=== PATIENT | female | born 1975 | race Caucasian/White ===

== ENCOUNTER 2020-11-27 08:41 | Outpatient (REF) | payer BC, SELFPAY ==
[2020-11-27 11:16] LABS: MANUAL DIFF FLAG NO
[2020-11-27 11:35] LABS: Basophils Percent Auto 0.3 % (0-2); Eosinophils Absolute Auto 0.2 X10*3/uL (0.0-0.4); Eosinophils Percent Auto 2.7 % (0-4); Hematocrit 44.6 % (37-47); Hemoglobin 14.7 g/dl (12.0-16.0); Imm Gran Abs Auto 0.02 X10*3/uL (0.00-0.03); Imm Gran Pct Auto 0.3 % (0.0-0.4); Lymphocytes Absolute Auto 1.8 X10*3/uL (1.2-4.9); Lymphocytes Percent Auto 29.1 % (20-40); Mean Corpuscular Hemoglobin 30.2 pg (27.0-33.0); Mean Corpuscular Volume 91.8 fL (80-98); Mean Platelet Volume 10.7 fL (9.4-12.3); Monocytes Absolute Auto 0.7 X10*3/uL (0.1-1.2); Monocytes Percent Auto 10.6 % (2-11); Neutrophils Absolute Auto 3.6 X10*3/uL (2.0-8.3); Platelet Count 227 X10*3/uL (160-400); Red Blood Count 4.86 X10*6/uL (4.20-5.50); Red Cell Distribution Width 13.2 % (11.0-16.0); White Blood Count 6.2 X10*3/uL (4.8-10.8)
[2020-11-27 12:12] LABS: Alanine Aminotransferase 22 U/L (0-31); Anion Gap 12 (12-20); Aspartate Amino Transferase 24 U/L (5-31); Blood Urea Nitrogen 9 mg/dL (9-16); Carbon Dioxide 26 mmol/L (22-29); Chloride 105 mmol/L (96-108); Cholesterol 228 mg/dL; Estimated Glomerular Filt Rate > 60; Glucose Fasting 84 mg/dL (60-99); HDL Cholesterol 52 mg/dL; LDL Cholesterol Calculated 152 mg/dl; Potassium 4.3 mmol/L (3.3-5.1); Sodium 139 mmol/L (135-145); TSH reflex Free T4 2.06 uIU/mL (0.32-4.0); Triglycerides 123 mg/dL; Vitamin D 25-OH Total 19.9 ng/mL (>30)
== END 2020-11-27 08:42 | disposition home or self-care (01) ==
LOC: HO.HMGCLDS 08:41
PROVIDERS: PCP Internal Medicine; Visit Provider Internal Medicine
DX: Z00.01 Encounter for general adult medical examination with abnormal findings (principal); E66.9 Obesity, unspecified; I10 Essential (primary) hypertension; Z83.49 Family history of other endocrine, nutritional and metabolic diseases
CPT/HCPCS: 36415; 80048; 80061; 82306; 84443; 84450; 84460; 85025

== ENCOUNTER → 2021-01-21 10:51 | Outpatient (BNVA) | payer BC, SELFPAY | PROVIDERS: PCP Internal Medicine; Referring Provider Internal Medicine; Visit Provider Physician Assistant ==

== ENCOUNTER 2021-03-09 09:56 | Day surgery (SDC) | payer BC, SELFPAY ==
[2021-03-03 14:45] VITALS: BMI 33.1
[2021-03-09 10:10] VITALS: BP 170/86; PULSE 73; RESP 16; TEMP 36.3; O2SAT 99
--- NOTE | 2021-03-09 10:23 | P.CONAN_ITS ---
HPI - Anesthesia Eval Consult details Narrative: 46 yo female patient for colonoscopy PMF Active Problems Active Problems: All Active Problems (Updated 02/09/21 @ 12:35 by Deidre Foster MD) Cystitis (Acute) Pedal edema (Acute) Hemorrhoids (Acute) PCOS (polycystic ovarian syndrome) (Acute) Family history of colon cancer in father (Acute) Obesity (Acute) Family history of thyroid disease in mother (Acute) History of tension headache (Acute) Past Medical History Medical History Cystitis Family history of colon cancer in father Family history of thyroid disease in mother Hemorrhoids History of cholecystitis History of tension headache Obesity PCOS (polycystic ovarian syndrome) Family History Family History Father Colon cancer, Onset Age: 44 Substance abuse Mother Oral cancer Thyroid disease Substance abuse Brother Substance abuse Family history of problems with anesthesia: No Surgical History Surgical History H/O colonoscopy History of cholecystectomy Hx of section Hx of tubal ligation History of Problems with Anesthesia: No Social History Social History Household Members Other:: , kids Alcohol intake: never Patient Tobacco Use Status: Never used Tobacco e-Cigarette/Vaping Use: Never Used Are you DNR?: No Advance Directives: No Advance Directives Information Provided: No Advance Directives on File: No Current occupational status: employed Current occupation: [employer] Allergies Allergy/AdvReac Type Severity Reaction Status Date / Time clarithromycin [From Biaxin] Allergy Mild HIVES Verified 03/09/21 10:10 Exam Exam Date and Time: March 09, 2021 1023 Height,Weight and Vital Signs: Height 5 ft 4 in Weight 87.543 kg Last Vital Signs Temp 97.3 F 03/09/21 10:10 Pulse 73 03/09/21 10:10 Resp 16 03/09/21 10:10 BP 170/86 H 03/09/21 10:10 Pulse Ox 99 03/09/21 10:10 Airway Mallampati Class: II TM Dist: >3cm Neck ROM: Full Loose/Missing/Broken Teeth: No Heart: RRR Lungs: CTAB Assessment and Plan Assessment Anesthesia Assessment: Anesthesia Plan Discussed and Chart Reviewed Final Anesthetic Review Family History of Problems with Anesthesia: No History of Problems with Anesthesia: No NPO: Yes ASA Class: II Final Preanesthetic Review: No Changes in Pt Med Stat, Meds/Allgs Chart Reviewed, Consent Obtained/Reviewed and Anes Risks/Benef Reviewed Patient Risk: Low Procedure Risk: Low Assessment/Block/Sedation in SS: Assess/Block/Sedation-SS Anesthetic Plan Anesthetic Plan: MAC: Disposition: Standard PACU
--- NOTE | 2021-03-09 10:24 | P.HPSUR_ITS ---
Pre-Procedural Eval Section A Date of Service: 03/09/21 The patient is an INPATIENT: No The History & Physical has been completed within 30 days and I have reviewed it.: No Section B Chief Complaint: hx malignant neoplasm Details of Present Illness: Colon cancer screening, family history of colon cancer and polyps Relevant Family History (Specify if Yes): Yes Relevant Social History: None Present Medications: see Short Stay Collaborative assessment Medical History: Significant History (Family history of colon cancer in father F amily history of thyroid disease in mother Hemorrhoids History of cholecystitis History of tension headache Obesity PCOS (polycystic ovarian syndrome)) History of Previous Operations: Relevant previous surgery/procedure and date(s) (H/O colonoscopy History of cholecystectomy Hx of section Hx of tubal ligation) Allergies: Allergies Allergy/AdvReac Type Severity Reaction Status Date / Time clarithromycin [From Biaxin] Allergy Mild HIVES Verified 03/09/21 10:10 Review of Systems Sugical H&P ROS: Negative: Constitution, Cardiovascular, Respiratory and Gastrointestinal Exam Surgical H&P Exam: Normal: Heart, Normal: Extremities and Normal: Abdomen Plan Diagnosis/Plan: Unchanged I have reviewed the history and physical and performed a pertinent physical examination on my patient. No changes have occurred unless specified.
[2021-03-09] MEDS: Lactated Ringers 1,000 ML 100 ML IVCONT (10:35)
--- NOTE | 2021-03-09 10:39 | P.BOP_ITS ---
Brief Operative Note Date of Service: 03/09/21 Pre-op diagnosis: Colon cancer screening, family history of colon cancer and polyps Post-op diagnosis: other (Diverticulosis, hemorrhoids) Procedure: COLONOSCOPY TILL CECUM Consent: Indications for the procedure and potential complications of bleeding, perforation, reaction to medications and missed diagnosis were discussed with the patient and informed consent was obtained. Instrument: Olympus PCF H 190 L variable stiffness pediatric colonoscope Monitoring: Vital signs and clinical assessment, intermittent blood pressure monitoring, continuous EKG monitoring, Pulse oximetry and Carbon Dioxide monitoring were done throughout the procedure. Colon withdrawl time was 22 minutes. Procedure: The patient was placed in the left lateral decubitis position and pre-procedure medications were administered. After a digital rectal examination of the ano-rectum, the video colonoscope was inserted into the rectum and advanced through the colon to the cecum. The colonoscope was slowly withdrawn in a retrograde panoramic fashion and the colon mucosa was carefully examined including a retroflexed view of the rectum. Findings and interventions are described below. Procedure Difficulty: Colon was long and tortuous and there was some loop formation. No manuvers were required Findings: Terminal Ileum: Not evaluated Cecum: Normal Ascending Colon: Normal Transverse Colon: Normal Descending Colon: Moderate diverticulosis Sigmoid Colon: Moderate diverticulosis Rectum: Normal Ano-rectum: Moderate internal hemorrhoids, hypertrophied anal papillae and perianal skin tags Colon preparation: Excellent Impression and Post Procedure Diagnosis: Colonoscopy Findings: No polyps were detected Moderate diverticulosis seen in the left colon Moderate hemorrhoids on retroflexed exam and sukhjinder-anal skin tags. Plan: Patient has an appointment on 04/01/21 in the GI [facility] with ANTONI Yoon. Repeat Colonoscopy in 5 years due to positive family hx. Above findings were reviewed with the patient and a handout on diverticulosis was given in the discharge area Surgeon: Dennis Abel MD Anesthesia: MAC (Maureen Gonzalez CRNA) Was an Field Identification Specialist used for this Procedure?: Yes Field Identification Specialist: Luisa Rosado Estimated blood loss (mL): 0 Pathology: none sent Condition: stable Disposition: PACU
[2021-03-09 11:27] VITALS: BP 100/49; PULSE 66; RESP 16; TEMP 36.1; O2SAT 96
[2021-03-09 11:42] VITALS: BP 118/74; PULSE 68; RESP 16; TEMP 35.9; O2SAT 98
--- NOTE | 2021-03-09 15:52 | W.PM.OPN ---
Operative Note Operative Note Date of Service: 03/09/21 Narrative: Pre-op diagnosis:?Colon cancer screening, family history of colon cancer and polyps Post-op diagnosis:?other (Diverticulosis, hemorrhoids) Procedure:? COLONOSCOPY TILL CECUM Consent: Indications for the procedure and potential complications of bleeding, perforation, reaction to medications and missed diagnosis were discussed with the patient and informed consent was obtained. Instrument: Olympus PCF H 190 L variable stiffness pediatric colonoscope Monitoring: Vital signs and clinical assessment, intermittent blood pressure monitoring, continuous EKG monitoring, Pulse oximetry and Carbon Dioxide monitoring were done throughout the procedure. Colon withdrawl time was 22 minutes. Procedure: The patient was placed in the left lateral decubitis position and pre-procedure medications were administered. After a digital rectal examination of the ano-rectum, the video colonoscope was inserted into the rectum and advanced through the colon to the cecum. The colonoscope was slowly withdrawn in a retrograde panoramic fashion and the colon mucosa was carefully examined including a retroflexed view of the rectum. Findings and interventions are described below. Procedure Difficulty: Colon was long and tortuous and there was some loop formation.? No manuvers were required? Findings: Terminal Ileum: Not evaluated Cecum:? Normal Ascending Colon:? Normal Transverse Colon:? Normal Descending Colon:? Moderate diverticulosis Sigmoid Colon:? Moderate diverticulosis Rectum:? Normal Ano-rectum:? Moderate internal hemorrhoids, hypertrophied anal papillae and perianal skin tags Colon preparation: Excellent ? Impression and Post Procedure Diagnosis: Colonoscopy Findings: No polyps were detected Moderate diverticulosis seen in the left colon Moderate hemorrhoids on retroflexed exam and sukhjinder-anal skin tags. Plan: Patient has an appointment on 04/01/21 in the GI Clinic with ANTONI Yoon. Repeat Colonoscopy in 5 years due to positive family hx. Above findings were reviewed with the patient and? a handout on diverticulosis was given in the discharge area Surgeon:?Dennis Abel MD Anesthesia:?MAC (Maureen Gonzalez CRNA) Was an Apartment Groundskeeper used for this Procedure?:?Yes Apartment Groundskeeper:?Luisa Rosado Estimated blood loss (mL):?0 Pathology:?none sent Condition:?stable Disposition:?PACU
== END 2021-03-09 12:14 | disposition home or self-care (01) ==
PROVIDERS: PCP Internal Medicine; Visit Provider Internal Medicine Gastroenterology
PROC: 0DJD8ZZ Inspection of Lower Intestinal Tract, Via Natural or Artificial Opening Endoscopic (ICD-10-PCS; CPT 45378; principal; 2021-03-09 11:40)
DX: Z12.11 Encounter for screening for malignant neoplasm of colon (principal); Z80.0 Family history of malignant neoplasm of digestive organs; Z83.71 Family history of colonic polyps; K57.30 Diverticulosis of large intestine without perforation or abscess without bleeding; K62.89 Other specified diseases of anus and rectum; K64.8 Other hemorrhoids; K64.4 Residual hemorrhoidal skin tags; Z88.1 Allergy status to other antibiotic agents; Z79.899 Other long term (current) drug therapy; Z90.49 Acquired absence of other specified parts of digestive tract
CPT/HCPCS: 45378

== ENCOUNTER → 2021-04-01 08:24 | Outpatient (BNVA) | payer BC, SELFPAY | PROVIDERS: Visit Provider Physician Assistant ==

== ENCOUNTER → 2021-04-14 09:01 | Outpatient (BNVA) | payer BC, SELFPAY | PROVIDERS: PCP Internal Medicine; Visit Provider Surgery | DX: K64.4 Residual hemorrhoidal skin tags (principal); K64.8 Other hemorrhoids | CPT/HCPCS: 46600 ==

== ENCOUNTER 2021-07-13 06:42 | Day surgery (SDC) | payer BC, SELFPAY ==
[2021-07-06 19:18] VITALS: BMI 33.5
--- NOTE | 2021-07-12 11:42 | P.CONAN_ITS ---
Documented by User: Ruma Ascencio NP 07/12/21 11:42 HPI - Anesthesia Eval Consult details Narrative: 46yo F for EUA, Hemorrhoidectomy colonoscopy 03/2021 with MAC [facility] Active Problems Active Problems: All Active Problems (Updated 04/14/21 @ 09:28 by Anshu Hernandez MD) Pedal edema (Acute) Bleeding hemorrhoids (Acute) Cystitis (Acute) Hemorrhoids (Acute) PCOS (polycystic ovarian syndrome) (Acute) Family history of colon cancer in father (Acute) Obesity (Acute) Family history of thyroid disease in mother (Acute) History of tension headache (Acute) Past Medical History Medical History Bleeding hemorrhoids Cystitis Family history of colon cancer in father Family history of thyroid disease in mother Hemorrhoids History of cholecystitis History of tension headache Obesity PCOS (polycystic ovarian syndrome) Family History Family History Father Colon cancer, Onset Age: 44 Substance abuse Mother Oral cancer Thyroid disease Substance abuse Brother Substance abuse Family history of problems with anesthesia: No Surgical History Surgical History (Updated 07/07/21 @ 08:44 by Valentina Matute RN) H/O colonoscopy History of cholecystectomy Hx of section Hx of tubal ligation History of Problems with Anesthesia: No Social History Social History Household Members Other:: , kids Alcohol intake: never Patient Tobacco Use Status: Never used Tobacco e-Cigarette/Vaping Use: Never Used Use of substances other than those prescribed or required for medical reasons: No Are you DNR?: No Advance Directives: No Advance Directives Information Provided: No Advance Directives on File: No Recently lost weight without trying: No Nutrition Risks: No Nutritional Risk Patient : No Current occupational status: employed 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 Allergies Allergy/AdvReac Type Severity Reaction Status Date / Time clarithromycin [From Biaxin] Allergy Mild HIVES Verified 04/14/21 09:12 Home Medications Medication Instructions Recorded Confirmed Last Taken Type Excedrin Migraine 1 tab PO NEEDED 07/06/21 07/06/21 Unknown History Exam Exam Date and Time: July 12, 2021 1142 Height,Weight and Vital Signs: Height 5 ft 4 in Weight 88.451 kg Assessment and Plan Assessment Anesthesia Assessment: Chart Reviewed Final Anesthetic Review Family History of Problems with Anesthesia: No History of Problems with Anesthesia: No Documented by User: Messi Varela 07/13/21 08:33 [facility] Past Medical History Medical History Bleeding hemorrhoids Cystitis Family history of colon cancer in father Family history of thyroid disease in mother Hemorrhoids History of cholecystitis History of tension headache Obesity PCOS (polycystic ovarian syndrome) Functional capacity: independent ambulation Family History Family History Father Colon cancer, Onset Age: 44 Substance abuse Mother Oral cancer Thyroid disease Substance abuse Brother Substance abuse Surgical History Surgical History (Updated 07/07/21 @ 08:44 by Valentina Matute, LEAH) H/O colonoscopy History of cholecystectomy Hx of section Hx of tubal ligation Social History Social History Household Members Other:: , kids Alcohol intake: never Patient Tobacco Use Status: Never used Tobacco e-Cigarette/Vaping Use: Never Used Use of substances other than those prescribed or required for medical reasons: No Are you DNR?: No Advance Directives: No Advance Directives Information Provided: No Advance Directives on File: No Recently lost weight without trying: No Nutrition Risks: No Nutritional Risk Patient : No Current occupational status: employed 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 Allergies Allergy/AdvReac Type Severity Reaction Status Date / Time clarithromycin [From Biaxin] Allergy Mild HIVES Verified 04/14/21 09:12 Home Medications Medication Instructions Recorded Confirmed Last Taken Type Excedrin Migraine 1 tab PO NEEDED 07/06/21 07/06/21 Unknown History Exam Airway Mallampati Class: II Neck ROM: Full Loose/Missing/Broken Teeth: Yes Heart: rrr Lungs: bl breath sounds Assessment and Plan Final Anesthetic Review NPO: Yes ASA Class: II Final Preanesthetic Review: Meds/Allgs Chart Reviewed and Anes Risks/Benef Reviewed Patient Risk: Intermediate Procedure Risk: Intermediate Anesthetic Plan Anesthetic Plan: GA Disposition: Standard PACU
[2021-07-13] VITALS (14 sets, daily range): BP systolic 123–168; BP diastolic 72–102; PULSE 69–97; RESP 13–16; TEMP 36.1–36.3; O2SAT 98–100
[2021-07-13] MEDS: Lactated Ringers 1,000 ML 100 ML IVCONT (07:11)
--- NOTE | 2021-07-13 07:26 | MHC.SHP ---
Pre-Procedural Eval Section A Date of Service: 07/13/21 Section B Chief Complaint: Bleeding hemorrhoids Details of Present Illness: has bulky prolapsing hemorrhoids Relevant Family History (Specify if Yes): Yes Relevant Social History: Other (specify) Present Medications: see Short Stay Collaborative assessment Medical History: Significant History (obesity, PCOS, ) History of Previous Operations: No relevant previous surgery Allergies: Allergies Allergy/AdvReac Type Severity Reaction Status Date / Time clarithromycin [From Biaxin] Allergy Mild HIVES Verified 04/14/21 09:12 Review of Systems Sugical H&P ROS: Negative: Constitution, Cardiovascular, Respiratory, Neurological, Psychiatric, Hem-Onc, Allergic/Immunologic, Gastrointestinal, Genitourinary, Musculoskeletal, Integumentary, Endocrine and Eyes/Ears/Nose/Throat Exam Surgical H&P Exam: Normal: HEENT, Normal: Heart, Normal: Lungs, Normal: Extremities, Normal: Abdomen, Normal: Skin and Normal: Neurological Exam Comment: bulky hemorrhoids Plan Diagnosis/Plan: Unchanged I have reviewed the history and physical and performed a pertinent physical examination on my patient. No changes have occurred unless specified.
--- NOTE | 2021-07-13 09:31 | P.OP_ITS ---
Operative Note Operative Note Date of Service: 07/13/21 Narrative: Ppreop diagnosis: Internal and external hemorrhoids with bleeding Postop diagnosis: The same Procedure: Exam under anesthesia, Hemorrhoidectomy x2 columns Surgeon: Anshu Hernandez MD The patient is a 46-year-old female chronic complaints of large hemorrhoids with frequent bleeding. She understood the technique of hemorrhoidectomy. She was aware of the risks, benefits, and alternatives . She was brought to the operating room prone giovani-knife position under general anesthesia via endotracheal tube. The buttocks were retracted with wide tape laterally. The perianal area was prepped and draped in the usual sterile fashion. A surgical time-out was done. The patient received Cefotan 2 g IV preoperatively The perianal area was then infiltrated with lidocaine 1%. Examination of the anal orifice revealed bulky external hemorrhoids on the left and on the right side. I inserted abuse Staton retractor and examined the anal canal circumferentially. These hemorrhoidal columns were noted to mix of internal external. There were no other lesions seen. I proceeded to apply Gamboa grasper at the hemorrhoidal column on the left. This was used to retract the hemorrhoidal column. I applied a fqauae-cm-dhtfw chromic 3-0 stitch at this pedicle past the dentate line. I made an incision around this hemorrhoidal column he all the way to the perianal skin using blade 15. I excised this hemorrhoidal column above the plane of sphincters along this incision using Metzenbaum scissors. I closed the incision with arunning chromic 3-0 stitch with additional hemostatic jwyyzg-hu-ncpnx sutures being placed . The same procedure was duplicated on the hemorrhoidal column on the right. Again I applied a Gamboa grasper at this hemorrhoidal column. I made a zrfixe-fm-jhvff stitch at the pedicle using chromic 3-0. I may incision are this hemorrhoid column to the perianal skin using a blade 15. I excised this hemorrhoidal column along this incision above the plane of sphincters using scissors. I closed this incision with a running chromic 3-0 stitch. Additional hemostatic jzlkeh-ao-qjkai sutures were placed Once hemostasis was ensured, infiltrated the perianal area with Marcaine 0.5% fo r postop analgesia. The procedure was then completed The patient tolerated procedure well. There were no complication noted. Initial and final counts of sponges and instruments were correct. Estimated blood loss was about 25 cc The patient was extubated without difficulty and transferred to the recovery room with stable vital signs.
[2021-07-13] MEDS: oxyCODONE HCl Immed Release 5 MG TABLET 10 MG PO (10:19)
[2021-07-13] MEDS: fentaNYL citrate/PF 100 MCG/2 ML VIAL 25 MCG IVPUSH ×3 (10:21→10:43)
== END 2021-07-13 11:45 | disposition home or self-care (01) ==
PROVIDERS: PCP Internal Medicine; Visit Provider Surgery
PROC: (CPT 46260; principal; 2021-07-13 08:20)
DX: K64.8 Other hemorrhoids (principal); K64.4 Residual hemorrhoidal skin tags; Z88.1 Allergy status to other antibiotic agents; Z80.0 Family history of malignant neoplasm of digestive organs; Z79.899 Other long term (current) drug therapy; Z90.49 Acquired absence of other specified parts of digestive tract
CPT/HCPCS: 46260; 88304; J1100; J2250; J2405; J3010

== ENCOUNTER → 2021-07-26 08:51 | Outpatient (BNVA) | payer BC, SELFPAY | PROVIDERS: PCP Internal Medicine; Referring Provider Internal Medicine; Visit Provider Surgery ==

== ENCOUNTER → 2021-08-16 09:45 | Outpatient (BNVA) | payer BC, SELFPAY | PROVIDERS: PCP Internal Medicine; Referring Provider Internal Medicine; Visit Provider Surgery ==

== ENCOUNTER 2021-11-26 10:54 | Outpatient (REF) | payer BC, SELFPAY ==
[2021-11-26 14:01] LABS: Alanine Aminotransferase 11 U/L (0-31); Anion Gap 10 (12-20); Aspartate Amino Transferase 17 U/L (5-31); Blood Urea Nitrogen 9 mg/dL (9-16); Carbon Dioxide 26 mmol/L (22-29); Chloride 106 mmol/L (96-108); Cholesterol 232 mg/dL; Estimated Glomerular Filt Rate > 60; Glucose Fasting 80 mg/dL (60-99); HDL Cholesterol 50 mg/dL; LDL Cholesterol Calculated 161 mg/dl; Potassium 4.1 mmol/L (3.3-5.1); Sodium 138 mmol/L (135-145); Triglycerides 107 mg/dL
[2021-11-26 14:25] LABS: Vitamin D 25-OH Total 31.8 ng/mL (>30)
== END 2021-11-26 10:55 | disposition home or self-care (01) ==
LOC: HO.HMGCLDS 10:54
PROVIDERS: PCP Internal Medicine; Visit Provider Internal Medicine
DX: Z00.01 Encounter for general adult medical examination with abnormal findings (principal); E55.9 Vitamin D deficiency, unspecified; E66.9 Obesity, unspecified
CPT/HCPCS: 36415; 80048; 80061; 82306; 84450; 84460

== ENCOUNTER 2021-12-14 07:27 | Outpatient (REF) | payer BC, SELFPAY ==
--- NOTE | ~2021-12-14 | MM_ITS ---
EXAMINATION: MM SCREENING DIGITAL BREAST TOMOSYNTHESIS, BILATERAL CLINICAL INFORMATION: Screening. Asymptomatic. The lifetime risk of breast cancer based on the Tyrer-Cuzick Model is 12%. COMPARISON: Outside mammography: 07/05/2019, 01/11/2018, 12/28/2017, 02/01/2016 ([facility]). TECHNIQUE: Digital breast tomosynthesis is performed in both the craniocaudal and mediolateral oblique views along with computer-aided detection (CAD). Synthesized 2D images are generated from the tomosynthesis. FINDINGS: There are scattered areas of fibroglandular density (ACR BI-RADS breast composition Category b). Parenchymal pattern is similar to prior outside studies. There is no developing density or interval mass or architectural abnormality. Minor asymmetries central left breast on CC view is chronic. There are no abnormal calcifications. The axilla and skin contours are unremarkable. No significant changes. MM/MM tomosynthesis screening BI IMPRESSION: No mammographic evidence of malignancy. ASSESSMENT: BI-RADS 2: Benign RECOMMENDATION: Routine annual mammography screening. This patient's information was entered into a reminder system with a target due date for their next mammogram.
== END 2021-12-14 07:28 | disposition home or self-care (01) ==
LOC: HO.MAMMO 07:27
PROVIDERS: PCP Internal Medicine; Visit Provider Internal Medicine
DX: Z12.31 Encounter for screening mammogram for malignant neoplasm of breast (principal)
CPT/HCPCS: 77063; 77067

== ENCOUNTER 2022-06-10 15:21 | Outpatient (REF) | payer BC, SELFPAY ==
[2022-06-16 07:31] LABS: HPV mRNA E6/E7 rflx Not Detected (Not Detected)
== END 2022-06-10 15:22 | disposition home or self-care (01) ==
LOC: HO.LNP 15:21
PROVIDERS: Visit Provider Advanced Practice Midwife
DX: Z01.419 Encounter for gynecological examination (general) (routine) without abnormal findings (principal); Z11.51 Encounter for screening for human papillomavirus (HPV); N92.0 Excessive and frequent menstruation with regular cycle
CPT/HCPCS: 87624; 88142

== ENCOUNTER 2022-06-10 15:30 | Outpatient (REF) | payer BC, SELFPAY ==
[2022-06-10 16:03] LABS: Hemoglobin 13.7 g/dl (12.0-16.0); Mean Corpuscular HGB Conc 33.4 g/dl (31.0-35.0); Mean Corpuscular Hemoglobin 29.9 pg (27.0-33.0); Mean Corpuscular Volume 89.5 fL (80.0-98.0); Mean Platelet Volume 10.4 fL (9.4-12.3); Platelet Count 240 X10*3/uL (160-400); Red Blood Count 4.58 X10*6/uL (4.20-5.50); Red Cell Distribution Width 13.6 % (11.0-16.0); White Blood Count 9.1 X10*3/uL (4.8-10.8)
[2022-06-10 16:34] LABS: Thyroid Stimulating Hormone 2.23 uIU/mL (0.32-4.0)
[2022-06-10 18:12] LABS: CT PCR NOT DETECTED (Not Detect.); NG PCR NOT DETECTED (Not Detect.)
[2022-06-11 15:00] LABS: BV Int Neg Control Negative (Negative); BV Int Pos Control Positive (Positive)
== END 2022-06-10 15:31 | disposition home or self-care (01) ==
LOC: HO.LAB 15:30
PROVIDERS: PCP Internal Medicine; Visit Provider Advanced Practice Midwife
DX: Z11.3 Encounter for screening for infections with a predominantly sexual mode of transmission (principal); N92.1 Excessive and frequent menstruation with irregular cycle
CPT/HCPCS: 84443; 85027; 87480; 87491; 87510; 87591; 87660

== ENCOUNTER 2022-07-06 13:40 | Outpatient (REF) | payer BC, SELFPAY ==
--- NOTE | ~2022-07-06 | US_ITS ---
EXAMINATION: US PELVIS CLINICAL INFORMATION: Excessive and frequent menstruation with irregular cycle. COMPARISON: None TECHNIQUE: Ultrasound of the pelvis was performed using both transabdominal and transvaginal transducers along with Doppler. Transvaginal imaging was performed due to inadequate visualization transabdominally. FINDINGS: UTERUS: The uterus is anteverted and measures 8.9 x 5.4 x 5.6 cm. The double wall endometrial thickness is 1.3 cm. The uterus is smooth in contour and has normal myometrial echogenicity. There is a solitary isoechoic lesion in the anterior upper body of uterus measuring 1.1 x 0.93 x 1.5 cm suggestive of a fibroid. No additional lesions are seen. There are anechoic cysts seen in the cervix. ADNEXA: Both ovaries are visualized. There is normal color flow to the adnexa. There is no ovarian torsion. There is no pelvic ascites or fluid collection. Right ovary measures 2.95 x 1.41 x 2.73 cm and volume 5.95 mL. No focal lesion seen. Left ovary measures 4.21 x 1.63 x 2.80 cm and volume 10.6 mL. There is an anechoic cyst measuring 1.3 x 1.1 x 1.4 cm. There is no free fluid in the cul-de-sac. US/US pelvic and transvaginal IMPRESSION: 1. Small uterine fibroid. 2. Small nabothian cysts in the cervix. 3. Simple cyst left ovary. 4. The right ovary is unremarkable.
== END 2022-07-06 13:41 | disposition home or self-care (01) ==
LOC: HO.HMGCX 13:40
PROVIDERS: Visit Provider Advanced Practice Midwife
DX: N92.0 Excessive and frequent menstruation with regular cycle (principal)
CPT/HCPCS: 76830; 76856

== ENCOUNTER 2022-07-21 08:05 | Outpatient (REF) | payer BC, SELFPAY | END 2022-07-21 08:06 | disposition home or self-care (01) | LOC: HO.LNP 08:05 | PROVIDERS: PCP Internal Medicine; Visit Provider Advanced Practice Midwife | DX: Z71.2 Person consulting for explanation of examination or test findings (principal); N94.6 Dysmenorrhea, unspecified; N92.0 Excessive and frequent menstruation with regular cycle | CPT/HCPCS: 58100; 81025; 88305 ==

== ENCOUNTER → 2022-08-03 07:57 | Outpatient (BNVA) | payer BC, SELFPAY | PROVIDERS: PCP Internal Medicine; Visit Provider Advanced Practice Midwife | DX: N92.0 Excessive and frequent menstruation with regular cycle (principal) ==

== ENCOUNTER → 2022-08-11 14:33 | Outpatient (BNVA) | payer BC, SELFPAY | PROVIDERS: PCP Internal Medicine; Visit Provider Advanced Practice Midwife | DX: Z30.430 Encounter for insertion of intrauterine contraceptive device (principal) | CPT/HCPCS: 58300; 81025; J7298 ==

== ENCOUNTER 2022-08-26 07:45 | Outpatient (REF) | payer BC, SELFPAY ==
[2022-08-26 11:21] LABS: MANUAL DIFF FLAG NO
[2022-08-26 11:34] LABS: Basophils Percent Auto 0.5 % (0-2); Eosinophils Absolute Auto 0.2 X10*3/uL (0.0-0.4); Eosinophils Percent Auto 3.4 % (0-4); Hematocrit 39.9 % (37.0-47.0); Hemoglobin 13.3 g/dl (12.0-16.0); Imm Gran Abs Auto 0.02 X10*3/uL (0.00-0.03); Imm Gran Pct Auto 0.3 % (0.0-0.4); Lymphocytes Percent Auto 32.5 % (20-40); Mean Corpuscular HGB Conc 33.3 g/dl (31.0-35.0); Mean Corpuscular Hemoglobin 29.7 pg (27.0-33.0); Mean Corpuscular Volume 89.1 fL (80.0-98.0); Mean Platelet Volume 10.7 fL (9.4-12.3); Monocytes Absolute Auto 0.5 X10*3/uL (0.1-1.2); Monocytes Percent Auto 8.6 % (2-11); Neutrophils Absolute Auto 3.4 x10*3/uL (2.0-8.3); Neutrophils Percent Auto 54.7 % (45-73); Platelet Count 230 X10*3/uL (160-400); Red Blood Count 4.48 X10*6/uL (4.20-5.50); Red Cell Distribution Width 13.8 % (11.0-16.0); White Blood Count 6.1 X10*3/uL (4.8-10.8)
[2022-08-26 12:58] LABS: Alanine Aminotransferase 13 U/L (0-31); Anion Gap 12 (12-20); Aspartate Amino Transferase 17 U/L (5-31); Blood Urea Nitrogen 12 mg/dL (9-16); Calcium 8.7 mg/dL (8.4-10.2); Carbon Dioxide 23 mmol/L (22-29); Chloride 107 mmol/L (96-108); Cholesterol 216 mg/dL; Estimated Glomerular Filt Rate > 60; Glucose Fasting 99 mg/dL (60-99); HDL Cholesterol 50 mg/dL; LDL Cholesterol Calculated 142 mg/dl; Potassium 4.1 mmol/L (3.3-5.1); Sodium 138 mmol/L (135-145); Triglycerides 121 mg/dL
== END 2022-08-26 07:46 | disposition home or self-care (01) ==
LOC: HO.HMGCLDS 07:45
PROVIDERS: PCP Internal Medicine; Visit Provider Internal Medicine
DX: I10 Essential (primary) hypertension (principal); N92.0 Excessive and frequent menstruation with regular cycle
CPT/HCPCS: 36415; 80048; 80061; 84450; 84460; 85025

== ENCOUNTER → 2022-09-22 08:21 | Outpatient (BNVA) | payer BC, SELFPAY | PROVIDERS: PCP Internal Medicine; Visit Provider Advanced Practice Midwife | DX: Z13.89 Encounter for screening for other disorder (principal) ==

== ENCOUNTER 2022-11-15 07:11 | Outpatient (REF) | payer BC, SELFPAY ==
[2022-11-15 12:11] LABS: Alanine Aminotransferase 22 U/L (0-31); Anion Gap 9 (12-20); Aspartate Amino Transferase 20 U/L (5-31); Blood Urea Nitrogen 14 mg/dL (9-16); Carbon Dioxide 26 mmol/L (22-29); Chloride 110 mmol/L (96-108); Cholesterol 198 mg/dL; Estimated Glomerular Filt Rate > 60; Glucose Fasting 93 mg/dL (60-99); HDL Cholesterol 42 mg/dL; LDL Cholesterol Calculated 140 mg/dl; Potassium 4.2 mmol/L (3.3-5.1); Sodium 141 mmol/L (135-145); Triglycerides 83 mg/dL
== END 2022-11-15 07:12 | disposition home or self-care (01) ==
LOC: HO.HMGCLDS 07:11
PROVIDERS: PCP Internal Medicine; Visit Provider Internal Medicine
DX: E78.5 Hyperlipidemia, unspecified (principal); I10 Essential (primary) hypertension; E66.9 Obesity, unspecified
CPT/HCPCS: 36415; 80048; 80061; 84450; 84460

== ENCOUNTER 2022-11-16 11:07 | Outpatient (REF) | payer BC, SELFPAY ==
[2022-11-17 09:18] LABS: BV Int Neg Control Negative (Negative); BV Int Pos Control Positive (Positive)
== END 2022-11-16 11:08 | disposition home or self-care (01) ==
LOC: HO.LAB 11:07
PROVIDERS: PCP Internal Medicine; Visit Provider Advanced Practice Midwife
DX: N92.1 Excessive and frequent menstruation with irregular cycle (principal); R10.2 Pelvic and perineal pain; Z97.5 Presence of (intrauterine) contraceptive device
CPT/HCPCS: 81025; 87480; 87510; 87660

== ENCOUNTER 2022-11-30 12:16 | Outpatient (AMB) | payer BC, SELFPAY ==
--- NOTE | 2022-11-30 13:10 | A.OFFPC_ITS ---
Vital Signs 11/30/22 13:12 Height 5 ft 4 in Weight 191 lb BMI 32.8 BP 124/86 Blood Pressure Location Rt brachial Position Sitting Pulse 70 Pulse Source Pulse Oximeter Pulse Oximetry (%) 97 Oxygen Delivery Method Room Air Intake Visit Reasons: PE Intake Note: Pt is here today for her PE Allergies clarithromycin [From Biaxin] Allergy (Mild, Verified 07/04/23 00:30) HIVES Medication List - Last Reconciled 11/30/22 by Deidre Foster MD cetirizine (Zyrtec) 10 mg PO DAILY PRN ibuprofen 200 mg PO Q6H PRN levonorgestrel (Mirena) intrauterine losartan 50 mg PO DAILY multivitamin 1 tab PO DAILY Tobacco use date assessed: 11/30/22 HPI PE HPI Details 48-year-old lady with hypertension, dysl ipidemia, here today for physical exam. She had recent fasting labs done which showed normal electrolytes, fasting glucose and lipids except for elevated LDL cholesterol at 140 mg/dL. Complains of persistent pain in her left side of her neck which has been present now for the last week. Denies any history of trauma or any heavy lifting. This was accompanied occasionally by intermittent episodes of lightheadedness especially sudden changes in position. [facility]LY [facility] Medical History Fibroids Neck pain on left side Dyslipidemia Essential hypertension Obesity (BMI 30.0-34.9) Seasonal allergic rhinitis Hemorrhoids PCOS (polycystic ovarian syndrome) Family history of colon cancer in father Family history of thyroid disease in mother History of cholecystitis History of tension headache Surgical History History of hemorrhoidectomy (~07/2021) H/O colonoscopy History of cholecystectomy Hx of section Hx of tubal ligation Family History Father Colon cancer, Onset Age: 44 Substance abuse Mother Oral cancer Thyroid disease Substance abuse Brother Substance abuse Household Members Other:: , kids Housing Other:: mobile home Alcohol intake: never Patient Tobacco Use Status: Never used Tobacco e-Cigarette/Vaping Use: Never Used Current occupational status: employed 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 1. Little interest or pleasure in doing things: not at all 2. Feeling down, depressed, or hopeless: not at all 3. Trouble falling or staying asleep, or sleeping too much: not at all 4. Feeling tired or having little energy: several days 5. Poor appetite or overeating: not at all 6. Feeling bad about yourself - or that you are a failure or have let yourself or your family down: not at all 7. Trouble concentrating on things, such as reading the newspaper or watching television: not at all 8. Moving or speaking so slowly that other people could have noticed. Or the opposite - being so fidgety or restless that you have been moving around a lot more than usual: not at all 9. Thoughts that you would be better off or of hurting yourself in some way: not at all Total score: 1 Source: Developed by Drs. Leonel Ely, Lesia Saenz, Luis F Pulido and colleagues, with an educational rebecca from [employer]. Thrive Questionnaire Declines Thrive assessment: No Date Thrive assessed: 11/30/22 I am a: Patient What is your living situation today?: I have a steady place to live Within the past 12 months, did the food you bought not last and you didn't have the money to get more?: Never true Within the past 12 months, did you worry whether your food would run out before you got money to buy more?: Never true Do you have trouble paying for medicines?: No Do you have trouble getting transportation to medical appointments?: No Do you have trouble paying your heating and electricity bill?: No Do you have trouble taking care of your child, family member or friend?: No Do you have trouble with day-to-day activities such as bathing, preparing meals, shopping, managing finances, etc.?: No Are you currently unemployed and looking for a job?: No Are you interested in more education?: No KEN-7 AMB Questionnaire KEN-7 Date KEN - 7 assessed: 11/30/22 Feeling nervous, anxious, or on edge: 0 = Not at all Not being able to stop or control worryin = Not at all Worrying too much about different things: 0 = Not at all Trouble relaxin = Not at all Being so restless that it is hard to sit still: 0 = Not at all Becoming easily annoyed or irritable: 0 = Not at all Feeling afraid as if something awful might happen: 0 = Not at all Total KEN-7 score (0-4 normal; 5-9 mild; 10-14 moderate; 15-21 severe): 0 Source: Developed by Drs. Leonel Ely, Lesia Saenz, Luis F Pulido and colleagues, with an educational rebecca from [employer]. Review of Systems Const Denies body aches and Denies weakness Eyes Denies change in vision ENT Denies dizziness, Denies nasal congestion and Denies nasal discharge Card Denies chest pain, Denies lightheadedness and Denies dyspnea Resp Denies cough and Denies dyspnea GI Denies abdominal pain, Denies change in bowel habits and Denies heartburn Denies urinary frequency, Denies dysuria and Denies urinary urgency Musc Reports no additional complaints Skin/Breast Denies breast pain, Denies breast mass and Denies rash Neuro Denies dizziness and Denies weakness Psych Reports no additional complaints Endo Reports no additional complaints Alex/Lymph Reports no additional complaints Aller/Immun Reports seasonal rhinorrhea Physical exam (Primary Care) Vital Signs: Last Vital Signs Pulse 70 11/30/22 13:12 BP 124/86 11/30/22 13:12 Pulse Ox 97 11/30/22 13:12 Oxygen Delivery Method Room Air 11/30/22 13:12 BMI result Body Mass Index 32.8 Tobacco/Smoking Status: Tobacco use Status Tobacco use date assessed 11/30/22 11/30/22 13:20 Patient Tobacco Use Status Never used Tobacco 11/30/22 13:20 e-Cigarette/Vaping Use Never Used 11/30/22 13:20 PHQ-9: PHQ-9 Score PHQ-9: Total score 1 07/04/23 00:29 Thrive Assessment: Date of Thrive Assessment Date Thrive assessed 11/30/22 11/30/22 13:20 Const Other: Alert oriented x3, no acute distress noted ambulatory normal gait Nutritional Appearance: obese Orientation/consciousness: patient oriented x3 [facility] Ears: hearing grossly normal bilaterally General nose exam: Normal external nose present Face and sinus: Yes sinuses nontender and Yes face symmetric Mouth: Normal oral and palatal mucosa present, oropharynx normal and moist mucous membranes Eyes General: appearance normal, both eyes and all related structures Neck Neck: Yes full ROM, Yes no lymphadenopathy and Yes supple Chest Breast/axilla palpation: normal palpation of the breasts Resp Effort & Inspection: normal respiratory effort and able to speak in complete sentences Auscultation: clear to auscultation bilaterally Cardio Other: S1-S2 present regular rate rhythm no murmurs GI Inspection: Yes normal to inspection Palpation (GI): Soft to palpation, nontender, no guarding and no masses Auscultation: normal bowel sounds General: Yes other (Sees OB for routine Pap and pelvic exam) Back/Spine/Pelvis Cervical Spine: cervical muscular tenderness (On the left) Skin Lesions: no lesions Rashes: no rashes Trauma: no lacerations or abrasions Neuro General: patient oriented x3, gait normal, tone normal, moves all extremities, no focal motor deficits and CN's II-XI intact bilaterally Extrem General: Yes full ROM, Yes no joint enlargement, Yes no pedal edema and Yes normal gait Results Reviewed Results Reviewed: RUN: 11/30/22 2621 PAGE 1 [facility] [address] [place] [id number] Beef Trimmer: Clifford Blair M.D. Specimen Inquiry Name: Chary Restrepo Age/Sex: 47/F : 1975 Unit#: [id number] Attend Dr: Deidre Foster MD Re11/15/22 Status: DEP REF Location: [facility] Disch: SPEC : [id number] ERASMO: 11/15/22 STATUS: COMP REQ : [id number] RECD: 11/15/22-11[address] [facility] [address]: Deidre Foster MD COMP: 11/15/22-1210 ENTERED: 11/15/[address] [facility] [address]: ORDERED: Met Prof Fast, AST, ALT, Lipid Panel Test Result Flag Reference Site Sodium 141 135-145 mmol/L Potassium 4.2 3.3-5.1 mmol/L CL 110 H 96-108 mmol/L CO2 26 22-29 mmol/L Gap 9 L 12-20 BUN 14 9-16 mg/dL Creat 0.75 0.5-1.4 mg/dL EGFR > 60 NOTE: For -Gambian individuals, multiply the result by 1.210. Chronic Kidney Disease: Estimated GFR < 60 mL/min/1.7 3m2 Severe Kidney Disease: Estimated GFR < 15 mL/min/1.73m2 FBS 93 60-99 mg/dL CA 9.0 8.4-10.2 mg/dL AST (GOT) 20 5-31 U/L ALT (GPT) 22 0-31 U/L Triglyceride 83 mg/dL Desirable Triglyceride: less than 150 mg/dL Borderline High Triglyceride 150-199 mg/dL High Triglyceride: 200-499 mg/dL Very High Triglyceride: greater than or equal to 5OO mg/dL Chol 198 mg/dL Desirable Cholesterol: less than 200 mg/dL Borderline High Cholesterol: 200-239 mg/dL High Cholesterol: greater than 239 mg/dL LDL Calculated 140 mg/dl Desirable LDL: less than 100 mg/dL Near Optimal/Above Optimal LDL: 110-129 mg/dL Borderline High LDL: 130-159 mg/dL High LDL: 160-189 mg/dL Very High LDL: greater than or equal to 190 mg/dL HDL 42 mg/dL Desirable HDL: greater than 40 mg/dL Assessment and Plan Assessment & Plan (1) Annual visit for general adult medical examination with abnormal findings: Code(s): Z00.01 - Encounter for general adult medical examination with abnormal findings Plan: Will check appropriate labs. Recommended dental visit every 6 months and regular eye exams, at least every 2 years. Take adequate calcium in diet and vitamin-D 3 at 2000 IU per cap once a day, in addition to weight-bearing exercises to help maintain good muscle tone and weight control. Instructed to do self-breast exam, and continue to get yearly mammogram, has an appointment for her mammogram next month . She is also up-to-date with her screening colonoscopy done by Dr. Abel in 2020 with no polyps seen only hemorrhoids and moderate diverticulosis . She also is up-to-date with her cervical cancer screening, sees [facility] for her routine Pap and pelvic exam (2) Positional lightheadedness: Code(s): R42 - Dizziness and giddiness (3) Neck pain on left side: Code(s): M54.2 - Cervicalgia Plan: Advised to take ibuprofen 200 mg every 6 hours as needed for pain control, referred for physical therapy (4) Dyslipidemia: Code(s): E78.5 - Hyperlipidemia, unspecified Plan: Reviewed recent fasting lipid profile with patient with elevated LDL cholesterol at 140 mg/dL. . Continue with , in addition to adherence to low- cholesterol diet and regular exercise, at least 30 minutes 3 to 4 times a week. Advised patient to make healthy food choices, eat more fruits, vegetables, whole grains, wild caught fish and low-fat dairy. Limit amount of meat and fried or fatty food products, as well as processed foods and fast foods. Follow-up scheduled with repeat fasting lipid panel in months. (5) Essential hypertension: Code(s): I10 - Essential (primary) hypertension Plan: Blood pressure at goal of less than 130/80. Continue with current medication. Reinforced importance of following a low sodium diet, getting regular exercise, and lowering stress levels. (6) Obesity (BMI 30.0-34.9): Code(s): E66.9 - Obesity, unspecified Plan: Discussed need to increase activity and wt reduction. Recommended focusing on improving your health instead of dieting. : Eat Mediterranean diet, limit foods high in fat, sugar, and calories, eat slowly, pay attention to portion sizes, plan your meals ahead of time, start regular physical activity 150 minutes of moderate intensity exercise or 90 minutes/week of vigorous exercise and increase water intake. (7) Seasonal allergic rhinitis: Code(s): J30.2 - Other seasonal allergic rhinitis Qualifiers: Allergic rhinitis trigger: unspecified Qualified Code(s): J30.2 - Other seasonal allergic rhinitis Plan: Continue with cetirizine 10 mg at bedtime. (8) Family history of colon cancer in father: Comment: repeat symptomatic colonoscopy- 5 years- 2025 Code(s): Z80.0 - Family history of malignant neoplasm of digestive organs Plan: Patient already been seen by Dr. Abel who did a colonoscopy in 2020 with no polyps seen, showed presence of a moderate diverticulosis and presence of hemorrhoids external Orders: Orders PT Evaluation and Treatment 11/30/22 R42 - Dizziness and giddiness PT Evaluation and Treatment 11/30/22 M54.2 - Cervicalgia Coding Level of Care Code Est Pt Prev Care 40-64y(62325) Diagnoses Annual visit for general adult medical examination with abnormal findings Z00.01 Positional lightheadedness R42 Neck pain on left side M54.2 Dyslipidemia E78.5 Essential hypertension I10 Obesity (BMI 30.0-34.9) E66.9 Seasonal allergic rhinitis, unspecified trigger J30.2 Allergic rhinitis trigger: unspecified Family history of colon cancer in father Z80.0
[2022-11-30 13:12] VITALS: BP 124/86; PULSE 70; O2SAT 97; BMI 32.8
== END 2022-11-30 13:51 | disposition home or self-care (01) ==
LOC: HO.HMGC 12:16
PROVIDERS: PCP Internal Medicine; Visit Provider Internal Medicine
DX: Z00.00 Encounter for general adult medical examination without abnormal findings (principal); R42 Dizziness and giddiness; M54.2 Cervicalgia; E78.5 Hyperlipidemia, unspecified; I10 Essential (primary) hypertension; E66.9 Obesity, unspecified; J30.2 Other seasonal allergic rhinitis; Z80.0 Family history of malignant neoplasm of digestive organs
CPT/HCPCS: 99396

== ENCOUNTER 2022-12-20 07:22 | Outpatient (REF) | payer BC, SELFPAY ==
--- NOTE | ~2022-12-20 | MM_ITS ---
EXAMINATION: MM SCREENING DIGITAL BREAST TOMOSYNTHESIS, BILATERAL CLINICAL INFORMATION: Screening. Asymptomatic. The lifetime risk of breast cancer based on the Tyrer-Cuzick Model is 12%. COMPARISON: Mammography: 12/14/2021; outside mammography 07/05/2019, 01/11/2018, 12/28/2017 ([facility]). TECHNIQUE: Digital breast tomosynthesis is performed in both the craniocaudal and mediolateral oblique views along with computer-aided detection (CAD). Synthesized 2D images are generated from the tomosynthesis. FINDINGS: There are scattered areas of fibroglandular density (ACR BI-RADS breast composition Category b). There are no significant masses, abnormal calcifications, or other abnormalities. Parenchymal pattern is similar to prior studies. There is no developing density or architectural abnormality. The axilla and skin contours are unremarkable. No significant changes. MM/MM tomosynthesis screening BI IMPRESSION: No mammographic evidence of malignancy. ASSESSMENT: BI-RADS 1: Negative RECOMMENDATION: Routine annual mammography screening. This patient's information was entered into a reminder system with a target due date for their next mammogram.
== END 2022-12-20 07:23 | disposition home or self-care (01) ==
LOC: HO.MAMMO 07:22
PROVIDERS: PCP Internal Medicine; Visit Provider Internal Medicine
DX: Z12.31 Encounter for screening mammogram for malignant neoplasm of breast (principal)
CPT/HCPCS: 77063; 77067

== ENCOUNTER 2023-01-31 15:00 | Outpatient (RCR) | payer BC, SELFPAY ==
--- NOTE | 2022-12-23 08:56 | MHC.PT.EP ---
[facility] [place] Office [place] Office [place] Office [address] [phone] F: [phone] F: [phone] F: [phone] F: [phone] Physical Therapy Plan of Care Date of Evaluation: Date of Surgery: Diagnosis: cervicalgia Assessment: 47 y/o RHD female referred to PT with cervicalgia. S/s consistent with L shoulder tendinopathy and cervical dysfunction resulting in pain with reaching, lifting, dressing, sitting unsupported, pushing, walking with arm swing secondary to decreased shoulder AROM, TTP medial L scapular border/ UT/ infraspinatus, impaired postural awareness, decreased scapular and RTC strength and slightly limited cervical AROM. Recommend PT 2x/week for 6 weeks to address impairments, implement HEP, and optimize functional mobility. Frequency and Duration: The patient will be seen 2x/week for 6 weeks Short Term Goals: 3 weeks Compliant with HEP Improve L shoulder AROM flexion to 150 with pain < 3/10 Jail Goals: 6 weeks I with HEP and self management of sx Pt will improved L shoulder strength by one MMT to facilitate lifting Pt will reports > 50% decrease in pain levels (IR ranges 3-7) Treatment Plan: Modalities to reduce pain, spasms and effusion. Manual therapy to restore motion and function. Therapeutic exercise to improve strength and flexibility. Neuromuscular re-education for posture and balance. Therapeutic activities to return to functional activities of daily living. Electronically signed by: Viktoriya Sevilla PT Please sign and return to therapist. Thank you for your referral.
--- NOTE | 2023-02-03 08:41 | MHC.PT.DC ---
[facility] [place] Office [place] Office [place] Office [address] [phone] F: [phone] F: [phone] F: [phone] F: [phone] Physical Therapy Discharge Report Diagnosis: cervicalgia Date of Surgery: Date of Evaluation: 12/23/22 Date of Discharge: 02/03/23 Treatments to Date: 10 Cancellations to Date: 2 No Shows to Date: 0 Discharge Status: Achieved Goals Improved Function Independent with HEP Discharge Summary: Pt appropriate for d/c secondary to improved function, decreased pain, and I with HEP. Electronically signed by: Viktoriya Sevilla PT Please sign and return to therapist. Thank you for your referral.
== END 2023-02-03 08:41 | disposition home or self-care (01) ==
LOC: HO.PTCHIC 15:00
PROVIDERS: PCP Internal Medicine; Visit Provider Internal Medicine
DX: M54.2 Cervicalgia (principal)
CPT/HCPCS: 97110; 97140; 97161

== ENCOUNTER 2023-04-21 12:53 | Outpatient (REF) | payer BC, SELFPAY ==
--- NOTE | ~2023-04-21 | US_ITS ---
EXAMINATION: US PELVIS COMPLETE CLINICAL INFORMATION: Bleeding with intrauterine device placement COMPARISON: Pelvic ultrasound 07/06/2022 TECHNIQUE: Transabdominal and transvaginal imaging was performed. FINDINGS: The uterus is of normal size though slightly heterogeneous in echotexture measuring 9.9 x 5.3 x 5.1 cm. A regular homogeneous endometrium is identified measuring 0.5 cm. Nabothian cysts in the cervix. Intrauterine device in place. A 2.1 cm posterior body subserosal myoma new from prior and a 2.3 cm anterior body subserosal myoma increased from prior previously 1.5 cm. Both ovaries are of normal size and echogenicity. The right measures 2.9 x 1.7 x 1.7 cm for a volume of 4.3 mL. The left measures 2.5 x 1.9 x 2.4 cm for a volume of 5.8 mL. There is no pelvic free fluid. US/US pelvic and transvaginal IMPRESSION: 1. Intrauterine device in place. 2. There are 2 subserosal myomas one new from prior and one increased from prior measuring up to 2.3 cm. Uterus is slightly heterogeneous echotexture, nonspecific however if any clinical concern for adenomyosis and MR pelvis could be obtained. 3. Unremarkable sonographic appearance of the ovaries.
== END 2023-04-21 12:54 | disposition home or self-care (01) ==
LOC: HO.HMGCX 12:53
PROVIDERS: PCP Internal Medicine; Visit Provider Advanced Practice Midwife
DX: Z30.431 Encounter for routine checking of intrauterine contraceptive device (principal); N92.6 Irregular menstruation, unspecified
CPT/HCPCS: 76830; 76856

== ENCOUNTER 2023-05-03 14:52 | Outpatient (AMB) | payer BC, SELFPAY ==
[2023-05-03 14:55] VITALS: BP 134/80; BMI 34.3
--- NOTE | 2023-05-03 14:55 | A.OFFVIS_ITS ---
Intake Vital Signs 05/03/23 14:55 Height 5 ft 4 in Weight 200 lb BMI 34.3 BP 134/80 Intake Visit Reasons: Ultra sound follow up Intake Note: The patient agreed to use of a medical scientific liaison during this encounter. Scribed for MAIA Lund by Sonali Tian medical scientific liaison, on 05/03/2023 Allergies clarithromycin [From Biaxin] Allergy (Mild, Verified 05/03/23 14:55) HIVES HPI HPI Comments History of Present Illness Details She is here to discuss US results due to bleeding with IUD. She is interested in removing IUD today due to brown discharge and spotting for 8 months since insertion. 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 See procedure note. [facility] Medical History Fibroids Neck pain on left side Dyslipidemia Essential hypertension Obesity (BMI 30.0-34.9) Seasonal allergic rhinitis Hemorrhoids PCOS (polycystic ovarian syndrome) Family history of colon cancer in father Family history of thyroid disease in mother History of cholecystitis History of tension headache Surgical History History of hemorrhoidectomy (~07/2021) H/O colonoscopy History of cholecystectomy Hx of section Hx of tubal ligation Family History Father Colon cancer, Onset Age: 44 Substance abuse Mother Oral cancer Thyroid disease Substance abuse Brother Substance abuse Social History Household Members Other:: , kids Housing Other:: mobile home Alcohol intake: never Patient Tobacco Use Status: Never used Tobacco e-Cigarette/Vaping Use: Never Used Current occupational status: employed 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 Cognitive needs: No Hearing needs: No Vision needs: Yes Female Reproductive History Menstrual Age of Menarche: 12 Physical Exam Vital Signs: Last Vital Signs BP 134/80 05/03/23 14:55 BMI result Body Mass Index 34.3 Const General: cooperative, healthy appearing, comfortable, no acute distress, well developed, alert and awake Other: General: Yes bladder normal to palpation External Female Exam: normal external appearance and normal appearance of the urethra Speculum Exam - Vagina: normal appearance of the vagina, normal palpation and normal vaginal discharge Speculum Exam - Cervix: normal appearance of the cervix, normal palpation and Other cervical findings present (IUD strings visible) Bimanual exam- vagina & uterus: normal bimanual exam, normal palpation, bladder normal to palpation and normal palpation Bimanual Exam- Adnexa, other: normal adnexae and no masses Office Procedures IUD Insert/Removal Details Details: HPI She presents for IUD removal. She is counseled and consented for procedure. She is aware of risks for bleeding, pain, infection, and injury to bowel or bladder. Procedure The patient was placed in the dorsal lithotomy position. A speculum was inserted vaginally, and the cervix and strings were visualized at the os. A ring forcep was utilized, and the patient was asked to give a deep cough while the strings were grasped and gently tugged at the same time, removing the IUD device intact. Minimal bleeding was observed. All of the equipment was removed. The patient tolerated the procedure well and left the office in good condition. IUD successfully removed today. Plan Monitor periods. Warnings reviewed with patient. Instructions given to call if temp >100.4, flu like sx, SOB, fatigue, lightheadedness/dizziness, abd pain, bloating or abd distention, bowel changes including rectal bleeding, bladder changes, foul odor or heavy vaginal bleeding. Call office with any questions or concerns. [id number] Removal Procedure code (CPT) selection complete Results Reviewed Results Reviewed: EXAMINATION: US PELVIS COMPLETE CLINICAL INFORMATION: Bleeding with intrauterine device placement COMPARISON: Pelvic ultrasound 07/06/2022 TECHNIQUE: Transabdominal and transvaginal imaging was performed. FINDINGS: The uterus is of normal size though slightly heterogeneous in echotexture measuring 9.9 x 5.3 x 5.1 cm. A regular homogeneous endometrium is identified measuring 0.5 cm. Nabothian cysts in the cervix. Intrauterine device in place. A 2.1 cm posterior body subserosal myoma new from prior and a 2.3 cm anterior body subserosal myoma increased from prior previously 1.5 cm. Both ovaries are of normal size and echogenicity. The right measures 2.9 x 1.7 x 1.7 cm for a volume of 4.3 mL. The left measures 2.5 x 1.9 x 2.4 cm for a volume of 5.8 mL. There is no pelvic free fluid. US/US pelvic and transvaginal IMPRESSION: 1. Intrauterine device in place. 2. There are 2 subserosal myomas one new from prior and one increased from prior measuring up to 2.3 cm. Uterus is slightly heterogeneous echotexture, nonspecific however if any clinical concern for adenomyosis and MR pelvis could be obtained. 3. Unremarkable sonographic appearance of the ovaries. Assessment & Plan Assessment & Plan (1) Encounter to discuss test results: Code(s): Z71.2 - Person consulting for explanation of examination or test findings Plan: Discussed: US findings of: 1. Intrauterine device in place. 2. There are 2 subserosal myomas one new from prior and one increased from prior measuring up to 2.3 cm. Uterus is slightly heterogeneous echotexture, nonspecific however if any clinical concern for adenomyosis and MR pelvis could be obtained. 3. Unremarkable sonographic appearance of the ovaries. Follow up with MD for ablation consult. All of her questions and concerns were addressed to the best of my ability and shared decision making. She is agreeable to plan of care. (2) Fibroids: Code(s): D21.9 - Benign neoplasm of connective and other soft tissue, unspecified (3) Encounter for IUD removal: Code(s): Z30.432 - Encounter for removal of intrauterine contraceptive device Plan: See procedure note. Coding Level of Care Code Procedure Only Diagnoses Encounter to discuss test results Z71.2 Fibroids D21.9 Encounter for IUD removal Z30.432 CPT Codes Details - CPT: 26824-DAU Removal ([id number])
== END 2023-05-03 16:02 | disposition home or self-care (01) ==
PROVIDERS: PCP Internal Medicine; Visit Provider Advanced Practice Midwife
DX: Z30.432 Encounter for removal of intrauterine contraceptive device (principal); Z71.2 Person consulting for explanation of examination or test findings; D21.9 Benign neoplasm of connective and other soft tissue, unspecified
CPT/HCPCS: 58301

== ENCOUNTER → 2023-05-03 14:52 | Outpatient (BNVA) | payer BC, SELFPAY | PROVIDERS: PCP Internal Medicine; Visit Provider Advanced Practice Midwife | DX: Z30.432 Encounter for removal of intrauterine contraceptive device (principal) | CPT/HCPCS: 58301 ==

== ENCOUNTER 2023-06-19 07:51 | Outpatient (AMB) | payer BC, SELFPAY ==
--- NOTE | 2023-06-19 08:01 | A.OFFVIS_ITS ---
Intake Vital Signs 06/19/23 08:02 Height 5 ft 4 in Weight 198 lb 6.656 oz BMI 34.1 BP 120/72 Intake Visit Reasons: Ablation Consult/Per Haley Finishing Trimmer Required: No Information Interpreted: non-clinical & clinical Accompanied by: Spouse Allergies clarithromycin [From Biaxin] Allergy (Mild, Verified 06/19/23 08:03) HIVES HPI HPI Comments History of Present Illness Details Presenting referred from Haley Ying CNM regarding abnormal uterine bleeding in myoma for discussion of options of treatment. The following workup was done so far: 08/29 H&H 13.3/39.9 06/28 TSH and GC and chlamydia negative 07/28 endometrial biopsy showed prolifer ative endometrium with no evidence of endometrial hyperplasia and/or malignancy 12/27 mammogram BI-RADS 1 06/28 co testing negative 04/29 pelvic ultrasound showed the follow ing: The uterus is of normal size though slightly heterogeneous in echotexture measuring 9.9 x 5.3 x 5.1 cm. A regular homogeneous endometrium is identified measuring 0.5 cm. Nabothian cysts in the cervix. Intrauterine device in place. A 2.1 cm posterior body subserosal myoma new from prior and a 2.3 cm anterior body subserosal myoma increased from prior previously 1.5 cm. Both ovaries are of normal size and echogenicity. The right measures 2.9 x 1.7 x 1.7 cm for a volume of 4.3 m L. The left measures 2.5 x 1.9 x 2.4 cm for a volume of 5.8 mL. There is no pelvic free fluid. The patient had Mirena IUD inserted for around 9 months and continuously had pelvic cramping and bleeding so IUD was removed in 04/29 [facility] Medical History Fibroids Neck pain on left side Dyslipidemia Essential hypertension Obesity (BMI 30.0-34.9) Seasonal allergic rhinitis Hemorrhoids PCOS (polycystic ovarian syndrome) Family history of colon cancer in father Family history of thyroid disease in mother History of cholecystitis History of tension headache Surgical History History of hemorrhoidectomy (~07/2021) H/O colonoscopy History of cholecystectomy Hx of section Hx of tubal ligation Family History Father Colon cancer, Onset Age: 44 Substance abuse Mother Oral cancer Thyroid disease Substance abuse Brother Substance abuse Social History Household Members Other:: , kids Housing Other:: mobile home Alcohol intake: never Patient Tobacco Use Status: Never used Tobacco e-Cigarette/Vaping Use: Never Used Current occupational status: employed 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 Cognitive needs: No Hearing needs: No Vision needs: Yes Female Reproductive History Menstrual Age of Menarche: 12 Review of Systems Const All systems reviewed & are unremarkable except as noted in HPI and below Reports as per HPI and Reports no additional complaints GI Reports no additional complaints Reports no additional complaints Physical Exam Vital Signs: Last Vital Signs BP 120/72 06/19/23 08:02 BMI result Body Mass Index 34.1 Assessment & Plan Assessment & Plan (1) Fibroids: Code(s): D21.9 - Benign neoplasm of connective and other soft tissue, unspecified Plan: Discussed with the patient the findings on pelvic ultrasound & the risk of myosarcoma; discussed with the patient the options of treatment including expectant management versus hysterectomy; the pros and cons, risks benefits of each approach were discussed with the patient including the fact that in cases of myosarcoma, surgical treatment can lead to early diagnosis and positively affects the prognosis; after further discussion, the patient decided to proceed with expectant management. Will repeat pelvic ultrasound periodically. Instructions given to patient to call in case any of the following occurs: pressure symptoms, abnormal uterine bleeding, pelvic pain; and to schedule a future office follow-up appointment for reassessment and to order a repeat ultrasound . All questions answered, the patient verbalized understanding and agreed with the plan . (2) Abnormal uterine bleeding (AUB): Code(s): N93.9 - Abnormal uterine and vaginal bleeding, unspecified Plan: Co testing up-to-date, GC and chlamydia taken CBC, TSH, HCG, and pelvic ultrasound done over the last few months. Discussed with the patient the different causes of abnormal bleeding including thyroid disorders, uterine and ovarian pathology, endometrial hyperplasia, carcinoma and other potential causes. Discussed with the patient the results of the work up done, repeat CBC order FSH/LH and schedule endometrial biopsy to r/o endometrial pathology. All questions answered and the patient verbalized understanding. Instructed the patient to schedule an appointment for an endometrial biopsy in 2 weeks. Orders: Orders Lutenizing Hormone Today N93.9 - Abnormal uterine and vaginal bleeding, unspecified Follicle Stimulating Hormone Today N93.9 - Abnormal uterine and vaginal bleeding, unspecified Complete Blood Count no Diff Today N93.9 - Abnormal uterine and vaginal bleeding, unspecified Coding Level of Care Code Est Pt Level 3 (11106) Diagnoses Fibroids D21.9 Abnormal uterine bleeding (AUB) N93.9
[2023-06-19 08:02] VITALS: BP 120/72; BMI 34.1
== END 2023-06-19 08:30 | disposition home or self-care (01) ==
PROVIDERS: PCP Internal Medicine; Visit Provider Obstetrics & Gynecology
DX: D21.9 Benign neoplasm of connective and other soft tissue, unspecified (principal); N93.9 Abnormal uterine and vaginal bleeding, unspecified
CPT/HCPCS: 99213

== ENCOUNTER → 2023-06-19 07:51 | Outpatient (BNVA) | payer BC, SELFPAY | PROVIDERS: PCP Internal Medicine; Visit Provider Obstetrics & Gynecology ==

== ENCOUNTER 2023-06-26 08:03 | Outpatient (REF) | payer BC, SELFPAY ==
[2023-06-26 11:41] LABS: Hemoglobin 13.7 g/dl (12.0-16.0); Mean Corpuscular HGB Conc 32.6 g/dl (31.0-35.0); Mean Corpuscular Hemoglobin 30.6 pg (27.0-33.0); Mean Platelet Volume 10.7 fL (9.4-12.3); Platelet Count 218 X10*3/uL (160-400); Red Blood Count 4.47 X10*6/uL (4.20-5.50); Red Cell Distribution Width 13.5 % (11.0-16.0); White Blood Count 6.7 X10*3/uL (4.8-10.8)
[2023-06-27 07:29] LABS: Follicle Stimulating Hormone 7.8 mIU/mL; Lutenizing Hormone 24.3 mIU/mL
== END 2023-06-26 08:04 | disposition home or self-care (01) ==
LOC: HO.HMGCLDS 08:03
PROVIDERS: PCP Internal Medicine; Visit Provider Obstetrics & Gynecology
DX: N93.9 Abnormal uterine and vaginal bleeding, unspecified (principal)
CPT/HCPCS: 36415; 83001; 83002; 85027

== ENCOUNTER 2023-07-05 07:46 | Outpatient (AMB) | payer BC, SELFPAY ==
--- NOTE | 2023-07-05 07:51 | MHC.OFFVIS ---
Intake Vital Signs 07/05/23 07:54 Height 5 ft 4 in Weight 198 lb 6.656 oz BMI 34.1 BP 110/72 Intake Visit Reasons: EMB Allergies clarithromycin [From Biaxin] Allergy (Mild, Verified 07/04/23 00:30) HIVES [facility] Medical History Fibroids Neck pain on left side Dyslipidemia Essential hypertension Obesity (BMI 30.0-34.9) Seasonal allergic rhinitis Hemorrhoids PCOS (polycystic ovarian syndrome) Family history of colon cancer in father Family history of thyroid disease in mother History of cholecystitis History of tension headache Surgical History History of hemorrhoidectomy (~07/2021) H/O colonoscopy History of cholecystectomy Hx of section Hx of tubal ligation Family History Father Colon cancer, Onset Age: 44 Substance abuse Mother Oral cancer Thyroid disease Substance abuse Brother Substance abuse Social History Household Members Other:: , kids Housing Other:: mobile home Alcohol intake: never Patient Tobacco Use Status: Never used Tobacco e-Cigarette/Vaping Use: Never Used Current occupational status: employed 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 hysteroscopy D&C) & the risks were discussed with the patient including but not limited: pain, uterine perforation, bleeding, infection, possible injury to bladder, bowel, ureter, possible need for blood transfusion with all its possible risks. The patient verbalized understanding all questions answered and signed consent. UPT done in the office was negative The patient was placed into the dorsal lithotomy position; a speculum was inserted in the vagina. Using aseptic technique for the procedure, the cervix was cleansed with Betadine. The anterior lip of the cervix was grasped with a single tooth tenaculum. The uterus was sounded to 7 cm with a 4 mm Pipelle was used. Tissues samples were obtained and placed in formalin, in a patient labeled container and sent to the pathology department. At the end of the procedure, there was minimal bleeding noted The patient tolerated the procedure well and was discharged in good condition with the following instructions: Nothing in the vagina until the bleeding stops. No sex until the bleeding stops, to call if any of the following occurs: fever (>100.4), flu-like symptoms, abdominal pain, heavy bleeding, four smelling vaginal discharge. The patient was instructed to schedule a Follow up appointment in 2 weeks to discuss pathology results of the biopsy and treatment options. This note was generated with a voice recognition program. Some errors may have been overlooked during the review of this note. Sometimes these errors may affect the content or meaning of a given sentence. [id number] Biopsy Results AMB Test Urine AMB Test Urine Negative Last Edit by Natasha Ayala CMA on 07/05/23 08:00 Assessment & Plan Assessment & Plan Orders: Orders AMB HCG Urine Test Today Z32.02 - Encounter for test, result negative AMB Endometrial Biopsy Today N93.9 - Abnormal uterine and vaginal bleeding, unspecified Coding Level of Care Code Procedure Only CPT Codes Endometrial Biopsy - CPT: 66161-Pkaotytlngz Biopsy ([id number])
[2023-07-05 07:54] VITALS: BP 110/72; BMI 34.1
== END 2023-07-05 08:11 | disposition home or self-care (01) ==
PROVIDERS: PCP Internal Medicine; Visit Provider Obstetrics & Gynecology
DX: N93.9 Abnormal uterine and vaginal bleeding, unspecified (principal); Z32.02 Encounter for pregnancy test, result negative
CPT/HCPCS: 58100

== ENCOUNTER 2023-07-05 07:46 | Outpatient (REF) | payer BC, SELFPAY | END 2023-07-05 07:47 | disposition home or self-care (01) | LOC: HO.LNP 07:46 | PROVIDERS: PCP Internal Medicine; Visit Provider Obstetrics & Gynecology | DX: Z32.02 Encounter for pregnancy test, result negative (principal); N93.9 Abnormal uterine and vaginal bleeding, unspecified | CPT/HCPCS: 58100; 81025; 88305 ==

== ENCOUNTER 2023-08-10 11:58 | Outpatient (AMB) | payer BC, SELFPAY ==
[2023-08-10 12:02] VITALS: BP 120/84
--- NOTE | 2023-08-10 12:02 | MHC.OFFVIS ---
Intake Vital Signs 08/10/23 12:02 Height 5 ft 4 in BP 120/84 Intake Visit Reasons: EMB Results Allergies clarithromycin [From Biaxin] Allergy (Mild, Verified 08/10/23 12:05) HIVES Is last menstrual period known: Yes Last menstrual period: 07/13/23 HPI HPI Comments History of Present Illness Details The patient is presenting for follow-up to discuss the results of her abnormal uterine bleeding workup and options of treatment. The following workup was done.: H&H= 13.7/42 GC and chlamydia were negative. FSH in the premenopausal range, LH 24.3 in the menopausal range Endometrial biopsy pathology showed inactive endometrium with no evidence of hyperplasia and/or malignancy. Co testing was done in 06/28 was negative. Mammogram was done in 12/27 was BI-RADS 1. Pelvic ultrasound showed the following: The uterus is of normal size though slightly heterogeneous in echotexture measuring 9.9 x 5.3 x 5.1 cm. A regular homogeneous endometrium is identified measuring 0.5 cm. Nabothian cysts in the cervix. Intrauterine device in place. A 2.1 cm posterior body subserosal myoma new from prior and a 2.3 cm anterior body subserosal myoma increased from prior previously 1.5 cm. Both ovaries are of normal size and echogenicity. The right measures 2.9 x 1.7 x 1.7 cm for a volume of 4.3 mL. The left measures 2.5 x 1.9 x 2.4 cm for a volume of 5.8 mL. There is no pelvic free fluid. The patient had IUD removed after the pelvic ultrasound done in 04/29 [facility] Medical History Fibroids Neck pain on left side Dyslipidemia Essential hypertension Obesity (BMI 30.0-34.9) Seasonal allergic rhinitis Hemorrhoids PCOS (polycystic ovarian syndrome) Family history of colon cancer in father Family history of thyroid disease in mother History of cholecystitis History of tension headache Surgical History History of hemorrhoidectomy (~07/2021) H/O colonoscopy History of cholecystectomy Hx of section Hx of tubal ligation Family History Father Colon cancer, Onset Age: 44 Substance abuse Mother Oral cancer Thyroid disease Substance abuse Brother Substance abuse Social History Household Members Other:: , kids Housing Other:: mobile home Alcohol intake: never Patient Tobacco Use Status: Never used Tobacco e-Cigarette/Vaping Use: Never Used Current occupational status: employed Current occupation: [employer] Cognitive needs: No Hearing needs: No Vision needs: Yes Female Reproductive History Menstrual Age of Menarche: 12 Date of last menstrual period: 07/13/23 Review of Systems Const All systems reviewed & are unremarkable except as noted in HPI and below Reports as per HPI and Reports no additional complaints GI Reports no additional complaints Reports no additional complaints Physical Exam Vital Signs: Last Vital Signs BP 120/84 08/10/23 12:02 Assessment & Plan Assessment & Plan (1) Abnormal uterine bleeding (AUB): Comment: Arlen menopausal Code(s): N93.9 - Abnormal uterine and vaginal bleeding, unspecified Plan: Discussed with the patient the results of the work up done and options of treatment including but not limited to BCP's, cyclic Progesterone, Mirena IUD, endometrial ablation and hysterectomy. All pros, cons, risks and benefits of each option were discussed with the patient and the patient decided to go ahead with cyclic Provera, so a more detailed discussion re: Progesterone treatment including mechanism of action, benefits (regular menses, endometrial protection form unopposed estrogen and reduction in the risk of endometrial hyperplasia and/or cancer ...), risks (Thrombosis, mood changes, weight gain, breast soreness, ? increased breast ca, others). Instructions were given to take the medication 1 tablet daily starting day 15-24 and to schedule a 3 months follow-up appointment; patient verbalized understanding and agreed with the plan. (2) Fibroids: Code(s): D21.9 - Benign neoplasm of connective and other soft tissue, unspecified Plan: Discussed with the patient the findings on pelvic ultrasound & the risk of myosarcoma; Will repeat pelvic ultrasound periodically. All questions answered, the patient verbalized understanding and agreed with the plan . Medications: New medroxyprogesterone (Provera) start Provera 1 tablet daily from day 15-24 cyclically every months, day 1 being 1st day of menses 10 mg PO DAILY 30 tabs 3RF 10 days Coding Level of Care Code Est Pt Level 3 (51078) Diagnoses Abnormal uterine bleeding (AUB) N93.9 Fibroids D21.9
== END 2023-08-10 12:21 | disposition home or self-care (01) ==
LOC: HO.HWS 11:58
PROVIDERS: PCP Internal Medicine; Visit Provider Obstetrics & Gynecology
DX: N93.9 Abnormal uterine and vaginal bleeding, unspecified (principal); D21.9 Benign neoplasm of connective and other soft tissue, unspecified
CPT/HCPCS: 99213

== ENCOUNTER → 2023-08-10 11:58 | Outpatient (BNVA) | payer BC, SELFPAY | PROVIDERS: PCP Internal Medicine; Visit Provider Obstetrics & Gynecology ==

== ENCOUNTER 2023-10-10 14:03 | Outpatient (AMB) | payer BC, SELFPAY ==
--- NOTE | 2023-10-10 14:05 | MHC.OFFVIS ---
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 She is doing well with no concerns. Reports feeling much better after removing her Mirena IUD . And is taking Provera for the heavy menses. Last dose taken 09/20, and did not have a bleed yet. Not eating healthy a diet, no regular exercise. Currently sexually active. Denies any vaginal dryness or irritation. Last pap smear; 06/2022. Last mammogram; 12/2022. Colonoscopy is UTD. Denies any family history of breast or ovarian cancer, FH colon cancer, father. Pt. is BRCA neg. [facility] Medical History Fibroids Neck pain on left side Dyslipidemia Essential hypertension Obesity (BMI 30.0-34.9) Seasonal allergic rhinitis Hemorrhoids PCOS (polycystic ovarian syndrome) Family history of colon cancer in father Family history of thyroid disease in mother History of cholecystitis History of tension headache Surgical History History of hemorrhoidectomy (~07/2021) H/O colonoscopy History of cholecystectomy Hx of section Hx of tubal ligation Family History Father Colon cancer, Onset Age: 44 Substance abuse Mother Oral cancer Thyroid disease Substance abuse Brother Substance abuse Social History Household Members Other:: , kids Housing Other:: mobile home Alcohol intake: never Patient Tobacco Use Status: Never used Tobacco e-Cigarette/Vaping Use: Never Used Current occupational status: employed 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 Cognitive needs: No Hearing needs: No Vision needs: Yes Female Reproductive History Menstrual Age of Menarche: 12 Date of last menstrual period: 08/11/23 control method: permanent sterilization Permanent Sterilization: BTL Total pregnancies: 1 Full term: 1 Number of Living Children: 1 Date of last pap smear: 06/10/22 (neg pap and hpv) Date of Mammogram: 12/20/22 (Birad 1) Review of Systems Const All systems reviewed & are unremarkable except as noted in HPI and below Reports as per HPI Eyes Reports no additional complaints ENT Reports no additional complaints Card Reports no additional complaints Resp Reports no additional complaints GI Reports as per HPI and Reports no additional complaints Reports as per HPI Musc Reports no additional complaints Skin/Breast Reports as per HPI Neuro Reports no additional complaints Psych Reports no additional complaints Endo Reports no additional complaints Alex/Lymph Reports no additional complaints Aller/Immun Reports no additional complaints Physical Exam Vital Signs: Last Vital Signs BP 122/84 10/10/23 14:06 BMI result Body Mass Index 35.0 Const General: cooperative, healthy appearing, no acute distress, well developed and alert Orientation/consciousness: patient oriented x3 HEENT Head: Yes normal to inspection Eyes General: appearance normal, both eyes and all related structures Neck Neck: Yes normal visual inspection Thyroid: Thyroid normal Chest Chest palpation & inspection: normal inspection of the chest and other (no puckering, dimpling, peau de orange, retraction, discharge, masses) Breast/axilla inspection: normal inspection of the breasts Breast/axilla palpation: normal palpation of the breasts Resp Effort & Inspection: normal respiratory effort GI Inspection: Yes normal to inspection Palpation (GI): Soft to palpation Rectal Exam - Female: deferred General: Yes bladder normal to palpation External Female Exam: normal external appearance and normal appearance of the urethra Speculum Exam - Vagina: normal appearance of the vagina, normal palpation, normal vaginal discharge and vaginal bleeding (Small amount of blood at the cervical os) Speculum Exam - Cervix: normal appearance of the cervix and normal palpation Bimanual exam- vagina & uterus: normal bimanual exam, normal palpation, uterine size normal, bladder normal to palpation, normal palpation and non-tender Bimanual Exam- Adnexa, other: no masses OB/external & speculum: vaginal bleeding (Small amount of blood at the cervical os) Skin General skin exam: no rashes or lesions noted Rashes: no rashes Neuro General: patient oriented x3 Cognition (Neuro): normal cognition Extrem General: Yes normal to inspection Psych Attitude: cooperative Thought process: Normal thought process present Assessment & Plan Assessment & Plan (1) Encounter for well woman exam with routine gynecological exam: Code(s): Z01.419 - Encounter for gynecological examination (general) (routine) without abnormal findings Plan Discussed: Current recommendations for pap smears per ASCCP guidelines. Breast awareness, periodic self breast exams and yearly mammogram. Maintain a healthy lifestyle, well balanced diet, and routine exercise. Most likely due to the bled at the cervical exam today is going to start another cycle, she can start her Provera again for 10 days once her bleeding starts. Continue to use the Provera on day 1 of her cycle for 10 days for AUB. Most likely she is heading closer towards menopause, observe for bleeding patterns if anything unusual to call the office. She is enough refills for several months. Advised to make a follow up with Dr. Simeon in 2-3 months. Patient verbalizes understanding and agrees to the plan of care. She was given opportunity to ask questions and all questions were answered to the best of my ability. 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 This note is constructed using voice recognition software. While every effort has been made to ensure accuracy, personal secretary errors may have been included. Coding Level of Care Code Est Pt Prev Care 40-64y(62249) Diagnoses Encounter for well woman exam with routine gynecological exam Z01.419
[2023-10-10 14:06] VITALS: BP 122/84; BMI 35.0
== END 2023-10-10 14:54 | disposition home or self-care (01) ==
PROVIDERS: PCP Internal Medicine; Visit Provider Advanced Practice Midwife
DX: Z01.419 Encounter for gynecological examination (general) (routine) without abnormal findings (principal)
CPT/HCPCS: 99396

== ENCOUNTER → 2023-10-10 14:03 | Outpatient (BNVA) | payer BC, SELFPAY | PROVIDERS: PCP Internal Medicine; Visit Provider Advanced Practice Midwife ==

== ENCOUNTER 2023-12-08 07:50 | Outpatient (AMB) | payer BC, SELFPAY ==
--- NOTE | 2023-12-08 07:52 | MHC.PC.OV ---
Vital Signs 12/08/23 07:54 Height 5 ft 4 in Weight 200 lb BMI 34.3 BP 120/84 Blood Pressure Location Lt brachial Position Sitting Pulse 78 Pulse Source Pulse Oximeter Pulse Oximetry (%) 98 Oxygen Delivery Method Room Air Intake Visit Reasons: PE Intake Note: Patient here for physical exam. Allergies clarithromycin [From Biaxin] Allergy (Mild, Verified 12/08/23 08:15) HIVES Medication List - Last Reconciled 12/08/23 by Deidre Foster MD cetirizine (Zyrtec) 10 mg PO DAILY PRN ibuprofen 200 mg PO Q6H PRN losartan 50 mg PO DAILY Tobacco use date assessed: 12/08/23 Dental Screening Dental Screen Date: 12/08/23 Did you have a dental visit in the last 12 months?: Yes Did you have a dental problem in the last 6 months where you did not have access to dental care?: No Was dental information given to patient?: Patient has dentist HPI PE HPI Details 48 year old lady, obesity, seasonal allergies, here today for physical exam. She is up-to-date with her screening mammogram already has an appointment scheduled for repeat this month. She sees Dr. Simeon for her routine Pap and pelvic exam, currently has been having irregular menstrual cycles. She is up-to-date with her screening colonoscopy, due again in 2025 due to positive family history for colon cancer. 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 Blood pressure stable and controlled on losartan. [facility] Medical History (Updated 12/08/23 @ 08:40 by Deidre Foster MD) Fibroids Neck pain on left side Dyslipidemia Essential hypertension Obesity (BMI 30.0-34.9) Seasonal allergic rhinitis Hemorrhoids PCOS (polycystic ovarian syndrome) Family history of colon cancer in father Family history of thyroid disease in mother History of cholecystitis History of tension headache Surgical History History of hemorrhoidectomy (~07/2021) H/O colonoscopy History of cholecystectomy Hx of section Hx of tubal ligation Family History Father Colon cancer, Onset Age: 44 Substance abuse Mother Oral cancer Thyroid disease Substance abuse Brother Substance abuse Social History Household Members Other:: , kids Housing Other:: mobile home Alcohol intake: never Patient Tobacco Use Status: Never used Tobacco e-Cigarette/Vaping Use: Never Used Current occupational status: employed 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 1. Little interest or pleasure in doing things: not at all 2. Feeling down, depressed, or hopeless: not at all 3. Trouble falling or staying asleep, or sleeping too much: more than half the days 4. Feeling tired or having little energy: several days 5. Poor appetite or overeating: not at all 6. Feeling bad about yourself - or that you are a failure or have let yourself or your family down: not at all 7. Trouble concentrating on things, such as reading the newspaper or watching television: not at all 8. Moving or speaking so slowly that other people could have noticed. Or the opposite - being so fidgety or restless that you have been moving around a lot more than usual: not at all 9. Thoughts that you would be better off or of hurting yourself in some way: not at all Total score: 3 Depression Screening Interpretation: Negative Depression Screening Done: Yes Source: Developed by Drs. Leonel Ely, Lesia Saenz, Luis F Pulido and colleagues, with an educational rebecca from [employer]. Thrive Questionnaire Date Thrive assessed: 12/08/23 I am a: Patient What is your living situation today?: I have a steady place to live Within the past 12 months, did the food you bought not last and you didn't have the money to get more?: Never true Within the past 12 months, did you worry whether your food would run out before you got money to buy more?: Never true Do you have trouble paying for medicines?: No Do you have trouble getting transportation to medical appointments?: No Do you have trouble paying your heating and electricity bill?: No Do you have trouble taking care of your child, family member or friend?: No Do you have trouble with day-to-day activities such as bathing, preparing meals, shopping, managing finances, etc.?: No Are you currently unemployed and looking for a job?: No Are you interested in more education?: No Currently or been in a relationship where the following occur: I choose not to answer this question THRIVE Score: 0 AUDIT C Alcohol Use Questionnaire (AUDIT-C) 1. How often do you have a drink containing alcohol?: Monthly or less 2. How many drinks containing alcohol do you have on a typical day when you are drinking?: 1 or 2 3. How often do you have six or more drinks on one occasion?: Never Total Score: 1 Score Reviewed/Action Taken: No KEN-7 AMB Questionnaire KEN-7 Date KEN - 7 assessed: 12/08/23 Feeling nervous, anxious, or on edge: 0 = Not at all Not being able to stop or control worryin = Not at all Worrying too much about different things: 0 = Not at all Trouble relaxin = Not at all Being so restless that it is hard to sit still: 0 = Not at all Becoming easily annoyed or irritable: 0 = Not at all Feeling afraid as if something awful might happen: 0 = Not at all Total KEN-7 score (0-4 normal; 5-9 mild; 10-14 moderate; 15-21 severe): 0 Source: Developed by Drs. Leonel Ely, Lesia Saenz, Luis F Pulido and colleagues, with an educational rebecca from [employer]. KEN-7 Assessment Billing KEN-7 Assessment Tool: KEN-7 Assessment 81204 Review of Systems Const Reports as per HPI Eyes Details: Goes to [facility] for her routine eye exams Reports requires corrective lenses ENT Reports no additional complaints Card Denies chest pain, Denies irregular heart rhythm, Denies lightheadedness and Denies dyspnea Resp Denies cough and Denies dyspnea GI Reports no additional complaints Reports as per HPI Musc Reports no additional complaints Skin/Breast Denies breast skin changes, Denies breast pain, Denies breast mass and Denies rash Neuro Reports no additional complaints Psych Reports no additional complaints Endo Reports no additional complaints Alex/Lymph Reports no additional complaints Aller/Immun Reports seasonal rhinorrhea Physical exam (Primary Care) Vital Signs: Last Vital Signs Pulse 78 12/08/23 07:54 BP 120/84 12/08/23 07:54 Pulse Ox 98 12/08/23 07:54 Oxygen Delivery Method Room Air 12/08/23 07:54 BMI result Body Mass Index 34.3 Tobacco/Smoking Status: Tobacco use Status Tobacco use date assessed 12/08/23 12/08/23 07:57 Patient Tobacco Use Status Never used Tobacco 12/08/23 07:53 e-Cigarette/Vaping Use Never Used 12/08/23 07:53 Depression Screening Interpretation: Negative Thrive Assessment: Date of Thrive Assessment Date Thrive assessed 11/30/22 12/08/23 07:53 Currently or been in a relationship where the following occur: I choose not to answer this question Const Other: Alert oriented x3, no acute distress noted ambulatory normal gait Nutritional Appearance: obese Orientation/consciousness: patient oriented x3 HENMT Ears: hearing grossly normal bilaterally General nose exam: Normal external nose present Face and sinus: Yes face symmetric Mouth: Normal oral and palatal mucosa present, oropharynx normal and moist mucous membranes Eyes General: appearance normal, both eyes and all related structures Neck Neck: Yes full ROM, Yes no lymphadenopathy and Yes supple Chest Breast/axilla palpation: normal palpation of the breasts Resp Effort & Inspection: normal respiratory effort and able to speak in complete sentences Auscultation: clear to auscultation bilaterally Cardio Other: S1-S2 present regular rate rhythm no murmurs GI Inspection: Yes normal to inspection Palpation (GI): Soft to palpation, nontender, no guarding and no masses Auscultation: normal bowel sounds General: Yes no CVA tenderness and Yes other (Sees OB for routine Pap and pelvic exam) Back/Spine/Pelvis Back: no CVA tenderness and No back tenderness Skin Lesions: no lesions Rashes: no rashes Neuro General: patient oriented x3, gait normal, tone normal, moves all extremities, no focal motor deficits and CN's II-XI intact bilaterally Extrem General: Yes full ROM, Yes no joint enlargement, Yes no pedal edema and Yes normal gait Psych Appearance: grossly normal and well kempt Mental Status: mental status grossly normal Speech and movement: Normal speech and movement present Affect: normal affect Assessment and Plan Assessment & Plan (1) Annual visit for general adult medical examination with abnormal findings: Code(s): Z00.01 - Encounter for general adult medical examination with abnormal findings Plan: Will check appropriate labs. Continue with regular dental visit every 6 months and regular eye exams, at least every 2 years, goes to [facility]. Take adequate calcium in diet and vitamin-D 3 at 2000 IU per cap once a day, in addition to weight-bearing exercises to help maintain good muscle tone and weight control. Instructed to do self-breast exam, and continue with yearly mammogram, has an appointment already for her routine mammogram this month scheduled. She sees Dr. Simeon for her routine Pap and pelvic exam. Up-to-date with all her vaccines, up-to-date with her screening colonoscopy due again in 2025 (2) Seasonal allergic rhinitis: Code(s): J30.2 - Other seasonal allergic rhinitis Qualifiers: Allergic rhinitis trigger: unspecified Qualified Code(s): J30.2 - Other seasonal allergic rhinitis Plan: Currently takes Zyrtec as needed (3) Obesity (BMI 30.0-34.9): Code(s): E66.9 - Obesity, unspecified Plan: Recommended focusing on improving your health instead of dieting. : Eat Mediterranean diet, limit foods high in fat, sugar, and calories, eat slowly, pay attention to portion sizes, plan your meals ahead of time, start regular physical activity 150 minutes of moderate intensity exercise or 90 minutes/week of vigorous exercise (4) Essential hypertension: Code(s): I10 - Essential (primary) hypertension Plan: Blood pressure at goal of less than 130/80. Continue with current medication. Reinforced importance of following a low sodium diet, getting regular exercise, and lowering stress levels. (5) Dyslipidemia: Code(s): E78.5 - Hyperlipidemia, unspecified Plan: Fasting lipid panel ordered, reinforced importance of following a low-cholesterol diet getting regular exercise Orders: Orders Vitamin D 25-OH Total Today E66.9 - Obesity, unspecified, E78.5 - Hyperlipidemia, unspecified, I10 - Essential (primary) hypertension Alanine Aminotransferase Today E66.9 - Obesity, unspecified, E78.5 - Hyperlipidemia, unspecified, I10 - Essential (primary) hypertension Aspartate Amino Transferase Today E66.9 - Obesity, unspecified, E78.5 - Hyperlipidemia, unspecified, I10 - Essential (primary) hypertension Basic Metabolic Panel Fasting Today E66.9 - Obesity, unspecified, E78.5 - Hyperlipidemia, unspecified, I10 - Essential (primary) hypertension Lipid Panel Today E66.9 - Obesity, unspecified, E78.5 - Hyperlipidemia, unspecified, I10 - Essential (primary) hypertension Coding Level of Care Code Est Pt Prev Care 40-64y(44646) Diagnoses Annual visit for general adult medical examination with abnormal findings Z00.01 Seasonal allergic rhinitis, unspecified trigger J30.2 Allergic rhinitis trigger: unspecified Obesity (BMI 30.0-34.9) E66.9 Essential hypertension I10 Dyslipidemia E78.5 Additional Codes KEN-7 Assessment Billing - KEN-7 Assessment Tool: KEN-7 Assessment 90030 ([id number])
[2023-12-08 07:54] VITALS: BP 120/84; PULSE 78; O2SAT 98; BMI 34.3
== END 2023-12-08 08:33 | disposition home or self-care (01) ==
PROVIDERS: Visit Provider Internal Medicine
DX: Z00.00 Encounter for general adult medical examination without abnormal findings (principal); J30.2 Other seasonal allergic rhinitis; Z68.34 Body mass index [BMI] 34.0-34.9, adult; E66.9 Obesity, unspecified; I10 Essential (primary) hypertension; E78.5 Hyperlipidemia, unspecified
CPT/HCPCS: 99396

== ENCOUNTER 2023-12-08 08:34 | Outpatient (REF) | payer BC, SELFPAY ==
[2023-12-08 10:58] LABS: Alanine Aminotransferase 15 U/L (0-31); Anion Gap 12 (12-20); Aspartate Amino Transferase 16 U/L (5-31); Blood Urea Nitrogen 11 mg/dL (9-16); Calcium 9.5 mg/dL (8.4-10.2); Carbon Dioxide 24 mmol/L (22-29); Chloride 107 mmol/L (96-108); Cholesterol 203 mg/dL (<200); Estimated Glomerular Filt Rate > 60; Glucose Fasting 92 mg/dL (60-99); HDL Cholesterol 47 mg/dL (>40); LDL Cholesterol Calculated 140 mg/dL (<100); Potassium 4.3 mmol/L (3.3-5.1); Sodium 139 mmol/L (135-145); Triglycerides 84 mg/dL (<150)
[2023-12-08 11:17] LABS: Vitamin D 25-OH Total 33.6 ng/mL (>30)
== END 2023-12-08 08:35 | disposition home or self-care (01) ==
LOC: HO.HMGCLDS 08:34
PROVIDERS: PCP Internal Medicine; Visit Provider Internal Medicine
DX: E78.5 Hyperlipidemia, unspecified (principal); I10 Essential (primary) hypertension; E66.9 Obesity, unspecified
CPT/HCPCS: 36415; 80048; 80061; 82306; 84450; 84460

== ENCOUNTER 2023-12-26 07:43 | Outpatient (REF) | payer BC, SELFPAY ==
--- NOTE | ~2023-12-26 | MM_ITS ---
EXAMINATION: MM SCREENING DIGITAL BREAST TOMOSYNTHESIS, BILATERAL CLINICAL INFORMATION: Screening. Asymptomatic. COMPARISON: Mammography: 12/20/2022, 12/14/2021; outside mammography 07/05/2019, 01/11/2018, 12/28/2017 ([facility]). TECHNIQUE: Digital breast tomosynthesis is performed in both the craniocaudal and mediolateral oblique views along with computer-aided detection (CAD). Synthesized 2D images are generated from the tomosynthesis. FINDINGS: There are scattered areas of fibroglandular density (ACR BI-RADS breast composition Category b). There are no suspicious masses, suspicious grouped calcifications, or areas of architectural distortion in either breast. The parenchymal pattern is stable from prior exams. No suspicious skin or axillary abnormality. MM/MM tomosynthesis screening BI IMPRESSION: No mammographic evidence of malignancy. Stable examination. ASSESSMENT: BI-RADS BI-RADS 1 - Negative RECOMMENDATION: Routine annual mammography screening. 1 year F/U This examination should not preclude the clinical evaluation of a suspicious palpable abnormality. This patient's information was entered into a reminder system with a target due date for their next mammogram.
== END 2023-12-26 07:44 | disposition home or self-care (01) ==
LOC: HO.MAMMO 07:43
PROVIDERS: PCP Internal Medicine; Visit Provider Internal Medicine
DX: Z12.31 Encounter for screening mammogram for malignant neoplasm of breast (principal)
CPT/HCPCS: 77063; 77067

== ENCOUNTER → 2023-12-26 07:45 | Outpatient (BNV) | payer BC, SELFPAY | PROVIDERS: PCP Internal Medicine; Visit Provider Radiology Diagnostic Radiology | DX: Z12.31 Encounter for screening mammogram for malignant neoplasm of breast (principal) | CPT/HCPCS: 77063; 77067 ==

== ENCOUNTER 2024-01-08 07:32 | Outpatient (AMB) | payer BC, SELFPAY ==
[2024-01-08 07:36] VITALS: BP 124/82; BMI 34.1
--- NOTE | 2024-01-08 07:36 | MHC.OFFVIS ---
Vital Signs 01/08/24 07:36 Height 5 ft 4 in Weight 198 lb 6.656 oz BMI 34.1 BP 124/82 Intake Visit Reasons: AUB follow up Medical Practice Manager Required: No Information Interpreted: non-clinical & clinical Accompanied by: Self / Same As Patient Allergies clarithromycin [From Biaxin] Allergy (Mild, Verified 01/08/24 07:39) HIVES Post menopausal: Yes HPI Comments Details: Presenting for follow-up. The patient had 2 menstrual cycles since July of 2023 after which Provera 10 mg p.o. q.d. day 15-24 was taken. No other symptoms in the pelvic pain, pressure or any other complaints PFSH Medical History Fibroids Neck pain on left side Dyslipidemia Essential hypertension Obesity (BMI 30.0-34.9) Seasonal allergic rhinitis Hemorrhoids PCOS (polycystic ovarian syndrome) Family history of colon cancer in father Family history of thyroid disease in mother History of cholecystitis History of tension headache Surgical History History of hemorrhoidectomy (~07/2021) H/O colonoscopy History of cholecystectomy Hx of section Hx of tubal ligation Family History Father Colon cancer, Onset Age: 44 Substance abuse Mother Oral cancer Thyroid disease Substance abuse Brother Substance abuse Social History Household Members Other:: , kids Housing Other:: mobile home Alcohol intake: never Patient Tobacco Use Status: Never used Tobacco e-Cigarette/Vaping Use: Never Used Current occupational status: employed 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 Cognitive needs: No Hearing needs: No Vision needs: Yes Female Reproductive History Menstrual Age of Menarche: 12 Review of Systems Const All systems reviewed & are unremarkable except as noted in HPI and below Reports as per HPI and Reports no additional complaints GI Reports no additional complaints Reports no additional complaints Physical Exam Vital Signs: Last Vital Signs BP 124/82 01/08/24 07:36 BMI result Body Mass Index 34.1 Assessment & Plan Assessment & Plan (1) Fibroids: Code(s): D21.9 - Benign neoplasm of connective and other soft tissue, unspecified Category: Medical Plan: Ultrasound of the pelvis . Instructions given the patient to schedule ultrasound follow-up appointment. All questions answered, the patient verbalized understanding (2) Abnormal uterine bleeding (AUB): Comment: Arlen menopausal Code(s): N93.9 - Abnormal uterine and vaginal bleeding, unspecified Category: Medical Plan: Recommended repeat EMB to rule out endometrial pathology including endometrial hyperplasia and/or malignancy. Instructions given the patient to schedule a 2 week EMB appointment Orders: Orders US pelvic and transvaginal Today D21.9 - Benign neoplasm of connective and other soft tissue, unspecified Coding Level of Care Code Est Pt Level 3 (65040) Diagnoses Fibroids D21.9 Abnormal uterine bleeding (AUB) N93.9
== END 2024-01-08 07:50 | disposition home or self-care (01) ==
PROVIDERS: PCP Internal Medicine; Visit Provider Obstetrics & Gynecology
DX: D21.9 Benign neoplasm of connective and other soft tissue, unspecified (principal); N93.9 Abnormal uterine and vaginal bleeding, unspecified
CPT/HCPCS: 99213

== ENCOUNTER → 2024-01-08 07:32 | Outpatient (BNVA) | payer BC, SELFPAY | PROVIDERS: PCP Internal Medicine; Visit Provider Obstetrics & Gynecology ==

== ENCOUNTER 2024-01-19 15:22 | Outpatient (REF) | payer BC, SELFPAY ==
--- NOTE | ~2024-01-19 | US_ITS ---
EXAMINATION: US PELVIS CLINICAL INFORMATION: Leiomyomas COMPARISON: Pelvic ultrasound 04/21/2023. TECHNIQUE: Ultrasound of the pelvis is performed using both transabdominal and transvaginal transducers along with Doppler. Transvaginal imaging is performed due to inadequate visualization transabdominally. FINDINGS: Uterus: The uterus is anteverted and measures 9.1 x 5.6 x 5.1 in the sagittal, AP and transverse dimensions. A regular homogeneous endometrium is identified measuring 0.4 cm. The uterine myometrium is heterogeneous with few fibroids. Anterior body subserosal fibroid measures 2.4 x 1.6 x 1.8 cm, previously measuring 2.3 x 1.8 x 1.7 cm. Posterior body subserosal fibroid measures 2.1 x 1.9 x 1.3 cm, previously measuring 2.3 x 1.8 x 2 cm. Another posterior fundus subserosal fibroid is noted measuring 1.8 x 1.4 x 1.3 cm, not visualized on prior exam. Nabothian cysts are seen within the cervix. Both ovaries are visualized on transabdominal imaging.There is normal color flow to the adnexa. Right ovary measures 2.2 x 1.5 x 2.3 with a volume of 4 mL. The left ovary measures 2.6 x 2.2 x 2.1 cm with a volume of 6 mL. No free fluid in the pelvis. US/US pelvic and transvaginal IMPRESSION: 1. Relatively stable size of the anterior and posterior uterine body serosal fibroids as detailed. An additional small posterior fundal subserosal fibroid is noted, not visualized on prior exam. 2. Unremarkable sonographic appearance of bilateral ovaries.
== END 2024-01-19 15:23 | disposition home or self-care (01) ==
LOC: HO.HMGCX 15:22
PROVIDERS: PCP Internal Medicine; Visit Provider Obstetrics & Gynecology
DX: D21.9 Benign neoplasm of connective and other soft tissue, unspecified (principal)
CPT/HCPCS: 76830; 76856

== ENCOUNTER 2024-02-21 08:31 | Outpatient (AMB) | payer BC, SELFPAY ==
[2024-02-21 08:58] VITALS: BP 100/60; BMI 34.0
--- NOTE | 2024-02-21 08:58 | MHC.OFFVIS ---
Vital Signs 02/21/24 08:58 Height 5 ft 4 in Weight 198 lb BMI 34.0 BP 100/60 Intake Visit Reasons: EMB/ U/S results Internal Controls Specialist: Internal Controls Specialist Present (Natasha) Allergies clarithromycin [From Biaxin] Allergy (Mild, Verified 02/21/24 08:58) HIVES HPI Comments Details: Presenting for EMB [facility] Medical History Fibroids Neck pain on left side Dyslipidemia Essential hypertension Obesity (BMI 30.0-34.9) Seasonal allergic rhinitis Hemorrhoids PCOS (polycystic ovarian syndrome) Family history of colon cancer in father Family history of thyroid disease in mother History of cholecystitis History of tension headache Surgical History History of hemorrhoidectomy (~07/2021) H/O colonoscopy History of cholecystectomy Hx of section Hx of tubal ligation Family History Father Colon cancer, Onset Age: 44 Substance abuse Mother Oral cancer Thyroid disease Substance abuse Brother Substance abuse Social History Household Members Other:: , kids Housing Other:: mobile home Alcohol intake: never Patient Tobacco Use Status: Never used Tobacco e-Cigarette/Vaping Use: Never Used Current occupational status: employed Current occupation: [employer] Cognitive needs: No Hearing needs: No Vision needs: Yes Female Reproductive History Menstrual Age of Menarche: 12 Review of Systems Const All systems reviewed & are unremarkable except as noted in HPI and below Reports as per HPI and Reports no additional complaints GI Reports no additional complaints Reports no additional complaints Physical Exam Vital Signs: Last Vital Signs BP 100/60 02/21/24 08:58 BMI result Body Mass Index 34.0 Office Procedures Endometrial Biopsy Details: The patient was counseled regarding the indication and benefits of endometrial sampling to rule out endometrial pathology including not limited to endometrial hyperplasia or endometrial cancer and others; The alternatives (Either do nothing vs. hysteroscopy D&C) & the risks were discussed with the patient including but not limited: pain, uterine perforation, bleeding, infection, possible injury to bladder, bowel, ureter, possible need for blood transfusion with all its possible risks. The patient verbalized understanding all questions answered and signed consent. The patient was placed into the dorsal lithotomy position; a speculum was inserted in the vagina. Using aseptic technique for the procedure, the cervix was cleansed with Betadine. The anterior lip of the cervix was grasped with a single tooth tenaculum. The uterus was sounded to 7 cm with a 4 mm Pipelle was used. Tissues samples were obtained and placed in formalin, in a patient labeled container and sent to the pathology department. At the end of the procedure, there was minimal bleeding noted The patient tolerated the procedure well and was discharged in good condition with the following instructions: Nothing in the vagina until the bleeding stops. No sex until the bleeding stops, to call if any of the following occurs: fever (>100.4), flu-like symptoms, abdominal pain, heavy bleeding, four smelling vaginal discharge. The patient was instructed to schedule a Follow up appointment in 2 weeks to discuss pathology results of the biopsy and treatment options. This note was generated with a voice recognition program. Some errors may have been overlooked during the review of this note. Sometimes these errors may affect the content or meaning of a given sentence. [id number] Biopsy Results AMB Test Urine AMB Test Urine Negative Last Edit by HECTOR Ortiz on 02/21/24 09:02 Results Reviewed Results Reviewed: Laboratory Last Values [facility]st Clinic Negative 02/21/24 09:02 Assessment & Plan Assessment & Plan (1) Abnormal uterine bleeding (AUB): Comment: Arlen menopausal Code(s): N93.9 - Abnormal uterine and vaginal bleeding, unspecified Category: Medical Plan: EMB done, see procedure note Orders: Orders AMB HCG Urine Test Today N93.9 - Abnormal uterine and vaginal bleeding, unspecified AMB Endometrial Biopsy Today N93.9 - Abnormal uterine and vaginal bleeding, unspecified Coding Level of Care Code Procedure Only Diagnoses Abnormal uterine bleeding (AUB) N93.9 CPT Codes Endometrial Biopsy - CPT: 28302-[id number] Biopsy ([id number])
== END 2024-02-21 09:22 | disposition home or self-care (01) ==
LOC: HO.HWS 08:31
PROVIDERS: PCP Internal Medicine; Visit Provider Obstetrics & Gynecology
DX: N93.9 Abnormal uterine and vaginal bleeding, unspecified (principal)
CPT/HCPCS: 58100

== ENCOUNTER 2024-02-21 08:31 | Outpatient (REF) | payer BC, SELFPAY | END 2024-02-21 08:32 | disposition home or self-care (01) | LOC: HO.LNP 08:31 | PROVIDERS: PCP Internal Medicine; Visit Provider Obstetrics & Gynecology | DX: Z32.02 Encounter for pregnancy test, result negative (principal); N93.9 Abnormal uterine and vaginal bleeding, unspecified | CPT/HCPCS: 58100; 81025; 88305 ==

== ENCOUNTER 2024-04-04 14:42 | Outpatient (AMB) | payer BC, SELFPAY ==
--- NOTE | 2024-04-04 14:45 | MHC.OFFVIS ---
Vital Signs 04/04/24 14:46 Height 5 ft 4 in Weight 196 lb 3.382 oz BMI 33.7 Intake Visit Reasons: EMB Results and u/s follow up Allergies clarithromycin [From Biaxin] Allergy (Mild, Verified 02/21/24 08:58) HIVES HPI Comments Details: Presenting for follow-up for pelvic ultrasound and EMB pathology results. Pelvic ultrasound showed the following: Uterus: The uterus is anteverted and measures 9.1 x 5.6 x 5.1 in the sagittal, AP and transverse dimensions. A regular homogeneous endometrium is identified measuring 0.4 cm. The uterine myometrium is heterogeneous with few fibroids. Anterior body subserosal fibroid measures 2.4 x 1.6 x 1.8 cm, previously measuring 2.3 x 1.8 x 1.7 cm. Posterior body subserosal fibroid measures 2.1 x 1.9 x 1.3 cm, previously measuring 2.3 x 1.8 x 2 cm. Another posterior fundus subserosal fibroid is noted measuring 1.8 x 1.4 x 1.3 cm, not visualized on prior exam. Nabothian cysts are seen within the cervix. Both ovaries are visualized on transabdominal imaging.There is normal color flow to the adnexa. Right ovary measures 2.2 x 1.5 x 2.3 with a volume of 4 mL. The left ovary measures 2.6 x 2.2 x 2.1 cm with a volume of 6 mL. No free fluid in the pelvis EMB pathology showed the following: Benign late secretory endometrium; no atypia or carcinoma [facility] Medical History Fibroids Neck pain on left side Dyslipidemia Essential hypertension Obesity (BMI 30.0-34.9) Seasonal allergic rhinitis Hemorrhoids PCOS (polycystic ovarian syndrome) Family history of colon cancer in father Family history of thyroid disease in mother History of cholecystitis History of tension headache Surgical History History of hemorrhoidectomy (~07/2021) H/O colonoscopy History of cholecystectomy Hx of section Hx of tubal ligation Family History Father Colon cancer, Onset Age: 44 Substance abuse Mother Oral cancer Thyroid disease Substance abuse Brother Substance abuse Social History Household Members Other:: , kids Housing Other:: mobile home Alcohol intake: never Patient Tobacco Use Status: Never used Tobacco e-Cigarette/Vaping Use: Never Used Current occupational status: employed Current occupation: [employer] Cognitive needs: No Hearing needs: No Vision needs: Yes Female Reproductive History Menstrual Age of Menarche: 12 Review of Systems Const All systems reviewed & are unremarkable except as noted in HPI and below Reports as per HPI and Reports no additional complaints GI Reports no additional complaints Reports no additional complaints Physical Exam Vital Signs: BMI result Body Mass Index 33.7 Assessment & Plan Assessment & Plan (1) Abnormal uterine bleeding (AUB): Comment: Arlen menopausal Code(s): N93.9 - Abnormal uterine and vaginal bleeding, unspecified Category: Medical Plan: Discussed with the patient the results of ultrasound and endometrial biopsy, recommended to stay on Provera 10 mg p.o. q.d. day 15-24, so a more detailed discussion re: Progesterone treatment including mechanism of action, benefits (regular menses, endometrial protection form unopposed estrogen and reduction in the risk of endometrial hyperplasia and/or cancer ...), risks (Thrombosis, mood changes, weight gain, breast soreness, ? increased breast ca, others). Instructions were given to take the medication 1 tablet daily starting day 15-24 the patient verbalized understanding and agreed with the plan. (2) Fibroids: Code(s): D21.9 - Benign neoplasm of connective and other soft tissue, unspecified Category: Medical Plan: Discussed with the patient the findings on pelvic ultrasound & the risk of myosarcoma; discussed with the patient the options of treatment including expectant management versus hysterectomy; the pros and cons, risks benefits of each approach were discussed with the patient including the fact that in cases of myosarcoma, surgical treatment can lead to early diagnosis and positively affects the prognosis; after further discussion, the patient decided to proceed with expectant management. Will repeat pelvic ultrasound periodically. Instructions given to patient to call in case any of the following occurs: pressure symptoms, abnormal uterine bleeding, pelvic pain; and to schedule 7 months pelvic ultrasound and a follow-up appointment . All questions answered, the patient verbalized understanding and agreed with the plan . Orders: Orders US pelvic and transvaginal 10/09/24 D21.9 - Benign neoplasm of connective and other soft tissue, unspecified Coding Level of Care Code Est Pt Level 3 (26684) Diagnoses Abnormal uterine bleeding (AUB) N93.9 Fibroids D21.9
[2024-04-04 14:46] VITALS: BMI 33.7
== END 2024-04-04 14:58 | disposition home or self-care (01) ==
LOC: HO.HWS 14:42
PROVIDERS: PCP Internal Medicine; Visit Provider Obstetrics & Gynecology
DX: N93.9 Abnormal uterine and vaginal bleeding, unspecified (principal); D21.9 Benign neoplasm of connective and other soft tissue, unspecified
CPT/HCPCS: 99213

== ENCOUNTER → 2024-04-04 14:42 | Outpatient (BNVA) | payer BC, SELFPAY | PROVIDERS: PCP Internal Medicine; Visit Provider Obstetrics & Gynecology ==

== ENCOUNTER → 2024-05-24 15:59 | Outpatient (BNVA) | payer BC, SELFPAY | PROVIDERS: PCP Internal Medicine ==

== ENCOUNTER → 2024-06-18 12:16 | Outpatient (BNVA) | payer BC, SELFPAY | PROVIDERS: PCP Internal Medicine; Visit Provider Internal Medicine ==

== ENCOUNTER 2024-08-30 08:39 | Outpatient (AMB) | payer BC, SELFPAY ==
--- NOTE | 2024-08-30 08:34 | MHC.PC.OV ---
Intake Visit Reasons: Anxiety (Mom ) Intake Note: Pt is having a telehealth visit anxiety mom recent Allergies clarithromycin [From Biaxin] Allergy (Mild, Verified 08/30/24 08:51) HIVES Medication List - Last Reconciled 08/30/24 by Deidre Foster MD sxouqppeds-hoepoxsohvzcy-iexf 50-300-40 mg (Fioricet) 1 cap PO .once a day PRN cetirizine (Zyrtec) 10 mg PO DAILY PRN cholecalciferol (vitamin D3) 50 mcg PO DAILY ibuprofen 200 mg PO Q6H PRN lorazepam 0.5 mg PO DAILY PRN losartan 100 mg PO DAILY scopolamine base (Transderm-Scop) 1 patch transdermal Q3D PRN Tobacco use date assessed: 08/30/24 Dental Screening Dental Screen Date: 08/30/24 Did you have a dental visit in the last 12 months?: No Did you have a dental problem in the last 6 months where you did not have access to dental care?: No Was dental information given to patient?: Patient has dentist HPI Anxiety (Mom ) HPI Details - The patient is a 49-year-old female presenting today for follow-up. Mother recently after battling cancer 6 days ago, and she has been having problems with concentration and felt numb and unable to think clearly initially. She was given a prescription for lorazepam, took 1 dose which she states has helped clear her mental fog , now able to think clearly. Has not needed to take any further dose. - Moderate sleep disturbances has been reported, although they seem to have improved somewhat. [facility] Medical History Fibroids Neck pain on left side Dyslipidemia Essential hypertension Obesity (BMI 30.0-34.9) Seasonal allergic rhinitis Hemorrhoids PCOS (polycystic ovarian syndrome) Family history of colon cancer in father Family history of thyroid disease in mother History of cholecystitis History of tension headache Surgical History History of hemorrhoidectomy (~07/2021) H/O colonoscopy History of cholecystectomy Hx of section Hx of tubal ligation Family History Father Colon cancer, Onset Age: 44 Substance abuse Mother Oral cancer Thyroid disease Substance abuse Brother Substance abuse Social History Household Members Other:: , kids Housing Other:: mobile home Alcohol intake: never Patient Tobacco Use Status: Never used Tobacco e-Cigarette/Vaping Use: Never Used Current occupational status: employed 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 1. Little interest or pleasure in doing things: several days 2. Feeling down, depressed, or hopeless: several days 3. Trouble falling or staying asleep, or sleeping too much: not at all 4. Feeling tired or having little energy: not at all 5. Poor appetite or overeating: not at all 6. Feeling bad about yourself - or that you are a failure or have let yourself or your family down: not at all 7. Trouble concentrating on things, such as reading the newspaper or watching television: not at all 8. Moving or speaking so slowly that other people could have noticed. Or the opposite - being so fidgety or restless that you have been moving around a lot more than usual: not at all 9. Thoughts that you would be better off or of hurting yourself in some way: not at all Total score: 2 Depression Screening Interpretation: Negative Depression Screening Done: Yes 32878 - PHQ-9 Billing: Yes Source: Developed by Drs. Leonel Ely, Lesia Saenz, Luis F Pulido and colleagues, with an educational rebecca from [employer]. Thrive Questionnaire Date Thrive assessed: 12/08/23 AUDIT C Alcohol Use Questionnaire (AUDIT-C) 2. How many drinks containing alcohol do you have on a typical day when you are drinking?: 1 or 2 3. How often do you have six or more drinks on one occasion?: Never Total Score: 0 KEN-7 AMB Questionnaire KEN-7 Date KEN - 7 assessed: 08/30/24 Feeling nervous, anxious, or on edge: 1 = Several days Not being able to stop or control worryin = Not at all Worrying too much about different things: 0 = Not at all Trouble relaxin = Not at all Being so restless that it is hard to sit still: 0 = Not at all Becoming easily annoyed or irritable: 0 = Not at all Feeling afraid as if something awful might happen: 0 = Not at all Total KEN-7 score (0-4 normal; 5-9 mild; 10-14 moderate; 15-21 severe): 1 Source: Developed by Drs. Leonel Ely, Lesia Saenz, Luis F Pulido and colleagues, with an educational rebecca from [employer]. KEN-7 Assessment Billing KEN-7 Assessment Tool: KEN-7 Assessment 10343 Review of Systems Const Reports no additional complaints ENT Reports no additional complaints Card Reports no additional complaints Resp Reports no additional complaints GI Reports no additional complaints Neuro Reports no additional complaints Psych Reports as per HPI Physical exam (Primary Care) Tobacco/Smoking Status: Tobacco use Status Tobacco use date assessed 08/30/24 08/30/24 08:39 Patient Tobacco Use Status Never used Tobacco 08/30/24 08:39 e-Cigarette/Vaping Use Never Used 08/30/24 08:39 PHQ-9: PHQ-9 Score PHQ-9: Total score 2 08/31/24 02:49 Depression Screening Interpretation: Negative Thrive Assessment: Date of Thrive Assessment Date Thrive assessed 12/08/23 08/30/24 08:39 Telehealth Telehealth Telehealth Platform: [facility] Location of provider rendering services: practice address Location of patient: address on file Patient Identification confirmed using: Name, : Yes Telehealth method: video Patient verbally consented to treatment: Yes Patient verbally consented to billing insurance company: Yes Patient informed of any privacy concerns related to visit: Yes Minutes spent on Phone/Video with Pt.: 15 Coding Level of Care Code Tele Est Pt Level 3 (16888) Diagnoses Grief reaction F43.21 Additional Codes KEN-7 Assessment Billing - KEN-7 Assessment Tool: KEN-7 Assessment 43032 ([id number]) PHQ-9 - 32769 - PHQ-9 Billing: Yes ([id number]) Assessment & Plan Assessment & Plan (1) Grief reaction: Code(s): F43.21 - Adjustment disorder with depressed mood Category: Medical Plan: - Continue with Lorazepam as prescribed. discussed use and side effects of medication, Pt instructed to take medicines exactly as directed and that these medications can be habit forming. - Engage in emotional support or counseling as needed to assist with grief. - Report any significant changes in anxiety or sleep disturbance. Patient was informed and verbally consented to the use of an ambient scribe for clinic note documentation during this visit.
== END 2024-08-30 10:24 | disposition home or self-care (01) ==
LOC: HO.HMCC 08:39
PROVIDERS: PCP Internal Medicine; Visit Provider Internal Medicine
DX: F43.21 Adjustment disorder with depressed mood (principal)

== ENCOUNTER → 2024-08-30 08:39 | Outpatient (BNVA) | payer BC, SELFPAY | PROVIDERS: PCP Internal Medicine; Visit Provider Internal Medicine | DX: F43.21 Adjustment disorder with depressed mood (principal); Z79.899 Other long term (current) drug therapy | CPT/HCPCS: 96127 ==

== ENCOUNTER 2024-10-05 13:07 | Outpatient (AMB) | payer BC, SELFPAY ==
[2024-10-05 13:26] VITALS: BP 120/82; PULSE 82; RESP 16; TEMP 36.7; O2SAT 98; BMI 35.2
--- NOTE | 2024-10-05 13:26 | AM.OFFWIN_ITS ---
Intake Vital Signs 10/05/24 13:26 Height 5 ft 4 in Weight 205 lb BMI 35.2 BP 120/82 Blood Pressure Location Lt brachial Position Sitting Respiration 16 Pulse 82 Pulse Source Pulse Oximeter Temp 98.0 F Temp Source Oral Pulse Oximetry (%) 98 Oxygen Delivery Method Room Air Intake Visit Reasons: EP Cough, dizzy Intake Note: Pt is here today c/o cough and vertigo: just came back from a cruise and went to a urgent care in [place] was given steriods and cough med Patient Tobacco Use Status: Never used Tobacco Allergies clarithromycin [From Biaxin] Allergy (Mild, Verified 10/05/24 13:27) HIVES HPI EP Cough, dizzy HPI Details Patient is a 49-year-old female with underlying hypertension, obesity, allergic rhinitis and dyslipidemia, who comes to the walk-in clinic complaining of persistent ear fullness, postnasal drip, dry cough and dizziness/vertigo since being diagnosed on a cruise in [place]. She reports that she was diagnosed with inflammation in her ear, and was written for a course of oral steroids and cough syrup, but symptoms have persisted upon arriving at home. She has no report of fever chills, weakness or dizziness, myalgias or malaise, nausea vomiting or diarrhea, numbness or tingling, hearing difficulties or otic discharge, or other significant associated symptoms. [facility] Medical History Fibroids Neck pain on left side Dyslipidemia Essential hypertension Obesity (BMI 30.0-34.9) Seasonal allergic rhinitis Hemorrhoids PCOS (polycystic ovarian syndrome) Family history of colon cancer in father Family history of thyroid disease in mother History of cholecystitis History of tension headache Surgical History History of hemorrhoidectomy (~07/2021) H/O colonoscopy History of cholecystectomy Hx of section Hx of tubal ligation Family History Father Colon cancer, Onset Age: 44 Substance abuse Mother Oral cancer Thyroid disease Substance abuse Brother Substance abuse Social History Household Members Other:: , kids Housing Other:: mobile home Alcohol intake: never Patient Tobacco Use Status: Never used Tobacco e-Cigarette/Vaping Use: Never Used Current occupational status: employed Current occupation: [employer] Cognitive needs: No Hearing needs: No Vision needs: Yes Female Reproductive History Menstrual Age of Menarche: 12 Review of Systems Neuro Reports confusion Psych Reports confusion Physical Exam Vital Signs: Last Vital Signs Temp 98.0 F 10/05/24 13:26 Pulse 82 10/05/24 13:26 Resp 16 10/05/24 13:26 BP 120/82 10/05/24 13:26 Pulse Ox 98 10/05/24 13:26 Oxygen Delivery Method Room Air 10/05/24 13:26 BMI result Body Mass Index 35.2 Const General: cooperative, healthy appearing, alert, awake and confusion; No comfortable, no acute distress, Physically active, acute distress, anxious, combative or ill appearing Orientation/consciousness: confusion Limitations: no limitations HEENT Head: Yes normal to inspection, Yes normocephalic, No atraumatic, No abrasion, No Acrocyanosis present and No occipital foramen tenderness Ears: hearing grossly normal bilaterally, external ears normal, TM's normal bilaterally and TM abnormal (Bilateral fluid with injection) wth effusion; not bulging, not erythematous, not perforated and not retracted General nose exam: Nasal discharge present Face and sinus: No edema, No fluctuance and No laceration Throat: No tonsils normal, Yes uvula midline, Yes abnormal tonsil and No uvula laterally displaced Cardio Palpation: normal PMI Rate: regular rate Heart sounds: S1 normal heart sound present and S2 normal heart sound present Neuro General: confusion Assessment & Plan Assessment & Plan (1) Serous otitis media: Code(s): H65.90 - Unspecified nonsuppurative otitis media, unspecified ear Qualifiers: Chronicity: acute Laterality: bilateral Recurrence: not specified as recurrent Qualified Code(s): H65.03 - Acute serous otitis media, bilateral Plan Patient has a somewhat persistent course of serous otitis, that has likely been exacerbated with flying for a vacation, and being on a cruise. She was treated in [place] for a cough and middle ear inflammation per patient, and symptoms have persisted upon arriving at home. She is taking an oral course of prednisone, as well as cough syrup, which she reports is not doing much to alleviate symptoms. She still has visible serous otitis, and her TMs are getting quite injected at this point. It seems as though she is getting some intermittent acute labyrinthitis symptoms, although on exam today she had no nystagmus and had a steady gait. She has never taken meclizine before, so we discussed how this should help for recurrent flare-ups of vertigo. I will also write her for a course of Augmentin, in case this is starting to become bacterial, although her TMs do not currently show erythema. Her cough is quite persistent however, so I wrote her for a course of benzonatate to hopefully assist with that. She knows to follow up if symptoms persist, or to go to the emergency department if symptoms become worrisome. Medications: New amoxicillin-pot clavulanate 875-125 mg 1 tab PO BID 10 tabs 0RF benzonatate 200 mg PO BID-TID PRN 30 caps 0RF cough meclizine 25 mg PO TID PRN 14 tabs 0RF dizziness Coding Level of Care Code Est Pt Level 4 (23353) Diagnoses Bilateral acute serous otitis media, recurrence not specified H65.03 Chronicity: acute Laterality: bilateral Recurrence: not specified as recurrent
== END 2024-10-05 14:10 | disposition home or self-care (01) ==
PROVIDERS: PCP Internal Medicine; Visit Provider Physician Assistant Medical
DX: H65.03 Acute serous otitis media, bilateral (principal)

== ENCOUNTER → 2024-10-05 13:07 | Outpatient (BNVA) | payer BC, SELFPAY | PROVIDERS: PCP Internal Medicine ==

== ENCOUNTER 2024-10-11 09:51 | Outpatient (REF) | payer BC, SELFPAY ==
[2024-10-11 13:28] LABS: MANUAL DIFF FLAG NO
[2024-10-11 13:30] LABS: Basophils Percent Auto 0.2 % (0-2); Eosinophils Absolute Auto 0.3 X10*3/uL (0.0-0.4); Hematocrit 42.1 % (37.0-47.0); Hemoglobin 14.3 g/dl (12.0-16.0); Imm Gran Abs Auto 0.03 X10*3/uL (0.00-0.03); Imm Gran Pct Auto 0.4 % (0.0-0.4); Lymphocytes Absolute Auto 2.3 X10*3/uL (1.2-4.9); Lymphocytes Percent Auto 27.2 % (20-40); Mean Corpuscular Hemoglobin 31.5 pg (27.0-33.0); Mean Corpuscular Volume 92.7 fL (80.0-98.0); Mean Platelet Volume 10.6 fL (9.4-12.3); Monocytes Absolute Auto 0.8 X10*3/uL (0.1-1.2); Monocytes Percent Auto 9.6 % (2-11); Neutrophils Percent Auto 59.6 % (45-73); Platelet Count 237 X10*3/uL (160-400); Red Blood Count 4.54 X10*6/uL (4.20-5.50); Red Cell Distribution Width 13.5 % (11.0-16.0); White Blood Count 8.4 X10*3/uL (4.8-10.8)
[2024-10-11 14:05] LABS: Anion Gap 8 (12-20); Blood Urea Nitrogen 12 mg/dL (9-16); Carbon Dioxide 27 mmol/L (22-29); Chloride 107 mmol/L (96-108); Estimated Glomerular Filt Rate > 60; Glucose Random 90 mg/dL (60-115); Magnesium 1.9 mg/dL (1.6-2.6); Potassium 4.4 mmol/L (3.3-5.1); Sodium 138 mmol/L (135-145)
[2024-10-11 14:09] LABS: TSH reflex Free T4 2.75 uIU/mL (0.32-4.0); Vitamin D 25-OH Total 52.9 ng/mL (>30)
[2024-10-11 14:21] LABS: Folate 9.2 ng/mL (> or = 4.0); Vitamin B12 446 pg/mL (200-900)
== END 2024-10-11 09:52 | disposition home or self-care (01) ==
LOC: HO.HMGCLDS 09:51
PROVIDERS: PCP Internal Medicine; Visit Provider Internal Medicine
DX: R05.3 Chronic cough (principal); R20.2 Paresthesia of skin; R20.0 Anesthesia of skin
CPT/HCPCS: 36415; 80048; 82306; 82607; 82746; 83735; 84443; 85025

== ENCOUNTER 2024-10-11 09:51 | Outpatient (AMB) | payer BC, SELFPAY ==
--- NOTE | 2024-10-11 09:48 | A.OFFPC_ITS ---
Intake Visit Reasons: concerns about her continued verigo, weakness Allergies clarithromycin [From Biaxin] Allergy (Mild, Verified 10/11/24 10:13) HIVES Medication List - Last Reconciled 10/11/24 by Deidre Foster MD benzonatate 200 mg PO BID-TID PRN mnywskiilw-pwmumpxjbqsbc-mnvy 50-300-40 mg (Fioricet) 1 cap PO .once a day PRN cetirizine (Zyrtec) 10 mg PO DAILY PRN cholecalciferol (vitamin D3) 50 mcg PO DAILY ibuprofen 200 mg PO Q6H PRN lorazepam 0.5 mg PO DAILY PRN losartan 100 mg PO DAILY meclizine 25 mg PO TID PRN scopolamine base (Transderm-Scop) 1 patch transdermal Q3D PRN Tobacco use date assessed: 10/11/24 Dental Screening Dental Screen Date: 10/11/24 Did you have a dental visit in the last 12 months?: Yes Did you have a dental problem in the last 6 months where you did not have access to dental care?: No Was dental information given to patient?: Patient has dentist HPI concerns about her continued verigo, weakness HPI Details Telehealth visit with the 49-year-old female presenting with persistent cough, vertigo, and limb weakness. She initially was having a dry cough with postnasal drainage and ear fullness as well as intermittent episodes of lightheadedness after a cruise last month. Was diagnosed with inflammation in her ears and given a course of oral steroids and cough medicine but symptoms have persisted. She was then seen at the walk-in clinic a week ago with the same complaint but no fever chills or weakness reported. The patient was prescribed meclizine, Augmentin but only for 5 days for otitis media. She is here now via telehealth still complaining of persistent cough, still with fullness in ears, but no pain or discharge, no fever, no shortness of breath, has still intermittent lightheadedness and now complains of weakness in extremities, but no gait instability reported. [facility] Medical History Fibroids Neck pain on left side Dyslipidemia Essential hypertension Obesity (BMI 30.0-34.9) Seasonal allergic rhinitis Hemorrhoids PCOS (polycystic ovarian syndrome) Family history of colon cancer in father Family history of thyroid disease in mother History of cholecystitis History of tension headache Surgical History History of hemorrhoidectomy (~07/2021) H/O colonoscopy History of cholecystectomy Hx of section Hx of tubal ligation Family History Father Colon cancer, Onset Age: 44 Substance abuse Mother Oral cancer Thyroid disease Substance abuse Brother Substance abuse Social History Household Members Other:: , kids Housing Other:: mobile home Alcohol intake: never Patient Tobacco Use Status: Never used Tobacco e-Cigarette/Vaping Use: Never Used Current occupational status: employed Current occupation: [employer] Cognitive needs: No Hearing needs: No Vision needs: Yes Female Reproductive History Menstrual Age of Menarche: 12 Questionnaire Thrive Questionnaire Date Thrive assessed: 12/08/23 KEN-7 AMB Questionnaire KEN-7 Date KEN - 7 assessed: 08/30/24 Source: Developed by Drs. Leonel Ely, Lesia Saenz, Luis F Pulido and colleagues, with an educational rebecca from [employer]. Review of Systems Const All systems reviewed & are unremarkable except as noted in HPI and below Physical exam (Primary Care) Tobacco/Smoking Status: Tobacco use Status Tobacco use date assessed 10/11/24 10/11/24 09:51 Patient Tobacco Use Status Never used Tobacco 10/11/24 09:51 e-Cigarette/Vaping Use Never Used 10/11/24 09:51 Thrive Assessment: Date of Thrive Assessment Date Thrive assessed 12/08/23 10/11/24 09:51 Telehealth Telehealth Telehealth Platform: [facility] Location of provider rendering services: practice address Location of patient: address on file Patient Identification confirmed using: Name, : Yes Telehealth method: video Patient verbally consented to treatment: Yes Patient verbally consented to billing insurance company: Yes Patient informed of any privacy concerns related to visit: Yes Minutes spent on Phone/Video with Pt.: 15 Coding Level of Care Code Tele Est Pt Level 3 (51741) Diagnoses Persistent cough R05.3 Numbness and tingling R20.0; R20.2 Assessment & Plan Assessment & Plan (1) Persistent cough: Code(s): R05.3 - Chronic cough Plan: Will extend Augmentin prescription to 5 more days. Rx sent to pharmacy. Advised to see us back in a week if no improvement of symptoms (2) Numbness and tingling: Code(s): R20.0 - Anesthesia of skin; R20.2 - Paresthesia of skin Category: Medical Plan: Possible myopathy due to recent steroid intake, will check a basic metabolic panel, magnesium level, TSH with reflex free T4 vitamin-D and CBC with differential Orders: Orders Complete Blood Count Auto Diff 10/11/24 R05.3 - Chronic cough, R20.0 - Anesthesia of skin, R20.2 - Paresthesia of skin Vitamin B12 and Folate 10/11/24 R05.3 - Chronic cough, R20.0 - Anesthesia of skin, R20.2 - Paresthesia of skin Vitamin D 25-OH Total 10/11/24 R05.3 - Chronic cough, R20.0 - Anesthesia of skin, R20.2 - Paresthesia of skin TSH reflex Free T4 10/11/24 R05.3 - Chronic cough, R20.0 - Anesthesia of skin, R20.2 - Paresthesia of skin Magnesium 10/11/24 R05.3 - Chronic cough, R20.0 - Anesthesia of skin, R20.2 - Paresthesia of skin Basic Metabolic Panel 10/11/24 R05.3 - Chronic cough, R20.0 - Anesthesia of skin, R20.2 - Paresthesia of skin Medications: New amoxicillin-pot clavulanate 875-125 mg 1 tab PO Q12H 5 days 10 tabs 0RF H65.90 - Unspecified nonsuppurative otitis media, unspecified ear
== END 2024-10-11 10:56 | disposition home or self-care (01) ==
LOC: HO.HMCC 09:51
PROVIDERS: PCP Internal Medicine; Visit Provider Internal Medicine
DX: R05.3 Chronic cough (principal); R20.0 Anesthesia of skin; R20.2 Paresthesia of skin

== ENCOUNTER 2024-10-17 08:11 | Outpatient (AMB) | payer BC, SELFPAY ==
--- NOTE | 2024-10-17 08:13 | A.OFFVIS_ITS ---
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 She is doing well with no calculating machine operator concerns. 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 Currently sexually active. Denies any vaginal dryness or irritation. Attempting to eat a healthy diet with calcium and vitamin D and stays active with exercise. Last pap smear; 2021. Last mammogram; 2023. Colonoscopy is UTD. FH colon cancer-dad. Mother in August-oral cancer. [facility], [facility] Medical History Fibroids Neck pain on left side Dyslipidemia Essential hypertension Obesity (BMI 30.0-34.9) Seasonal allergic rhinitis Hemorrhoids PCOS (polycystic ovarian syndrome) Family history of colon cancer in father Family history of thyroid disease in mother History of cholecystitis History of tension headache Surgical History History of hemorrhoidectomy (~07/2021) H/O colonoscopy History of cholecystectomy Hx of section Hx of tubal ligation Family History Father Colon cancer, Onset Age: 44 Substance abuse Mother Oral cancer Thyroid disease Substance abuse Brother Substance abuse Paternal Aunt Stomach cancer Family/Other History of breast cancer Social History Household Members Other:: , kids Housing Other:: mobile home Alcohol intake: never Patient Tobacco Use Status: Never used Tobacco e-Cigarette/Vaping Use: Never Used Current occupational status: employed 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 Cognitive needs: No Hearing needs: No Vision needs: Yes Female Reproductive History Menstrual Age of Menarche: 12 control method: permanent sterilization Permanent Sterilization: BTL Total pregnancies: 1 Full term: 1 Number of Living Children: 1 Date of last pap smear: 06/10/22 (neg pap and hpv) Date of Mammogram: 12/26/23 (Birad 1) Review of Systems Const All systems reviewed & are unremarkable except as noted in HPI and below Reports as per HPI Eyes Reports no additional complaints ENT Reports no additional complaints Card Reports no additional complaints Resp Reports no additional complaints GI Reports as per HPI and Reports no additional complaints Reports as per HPI Musc Reports no additional complaints Skin/Breast Reports as per HPI Neuro Reports no additional complaints Psych Reports no additional complaints Endo Reports no additional complaints Alex/Lymph Reports no additional complaints Aller/Immun Reports no additional complaints Physical Exam Vital Signs: BMI result Body Mass Index 35.4 Const General: cooperative, healthy appearing, no acute distress, well developed and alert Orientation/consciousness: patient oriented x3 HEENT Head: Yes normal to inspection Eyes General: appearance normal, both eyes and all related structures Neck Neck: Yes normal visual inspection Thyroid: Thyroid normal Chest Chest palpation & inspection: normal inspection of the chest and other (no puckering, dimpling, peau de orange, retraction, discharge, masses) Breast/axilla inspection: normal inspection of the breasts Breast/axilla palpation: normal palpation of the breasts Resp Effort & Inspection: normal respiratory effort GI Inspection: Yes normal to inspection Palpation (GI): Soft to palpation Rectal Exam - Female: deferred General: Yes bladder normal to palpation External Female Exam: normal external appearance and normal appearance of the urethra Speculum Exam - Vagina: normal appearance of the vagina, normal palpation and normal vaginal discharge Speculum Exam - Cervix: normal appearance of the cervix and normal palpation Bimanual exam- vagina & uterus: normal bimanual exam, normal palpation, uterine size normal, bladder normal to palpation, normal palpation and non-tender Bimanual Exam- Adnexa, other: no masses Skin General skin exam: no rashes or lesions noted Rashes: no rashes Neuro General: patient oriented x3 Cognition (Neuro): normal cognition Extrem General: Yes normal to inspection Psych Attitude: cooperative Thought process: Normal thought process present Assessment & Plan Assessment & Plan (1) Encounter for well woman exam with routine gynecological exam: Code(s): Z01.419 - Encounter for gynecological examination (general) (routine) without abnormal findings Category: Medical Plan Discussed: Current recommendations for pap smears per ASCCP guidelines. Breast awareness, periodic self breast exams and yearly mammogram. Maintain a healthy lifestyle, well balanced diet including Calcium 1,200 mg and Vitamin D 600 IU daily, and routine exercise. Menopause verses perimenopause. Menopause is definitive of 1 year of no menses or 12 months in succession. Report any abnormal uterine bleeding in example prolonged episodes, or short intervals less than 24 days. Patient verbalizes understanding and agrees to the plan of care. She was given opportunity to ask questions and all questions were answered to the best of my ability. 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 Keep follow up appt. US and Dr. Simeon follow up. This note is constructed using voice recognition software. While every effort has been made to ensure accuracy, welding machine operator helper gas errors may have been included. Coding Level of Care Code Est Pt Prev Care 40-64y(12043) Diagnoses Encounter for well woman exam with routine gynecological exam Z01.419
[2024-10-17 08:14] VITALS: BP 112/70; BMI 35.4
== END 2024-10-17 08:51 | disposition home or self-care (01) ==
LOC: HO.HWS 08:12
PROVIDERS: PCP Internal Medicine; Visit Provider Advanced Practice Midwife
DX: Z01.419 Encounter for gynecological examination (general) (routine) without abnormal findings (principal)
CPT/HCPCS: 99396; 99459

== ENCOUNTER 2024-10-29 13:23 | Outpatient (AMB) | payer BC, SELFPAY ==
[2024-10-29 13:30] VITALS: BP 112/90; PULSE 79; RESP 16; TEMP 36.5; O2SAT 98; BMI 36.0
--- NOTE | 2024-10-29 13:30 | A.OFFPC_ITS ---
Vital Signs 10/29/24 13:30 Height 5 ft 4 in Weight 210 lb BMI 36.0 BP 112/90 H Blood Pressure Location Lt brachial Position Sitting Respiration 16 Pulse 79 Pulse Source Pulse Oximeter Temp 97.7 F Temp Source Oral Pulse Oximetry (%) 98 Oxygen Delivery Method Room Air Intake Visit Reasons: dizziness/head vibration Allergies clarithromycin [From Biaxin] Allergy (Mild, Verified 10/29/24 13:41) HIVES Medication List - Last Reconciled 10/29/24 by Deidre Foster MD [id number] 50-300-40 mg (Fioricet) 1 cap PO .once a day PRN cetirizine (Zyrtec) 10 mg PO DAILY PRN cholecalciferol (vitamin D3) 50 mcg PO DAILY ibuprofen 200 mg PO Q6H PRN lorazepam 0.5 mg PO DAILY PRN losartan 100 mg PO DAILY scopolamine base (Transderm-Scop) 1 patch transdermal Q3D PRN Tobacco use date assessed: 10/29/24 Dental Screening Dental Screen Date: 10/11/24 HPI dizziness/head vibration HPI Details 49-year-old lady presents today still co mplaining of intermittent episodes of fullness in the head and sensation of head vibrating, comes and goes, with no precipitating factors, which also after she had ear and sinus infection after her cruise earlier this year. Denies any accompanying headache, no imbalance wants dizziness , nausea reported. She had recent fasting labs done showed normal CBC, electrolytes , fasting glucose, thyroid stimulating hormone level, and vitamin-D. [facility] Medical History Fibroids Neck pain on left side Dyslipidemia Essential hypertension Obesity (BMI 30.0-34.9) Seasonal allergic rhinitis Hemorrhoids PCOS (polycystic ovarian syndrome) Family history of colon cancer in father Family history of thyroid disease in mother History of cholecystitis History of tension headache Surgical History History of hemorrhoidectomy (~07/2021) H/O colonoscopy History of cholecystectomy Hx of section Hx of tubal ligation Family History Father Colon cancer, Onset Age: 44 Substance abuse Mother Oral cancer Thyroid disease Substance abuse Brother Substance abuse Paternal Aunt Stomach cancer Family/Other History of breast cancer Social History Household Members Other:: , kids Housing Other:: mobile home Alcohol intake: never Patient Tobacco Use Status: Never used Tobacco e-Cigarette/Vaping Use: Never Used Current occupational status: employed 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 1. Little interest or pleasure in doing things: not at all 2. Feeling down, depressed, or hopeless: not at all 3. Trouble falling or staying asleep, or sleeping too much: not at all 4. Feeling tired or having little energy: not at all 5. Poor appetite or overeating: not at all 6. Feeling bad about yourself - or that you are a failure or have let yourself or your family down: not at all 7. Trouble concentrating on things, such as reading the newspaper or watching television: not at all 8. Moving or speaking so slowly that other people could have noticed. Or the opposite - being so fidgety or restless that you have been moving around a lot more than usual: not at all 9. Thoughts that you would be better off or of hurting yourself in some way: not at all Total score: 0 Depression Screening Interpretation: Negative Depression Screening Done: Yes 71058 - PHQ-9 Billing: Yes Source: Developed by Drs. Leonel Ely, Lesia Saenz, Luis F Pulido and colleagues, with an educational rebecca from [employer]. Thrive Questionnaire Date Thrive assessed: 12/08/23 I am a: Patient What is your living situation today?: I have a steady place to live Within the past 12 months, did the food you bought not last and you didn't have the money to get more?: Never true Within the past 12 months, did you worry whether your food would run out before you got money to buy more?: Never true Do you have trouble paying for medicines?: No Do you have trouble getting transportation to medical appointments?: No Do you have trouble paying your heating and electricity bill?: No Do you have trouble taking care of your child, family member or friend?: No Do you have trouble with day-to-day activities such as bathing, preparing meals, shopping, managing finances, etc.?: No Are you currently unemployed and looking for a job?: No Are you interested in more education?: No Please select the resources that you would like help with: None Currently or been in a relationship where the following occur: No concerns reported THRIVE Score: 0 AUDIT C Alcohol Use Questionnaire (AUDIT-C) 1. How often do you have a drink containing alcohol?: Never Total Score: 0 KEN-7 AMB Questionnaire KEN-7 Date KEN - 7 assessed: 08/30/24 Feeling nervous, anxious, or on edge: 0 = Not at all Not being able to stop or control worryin = Not at all Worrying too much about different things: 0 = Not at all Trouble relaxin = Not at all Being so restless that it is hard to sit still: 0 = Not at all Becoming easily annoyed or irritable: 0 = Not at all Feeling afraid as if something awful might happen: 0 = Not at all Total KEN-7 score (0-4 normal; 5-9 mild; 10-14 moderate; 15-21 severe): 0 Source: Developed by Drs. Leonel Ely, Lesia Saenz, Luis F Pulido and colleagues, with an educational rebecca from [employer]. KEN-7 Assessment Billing KEN-7 Assessment Tool: KEN-7 Assessment 93555 Review of Systems Const All systems reviewed & are unremarkable except as noted in HPI and below Physical exam (Primary Care) Vital Signs: Last Vital Signs Temp 97.7 F 10/29/24 13:30 Pulse 79 10/29/24 13:30 Resp 16 10/29/24 13:30 BP 112/90 H 10/29/24 13:30 Pulse Ox 98 10/29/24 13:30 Oxygen Delivery Method Room Air 10/29/24 13:30 BMI result Body Mass Index 36.0 Tobacco/Smoking Status: Tobacco use Status Tobacco use date assessed 10/29/24 10/29/24 13:35 Patient Tobacco Use Status Never used Tobacco 10/29/24 13:35 e-Cigarette/Vaping Use Never Used 10/29/24 13:35 PHQ-9: PHQ-9 Score PHQ-9: Total score 0 10/29/24 13:42 Depression Screening Interpretation: Negative Thrive Assessment: Date of Thrive Assessment Date Thrive assessed 12/08/23 10/29/24 13:35 Currently or been in a relationship where the following occur: No concerns reported Const General: no acute distress and alert Nutritional Appearance: obese Orientation/consciousness: patient oriented x3 HENIA Head: Yes normocephalic Ears: external ears normal, TM's normal bilaterally and EAC's normal General nose exam: Normal external nose present and No nasal discharge present Face and sinus: Yes face symmetric and No sinus tenderness Mouth: Normal oral and palatal mucosa present, oropharynx normal and moist mucous membranes Eyes General: appearance normal, both eyes and all related structures Neck Neck: Yes full ROM, Yes no lymphadenopathy and Yes supple Thyroid: Thyroid normal Resp Auscultation: clear to auscultation bilaterally Cardio Other: S1 and S2 present regular rate and rhythm Neuro General: patient oriented x3, gait normal and moves all extremities Gait exam (Neuro): Normal gait present Extrem General: Yes full ROM, Yes no joint enlargement, Yes no pedal edema and Yes normal gait Results Reviewed Results Reviewed: Name: Chary Restrepo Age/Sex: 49/F : 1975 Unit#: [id number] Attend Dr: Deidre Foster MD Re10/11/24 Status: DEP REF Location: [facility] Disch: SPEC : [id number] ERASMO: 10/11/24 STATUS: COMP REQ : [id number] RECD: 10/11/[address]: Deidre Foster MD COMP: 10/11/24 ENTERED: 10/11/[address]: ORDERED: CBC Auto Diff Test Result Flag Reference WBC 8.4 4.8-10.8 X10*3/uL RBC 4.54 4.20-5.50 X10*6/uL HGB 14.3 12.0-16.0 g/dl HCT 42.1 37.0-47.0 % MCV 92.7 80.0-98.0 fL MCH 31.5 27.0-33.0 pg MCHC 34.0 31.0-35.0 g/dl RDW 13.5 11.0-16.0 % PLT 237 160-400 X10*3/uL MPV 10.6 9.4-12.3 fL Neut Pct Auto 59.6 45-73 % ImGran Pct Auto 0.4 0.0-0.4 % Lymp Pct Auto 27.2 20-40 % [facility] Pct Auto 9.6 2-11 % Eos Pct Auto 3.0 0-4 % Baso Pct Auto 0.2 0-2 % NRBC Pct Auto 0.0 0.0-0.2 /100WBC ANC Neut Abs # 5.0 2.0-8.3 x10*3/uL ImGran Abs Auto 0.03 0.00-0.03 X10*3/uL Lymph Abs Auto 2.3 1.2-4.9 X10*3/uL [facility] Abs Auto 0.8 0.1-1.2 X10*3/uL Eos Abs Auto 0.3 0.0-0.4 X10*3/uL Baso Abs Auto 0.0 0.0-0.2 X10*3/uL NRBC Abs Auto 0.000 0.0-0.012 X10*3/uL Name: Chary Restrepo Age/Sex: 49/F : 1975 Unit#: [id number] Attend Dr: Deidre Foster MD Re10/11/24 Status: DEP REF Location: [facility] Disch: SPEC : [id number] ERASMO: 10/11/24 STATUS: COMP REQ : [id number] RECD: 10/11/24-[address]: Deidre Foster MD COMP: 10/11/24 ENTERED: 10/11/24-[address]: ORDERED: BMP, MG, Vitamin D 25-OH, TSH Rflx Test Result Flag Reference Sodium 138 135-145 mmol/L Potassium 4.4 3.3-5.1 mmol/L CL 107 96-108 mmol/L CO2 27 22-29 mmol/L Gap 8 L 12-20 BUN 12 9-16 mg/dL Creat 0.66 0.5-1.4 mg/dL eGFR > 60 Chronic Kidney Disease: Estimated GFR < 60 mL/min/1.73m2 Severe Kidney Disease: Estimated GFR < 15 mL/min/1.73m2 Glucose, Random 90 60-115 mg/dL CA 9.0 8.4-10.2 mg/dL Magnesium 1.9 1.6-2.6 mg/dL Vit D 25-OH Tot 52.9 >30 ng/mL Health Based Reference Values* < 20 ng/mL Deficient 20-30 ng/mL Insufficient > 30 ng/mL Sufficient *Ana HURLEY. N Engl J Med. 2007;357:266-280 Care must be taken in interpreting Vitamin D results from different laboratories and methodologies. Published data demonstrated that results from patients undergoing hemodialysis may show a negative bias when tested with various automated 25-OH vitamin D assays when compared to LC-MS/MS. When testing samples from patients whose predominant form of Vitamin D is Vitamin D2, such as patients receiving Vitamin D2 supplementation, results that are subtherapeutic should be confirmed with another method such as LC-MS/MS. TSH 2.75 0.32-4.0 uIU/mL Coding Level of Care Code Est Pt Level 3 (10520) Diagnoses Benign paroxysmal positional vertigo H81.10 Additional Codes PHQ-9 - 00089 - PHQ-9 Billing: Yes ([id number]) KEN-7 Assessment Billing - KEN-7 Assessment Tool: KEN-7 Assessment 44693 ([id number]) Assessment & Plan Assessment & Plan (1) Benign paroxysmal positional vertigo: Code(s): H81.10 - Benign paroxysmal vertigo, unspecified ear Plan: Referred for physical therapy/vestibular rehab for evaluation and treatment of possible benign positional vertigo Orders: Orders PT Evaluation and Treatment 10/29/24 H81.10 - Benign paroxysmal vertigo, unspecified ear
== END 2024-10-29 13:55 | disposition home or self-care (01) ==
LOC: HO.HMCC 13:24
PROVIDERS: PCP Internal Medicine; Visit Provider Internal Medicine
DX: H81.10 Benign paroxysmal vertigo, unspecified ear (principal)

== ENCOUNTER → 2024-10-29 13:23 | Outpatient (BNVA) | payer BC, SELFPAY | PROVIDERS: PCP Internal Medicine; Visit Provider Internal Medicine | DX: H81.10 Benign paroxysmal vertigo, unspecified ear (principal) | CPT/HCPCS: 96127 ==

== ENCOUNTER 2024-11-06 13:39 | Outpatient (RCR) | payer BC, SELFPAY ==
[2024-11-06 13:56] VITALS: BP 132/76; PULSE 73
--- NOTE | 2024-11-06 15:04 | MHC.PT.EP ---
[facility] [place] Office [place] Office [place] Office [address] [phone] F: [phone] F: [phone] F: [phone] F: [phone] Physical Therapy Plan of Care Date of Evaluation: 11/06/24 Date of Surgery: Diagnosis: Benign paroxysmal vertigo Assessment: Chary is a 49 year old female who is referred to PT for BPPV . She reports of having vibration in B temples and dizziness in L SL since she got off a cruise about 5 weeks back. She has been through a round of cough meds, antibiotics and steroids and has had no change in her symptoms. On PT examination she reports of having vibration sense in B temples which have a spontaneous onset, no dizziness, nausea or vomiting, negative for BPPV in B bailey pikes and B roll test, intact saccades, smooth pursuit, visual tracking, negative head thrust, DVA, VBI and good static and dynamic balance. She is independent with all ADLS but has constant symptoms. She does not present with any symptoms suggestive for vestibular dysfunction. Recommended following up with PCP and possibly ENT and return to PT once cleared by ENT. 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 Manual therapy to restore motion and function. Therapeutic exercise to improve strength and flexibility. Neuromuscular re-education for posture and balance. Therapeutic activities to return to functional activities of daily living. Electronically signed by: Libby Ireland PT DPT Please sign and return to therapist. Thank you for your referral.
--- NOTE | 2024-12-10 10:08 | MHC.PT.DC ---
[facility] [place] Office [place] Office [place] Office [address] Osvaldo Abarca [address] [facility] [phone] F: [phone] F: [phone] F: [phone] F: [phone] Physical Therapy Discharge Report Diagnosis: Benign paroxysmal vertigo Date of Surgery: Date of Evaluation: 11/06/24 Date of Discharge: 12/10/24 Treatments to Date: 1 Cancellations to Date: 0 No Shows to Date: 0 Discharge Status: Discharge Summary: Chary did not present with symptoms suggestive of vestibular dysfunction. No PT indicated at this time. Electronically signed by: Libby Ireland PT DPT Please sign and return to therapist. Thank you for your referral.
== END 2024-12-10 10:08 | disposition home or self-care (01) ==
LOC: HO.PT 13:39
PROVIDERS: PCP Internal Medicine; Visit Provider Internal Medicine
DX: H81.10 Benign paroxysmal vertigo, unspecified ear (principal)
CPT/HCPCS: 97112; 97161

== ENCOUNTER 2024-11-07 11:05 | Outpatient (REF) | payer BC, SELFPAY ==
--- NOTE | ~2024-11-07 | US_ITS ---
CLINICAL HISTORY: D21.9 - Benign neoplasm of connective and other soft tissue, unspecified US pelvis transabdominal and transvaginal Comparison: None Findings: Transabdominal scanning performed for overall anatomy. Transvaginal scanning performed for additional detail. Anteverted uterus is 10.3 cm length. Normal myometrium. Endometrium 2.0 mm thickness. No lesions. There are 3 measured uterine myometrial leiomyomata. These measure 1.3 x 1.2 x 1.4 cm, previously 2.1 x 1.9 x 1.3 cm. 0.9 x 0.7 x 0.8 cm, previously 1.8 x 1.4 x 1.3 cm. 1.8 x 1.7 x 1.2 cm, previously 2.4 x 1.8 x 1.6 cm. Right ovary 2.4 x 1.6 x 1.5 cm. Left ovary 1.8 x 1.5 x 1.3 cm. Normal color Doppler of both ovaries. No free fluid. IMPRESSION: 1. Myometrial uterine leiomyomata This document has been electronically signed by: Sabino Odom MD on 11/08/2024 08:55:54
== END 2024-11-07 11:06 | disposition home or self-care (01) ==
LOC: HO.US 11:05
PROVIDERS: PCP Internal Medicine; Visit Provider Obstetrics & Gynecology
DX: D21.9 Benign neoplasm of connective and other soft tissue, unspecified (principal)
CPT/HCPCS: 76830; 76856

== ENCOUNTER → 2024-11-07 11:09 | Outpatient (BNV) | payer BC, SELFPAY | PROVIDERS: PCP Internal Medicine; Visit Provider Specialist | DX: D25.9 Leiomyoma of uterus, unspecified (principal) | CPT/HCPCS: 76830; 76856 ==

== ENCOUNTER 2024-11-12 10:30 | Emergency (ER) | payer BC, SELFPAY ==
--- NOTE | ~2024-11-12 | CT_ITS ---
EXAMINATION: CT HEAD WITHOUT IV CONTRAST HISTORY: headache 4 weeks. TECHNIQUE: Unenhanced helical CT of the head was performed per standard departmental protocol. Coronal and sagittal reformats of the head were also evaluated. One or more of the following techniques was used for dose reduction: Automated exposure control, adjustment of the mA and/or kV according to patient size, use of iterative reconstruction technique. DLP: 642 mGy-cm COMPARISON: There are no prior studies for comparison. FINDINGS: BRAIN: The brain parenchyma is unremarkable. There is normal pollard/white differentiation. The ventricular system is normal in size and configuration. There is no mass effect or midline shift. No intra- or extra-axial fluid collections are identified. SINUSES: The visualized paranasal sinuses are clear. The mastoid air cells and middle ear cavities are well pneumatized. ORBITS: The visualized orbits are unremarkable. BONES/SOFT TISSUES: The extracranial soft tissues are unremarkable. The calvarium is intact. No suspicious lytic or sclerotic lesions. CT/CT head/brain wo IV con IMPRESSION: Unremarkable unenhanced head CT. Electronically signed by: Leonel Becker MD 11/12/2024 10:58 AM EDT
[2024-11-12 10:36] VITALS: BP 162/90; PULSE 76; RESP 19; TEMP 36.6; O2SAT 98; BMI 35.2
--- NOTE | 2024-11-12 10:36 | ED_ITS ---
HPI - General Adult General Chief complaint: General Medical Stated complaint: Vibration/zapping sensations in head/ears Time Seen by Provider: 11/12/24 13:13 Source: patient and old records reviewed Mode of arrival: ambulatory Limitations: no limitations History of Present Illness ED Provider: JORGE CEDEÑO narrative: 49 yo female with PMH of HTN on losartan who came back from a cruise 6 weeks ago in the following weeks after that had sinus and ear issues completed prednisone and amoxicillin though prednisone caused neuro symptoms in L arm. She has had now 1 month of these zings that go through her brain. No LOC after or confusion. They have no precipitating events they happen on and off. She has no numbness, weakness, loss of vision, fevers. She states she has not seen neurology. No recent dental work or trauma MD complaint: BRAIN ZAPS Onset (ago): week(s) (4) Location: head Radiation: non-radiation Severity: moderate Quality: other ( ZAPS ) Pain Consistency: intermittent Relieving factors: none Exacerbating factors: none Associated symptoms: denies other symptoms Treatments prior to arrival: none Related Data Home Medications ?Medication ?Instructions ?Recorded ?Confirmed ibuprofen 200 mg capsule 200 mg PO Q6H PRN 09/22/22 08/30/24 cetirizine 10 mg tablet (Zyrtec) 10 mg PO DAILY PRN 11/30/22 08/30/24 cholecalciferol (vitamin D3) 50 50 mcg PO DAILY 08/30/24 08/30/24 mcg (2,000 unit) capsule Previous Rx's ?Medication ?Instructions ?Recorded obnunjbrta-rnmrtorexkkgr-jokkykdy 1 cap PO .once a day PRN migraine 05/09/24 50 mg-300 mg-40 mg capsule headache #7 caps (Fioricet) losartan 100 mg tablet 100 mg PO DAILY #90 tabs 05/26/24 lorazepam 0.5 mg tablet 0.5 mg PO DAILY PRN anxiety 08/26/24 attacks #10 tabs scopolamine base 1 mg over 3 days 1 patch transdermal Q3D PRN motion 09/10/24 transdermal patch (Transderm-Scop) sickness #4 ea carbamazepine 100 mg 100 mg PO BID #60 tabs 11/12/24 tablet,extended release,12 hr Allergies Allergy/AdvReac Type Severity Reaction Status Date / Time clarithromycin [From Biaxin] Allergy Mild HIVES Verified 11/12/24 10:38 Review of Systems 2 Review of Systems: Constitutional : No Fever, No Chills, No Fatigue ENT/Mouth : No sore throat, No Rhinorrhea Eyes: No Eye Pain, No Swelling, No Redness Cardiovascular : No Chest Pain, No SOB, No Dyspnea on Exertion Respiratory : No Cough, No Sputum Gastrointestinal : No Nausea, No Vomiting, No Diarrhea, No abdominal Pain Genitourinary : No Dysuria, No Urinary Frequency, No Hematuria, Musculoskeletal : No joint pain, No Myalgias, No Joint Swelling Skin : No Skin Lesions, No rash Neuro : No Weakness, No Numbness, No Dizziness, no Headache Psych : No Anxiety/Panic, No Depression Heme/Lymph: No Bruising, No Bleeding,No Lymphadenopathy Endocrine : No Polyuria, No Polydipsia All other systems reviewed and are negative [facility] Past Medical History Attestation statement: The following information was validated with the patient. Source: old records reviewed Medical History Fibroids Neck pain on left side Dyslipidemia Essential hypertension Obesity (BMI 30.0-34.9) Seasonal allergic rhinitis Hemorrhoids PCOS (polycystic ovarian syndrome) Family history of colon cancer in father Family history of thyroid disease in mother History of cholecystitis History of tension headache Surgical History History of hemorrhoidectomy (~07/2021) H/O colonoscopy History of cholecystectomy Hx of section Hx of tubal ligation Family History Family History Father Colon cancer, Onset Age: 44 Substance abuse Mother Oral cancer Thyroid disease Substance abuse Brother Substance abuse Paternal Aunt Stomach cancer Family/Other History of breast cancer Social History Social History Household Members Other:: , kids Housing Other:: mobile home Alcohol intake: never Patient Tobacco Use Status: Never used Tobacco Smoked in Last 30 Days: No e-Cigarette/Vaping Use: Never Used Use of substances other than those prescribed or required for medical reasons: No Advance Directives: No Advance Directives Information Provided: Yes Do you have a plan to hurt others: No Plan Patient : No Current occupational status: employed 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 Oriented X3. No acute distress. Eyes: Pupils equal, round and reactive to light. no nystagmus slight effusion R ear no signs of infection ENT: Pharynx normal. Neck: Normal inspection. Neck supple. CVS: Normal heart rate and rhythm. Pulses normal. Respiratory: No respiratory distress. Breath sounds normal. Abdomen: Soft and nontender. Skin: Skin warm and dry. Normal skin color. Normal skin turgor. Extremities: No lower extremity edema. No calf ttp Neuro: Oriented X 3. No motor deficit. No sensory deficit. CN2-12 intact Course Course Course Narrative: This is a rapid medical exam performed by Rosetta Roberts NP: Additional HPI, ROS, PE not included below will be deferred to primary provider. Patient is a 49-year-old female presenting with complaint of vibrations/zapping in head x 4 weeks. Has seen PCP who dx as vertigo, went to PT without change in symptoms. Of note, after going on cruise 6 weeks ago has had ongoing cough, was treated with prednisone, abx. Has been on meclizine with some improvement in sxs. Plan: CT head, labs Medical Decision Making Medical Decision Making [facility] Narrative: 49 yo female with PMH of HTN/HLD here with c/o prolonged 4 weeks of atypical zaps tenriism to tenriism with associated neuro findings, confusion, lateralizing signs at this time seems unusual for seizure, stroke. Could be neuropathic will obtain labs, CT head for mass. If negative will refer to her PCP for either neuro referral or outpatient MRI/EEG. Will start on carbamezapine. Differential Diagnosis Differential Diagnoses: The differential diagnosis associated with the presentation includes neuropathic pain, mass Admission/Observation Consideration of admission/observation: Escalation of care including admission/observation considered work up reassuring at this time stable for DC Lab Data [facility] Lab Attestation statement: I reviewed the patient's lab results. 11/12/24 11:39 11/12/24 11:39 Labs: Lab Results 11/12/24 Range/Units 11:39 WBC 7.8 (4.8-10.8) X10*3/uL RBC 4.83 (4.20-5.50) X10*6/uL Hgb 15.0 (12.0-16.0) g/dl Hct 43.3 (37.0-47.0) % MCV 89.6 (80.0-98.0) fL MCH 31.1 (27.0-33.0) pg MCHC 34.6 (31.0-35.0) g/dl RDW 13.2 (11.0-16.0) % Plt Count 217 (160-400) X10*3/uL MPV 10.2 (9.4-12.3) fL Immature Gran % (Auto) 0.4 (0.0-0.4) % Neut % (Auto) 65.4 (45-73) % Lymph % (Auto) 23.7 (20-40) % Coles % (Auto) 9.0 (2-11) % Eos % (Auto) 1.2 (0-4) % Baso % (Auto) 0.3 (0-2) % Lymph # (Auto) 1.8 (1.2-4.9) X10*3/uL Coles # (Auto) 0.7 (0.1-1.2) X10*3/uL Eos # (Auto) 0.1 (0.0-0.4) X10*3/uL Baso # (Auto) 0.0 (0.0-0.2) X10*3/uL Abs Immat Gran (auto) 0.03 (0.00-0.03) X10*3/uL Absolute Neuts (auto) 5.1 (2.0-8.3) x10*3/uL Absolute Nucleated RBC 0.000 (0.0-0.012) X10*3/uL Nucleated RBC % (auto) 0.0 (0.0-0.2) /100WBC Sodium 141 (135-145) mmol/L Potassium 4.4 (3.3-5.1) mmol/L Chloride 106 (96-108) mmol/L Carbon Dioxide 28 (22-29) mmol/L Anion Gap 11 L (12-20) BUN 13 (9-16) mg/dL Creatinine 0.75 (0.5-1.4) mg/dL Estim Creat Clear Calc 98.0 Estimated GFR > 60 Random Glucose 98 (60-115) mg/dL Calcium 10.1 D (8.4-10.2) mg/dL Total Bilirubin 0.3 (0.0-1.0) mg/dL AST 30 (5-31) U/L ALT 25 (0-31) U/L Alkaline Phosphatase 116 (39-117) U/L Total Protein 8.0 (6.5-8.0) g/dL Albumin 4.5 (3.5-5.0) g/dL Independent Interpretation I performed an independent interpretation of an: CT Scan (normal ) Radiology Impression Discussion of test interpretation with radiology: I have reviewed the radiologist's reading. Independent Historian Clinical information obtained from an independent historian. History obtained from or confirmed by: Spouse Prescription Management I considered prescription management with: Other Discharge Plan Discharge Clinical Impression: Sensation disorder Patient Disposition: Home, Self-Care Instructions: Carbamazepine (By mouth) Additional Instructions: labs and infl markers reassuring CT scan no mass seen at this time please talk to your doctor if this continues you may need referral to Neurology or outpatient MRI/EEG return for any worsening symptoms or concerns DO NOT TAKE FIORICE WITH CARBAMAZEPINE COMPARISON: There are no prior studies for comparison. FINDINGS: BRAIN: The brain parenchyma is unremarkable. There is normal pollard/white differentiation. The ventricular system is normal in size and configuration. There is no mass effect or midline shift. No intra- or extra-axial fluid collections are identified. SINUSES: The visualized paranasal sinuses are clear. The mastoid air cells and middle ear cavities are well pneumatized. ORBITS: The visualized orbits are unremarkable. BONES/SOFT TISSUES: The extracranial soft tissues are unremarkable. The calvarium is intact. No suspicious lytic or sclerotic lesions. CT/CT head/brain wo IV con IMPRESSION: Unremarkable unenhanced head CT. Prescriptions: New carbamazepine 100 mg tablet extended release 12 hr 100 mg PO BID Qty: 60 0RF No Action ttynaucpkd-qpzuzqxzjiazi-tejy [Fioricet] 50-300-40 mg capsule 1 cap PO .once a day PRN (Reason: migraine headache) Qty: 7 0RF losartan 100 mg tablet 100 mg PO DAILY Qty: 90 1RF lorazepam 0.5 mg tablet 0.5 mg PO DAILY PRN (Reason: anxiety attacks) Qty: 10 0RF scopolamine base [Transderm-Scop] 1 mg over 3 days patch 3 day 1 patch transdermal Q3D PRN (Reason: motion sickness) Qty: 4 0RF cetirizine [Zyrtec] 10 mg tablet 10 mg PO DAILY PRN ibuprofen 200 mg capsule 200 mg PO Q6H PRN cholecalciferol (vitamin D3) 50 mcg (2,000 unit) capsule 50 mcg PO DAILY Print Language: Slovenian
[2024-11-12 11:42] LABS: MANUAL DIFF FLAG NO
[2024-11-12 11:45] LABS: Basophils Percent Auto 0.3 % (0-2); Eosinophils Absolute Auto 0.1 X10*3/uL (0.0-0.4); Eosinophils Percent Auto 1.2 % (0-4); Hematocrit 43.3 % (37.0-47.0); Imm Gran Abs Auto 0.03 X10*3/uL (0.00-0.03); Imm Gran Pct Auto 0.4 % (0.0-0.4); Lymphocytes Absolute Auto 1.8 X10*3/uL (1.2-4.9); Lymphocytes Percent Auto 23.7 % (20-40); Mean Corpuscular HGB Conc 34.6 g/dl (31.0-35.0); Mean Corpuscular Hemoglobin 31.1 pg (27.0-33.0); Mean Corpuscular Volume 89.6 fL (80.0-98.0); Mean Platelet Volume 10.2 fL (9.4-12.3); Monocytes Absolute Auto 0.7 X10*3/uL (0.1-1.2); Neutrophils Absolute Auto 5.1 x10*3/uL (2.0-8.3); Neutrophils Percent Auto 65.4 % (45-73); Platelet Count 217 X10*3/uL (160-400); Red Blood Count 4.83 X10*6/uL (4.20-5.50); Red Cell Distribution Width 13.2 % (11.0-16.0); White Blood Count 7.8 X10*3/uL (4.8-10.8)
[2024-11-12 12:01] LABS: Alanine Aminotransferase 25 U/L (0-31); Albumin Level 4.5 g/dL (3.5-5.0); Alkaline Phosphatase 116 U/L (39-117); Anion Gap 11 (12-20); Aspartate Amino Transferase 30 U/L (5-31); Bilirubin Total 0.3 mg/dL (0.0-1.0); Blood Urea Nitrogen 13 mg/dL (9-16); Calcium 10.1 mg/dL (8.4-10.2); Carbon Dioxide 28 mmol/L (22-29); Chloride 106 mmol/L (96-108); Estimated Glomerular Filt Rate > 60; Glucose Random 98 mg/dL (60-115); Potassium 4.4 mmol/L (3.3-5.1); Sodium 141 mmol/L (135-145)
[2024-11-12 13:54] VITALS: BP 126/79; PULSE 70; RESP 16; TEMP 36.9; O2SAT 98
[2024-11-12 14:22] LABS: C Reactive Protein 0.72 mg/dL (< or = 0.50)
[2024-11-12 14:37] LABS: Erythrocyte Sedimentation Rate 18 MM/HR (0-20)
[2024-11-12 14:55] VITALS: BP 126/79; PULSE 70; RESP 16; TEMP 36.9; O2SAT 98
== END 2024-11-12 14:55 | disposition home or self-care (01) ==
PROVIDERS: Registered Nurse Emergency; Emergency Provider Emergency Medicine; PCP Internal Medicine
DX: R20.9 Unspecified disturbances of skin sensation (principal); R51.9 Headache, unspecified
CPT/HCPCS: 36415; 70450; 80053; 85025; 85652; 86140; 99284

== ENCOUNTER → 2024-11-12 10:38 | Outpatient (BNV) | payer BC, SELFPAY | PROVIDERS: PCP Internal Medicine; Visit Provider Radiology Diagnostic Radiology | DX: R51.9 Headache, unspecified (principal) | CPT/HCPCS: 70450 ==

== ENCOUNTER 2024-12-12 14:09 | Outpatient (AMB) | payer BC, SELFPAY ==
--- NOTE | 2024-12-12 14:20 | MHC.PC.OV ---
Vital Signs 12/12/24 14:33 Height 5 ft 4 in Weight 209 lb BMI 35.9 BP 126/80 Blood Pressure Location Rt brachial Position Sitting Respiration 16 Pulse 78 Pulse Source Pulse Oximeter Temp 97.8 F Temp Source Oral Pulse Oximetry (%) 98 Oxygen Delivery Method Room Air Intake Visit Reasons: PE Intake Note: Pt is here today for her PE: Last mammogram 12/26/23, papsmear 06/14/22, colonoscopy 03/08/21 Allergies clarithromycin [From Biaxin] Allergy (Mild, Verified 12/12/24 14:55) HIVES Medication List - Last Reconciled 12/12/24 by Deidre Foster MD cetirizine (Zyrtec) 10 mg PO DAILY PRN cholecalciferol (vitamin D3) 50 mcg PO DAILY ibuprofen 200 mg PO Q6H PRN lorazepam 0.5 mg PO DAILY PRN losartan 100 mg PO DAILY scopolamine base (Transderm-Scop) 1 patch transdermal Q3D PRN Tobacco use date assessed: 12/12/24 Dental Screening Dental Screen Date: 12/12/24 Did you have a dental visit in the last 12 months?: Yes Did you have a dental problem in the last 6 months where you did not have access to dental care?: No Was dental information given to patient?: Patient has dentist HPI PE HPI Details 49-year-old lady with hypertension, obesity, and seasonal allergies, here today for her physical exam. She is up-to-date with her screening mammogram last done 12/26/2023 and has an appointment already scheduled. She is up-to-date with her cervical cancer screening, with last Pap smear done in 2021 with benign findings. Up-to-date with her screening colonoscopy done in 2020 with benign findings, due again in 2025 due to positive family history of colon cancer. . She is still getting the vibratory sense inside her right ear, comes and goes, CT of the head came back unremarkable. Already has been evaluated evaluated by vestibular rehab therapy with no vertigo elicited. Has an appointment to see Dr. Baptiste later this month, and has an appointment with ENT in [place] on March 05, 2025. [facility] Medical History Fibroids Neck pain on left side Dyslipidemia Essential hypertension Obesity (BMI 30.0-34.9) Seasonal allergic rhinitis Hemorrhoids PCOS (polycystic ovarian syndrome) Family history of colon cancer in father Family history of thyroid disease in mother History of cholecystitis History of tension headache Surgical History History of hemorrhoidectomy (~07/2021) H/O colonoscopy History of cholecystectomy Hx of section Hx of tubal ligation Family History Father Colon cancer, Onset Age: 44 Substance abuse Mother Oral cancer Thyroid disease Substance abuse Brother Substance abuse Paternal Aunt Stomach cancer Family/Other History of breast cancer Social History Household Members Other:: , kids Housing: House Housing Other:: mobile home Alcohol intake: never Patient Tobacco Use Status: Never used Tobacco e-Cigarette/Vaping Use: Never Used Current occupational status: employed 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 Depression Screening Interpretation: Negative Depression Screening Done: Yes Source: Developed by Drs. Leonel Ely, Lesia Saenz, Luis F Pulido and colleagues, with an educational rebecca from [email or web address]. Thrive Questionnaire Date Thrive assessed: 10/29/24 I am a: Patient What is your living situation today?: I have a steady place to live Within the past 12 months, did the food you bought not last and you didn't have the money to get more?: Never true Within the past 12 months, did you worry whether your food would run out before you got money to buy more?: Never true Do you have trouble paying for medicines?: No Do you have trouble getting transportation to medical appointments?: No Do you have trouble paying your heating and electricity bill?: No Do you have trouble taking care of your child, family member or friend?: No Do you have trouble with day-to-day activities such as bathing, preparing meals, shopping, managing finances, etc.?: No Are you currently unemployed and looking for a job?: No Are you interested in more education?: No Please select the resources that you would like help with: None Currently or been in a relationship where the following occur: No concerns reported THRIVE Score: 0 KEN-7 AMB Questionnaire KEN-7 Date KEN - 7 assessed: 08/30/24 Source: Developed by Drs. Leonel Ely, Lesia Saenz, uLis F Pulido and colleagues, with an educational rebecca from [email or web address]. Review of Systems Const Reports no additional complaints Eyes Details: Goes to [facility] ENT Reports no additional complaints Card Reports no additional complaints Resp Reports no additional complaints GI Reports no additional complaints Reports no additional complaints Musc Reports no additional complaints Skin/Breast Denies breast pain, Denies breast mass and Denies rash Neuro Reports no additional complaints Psych Reports as per HPI Endo Reports no additional complaints Alex/Lymph Reports no additional complaints Aller/Immun Reports no additional complaints Physical exam (Primary Care) Vital Signs: Last Vital Signs Temp 97.8 F 12/12/24 14:33 Pulse 78 12/12/24 14:33 Resp 16 12/12/24 14:33 BP 126/80 12/12/24 14:33 Pulse Ox 98 12/12/24 14:33 Oxygen Delivery Method Room Air 12/12/24 14:33 BMI result Body Mass Index 35.9 Tobacco/Smoking Status: Tobacco use Status Tobacco use date assessed 12/12/24 12/12/24 14:23 Patient Tobacco Use Status Never used Tobacco 12/12/24 14:23 e-Cigarette/Vaping Use Never Used 12/12/24 14:23 Depression Screening Interpretation: Negative Thrive Assessment: Date of Thrive Assessment Date Thrive assessed 10/29/24 12/12/24 14:23 Currently or been in a relationship where the following occur: No concerns reported Const General: no acute distress and alert Nutritional Appearance: obese Orientation/consciousness: patient oriented x3 HENMT Head: Yes normocephalic Ears: external ears normal, TM's normal bilaterally and EAC's normal General nose exam: Normal external nose present and No nasal discharge present Face and sinus: Yes face symmetric and No sinus tenderness Mouth: Normal oral and palatal mucosa present, oropharynx normal and moist mucous membranes Eyes General: appearance normal, both eyes and all related structures Neck Neck: Yes full ROM, Yes no lymphadenopathy and Yes supple Thyroid: Thyroid normal Resp Auscultation: clear to auscultation bilaterally Cardio Other: S1 and S2 present regular rate and rhythm GI Palpation (GI): Soft to palpation, nontender and no masses Auscultation: normal bowel sounds General: Yes deferred Back/Spine/Pelvis Back: No back tenderness Skin General skin exam: no rashes or lesions noted Neuro General: patient oriented x3, gait normal and moves all extremities Gait exam (Neuro): Normal gait present Extrem General: Yes full ROM, Yes no joint enlargement, Yes no pedal edema and Yes normal gait Psych Appearance: grossly normal and well kempt Mental Status: mental status grossly normal Speech and movement: Normal speech and movement present Affect: normal affect Thought process: Normal thought process present Thought content: Normal thought content present Results Reviewed Results Reviewed: Name: Apolinar Hsu Age/Sex: 43/M : 01/05/1981 Unit#: [id number] Attend Dr: Genesis Del Angel MD Re12/07/24 Status: DEP REF Location: [facility] Disch: SPEC : [id number] ERASMO: 12/07/24 STATUS: COMP REQ : [id number] RECD: 12/07/[address]: Deidre Foster MD COMP: 12/07/24 ENTERED: 12/07/[address]: Genesis Del Angel MD ORDERED: CBC Auto Diff Test Result Flag Reference WBC 3.5 L 4.8-10.8 X10*3/uL RBC 4.46 L 4.60-5.80 X10*6/uL HGB 13.9 L 14.0-18.0 g/dl HCT 40.6 L 42.0-52.0 % MCV 91.0 80.0-98.0 fL MCH 31.2 27.0-33.0 pg MCHC 34.2 31.0-36.0 g/dl RDW 11.3 11.0-16.0 % PLT 184 160-400 X10*3/uL MPV 11.2 9.4-12.4 fL Neut Pct Auto 46.8 45-73 % ImGran Pct Auto 0.3 0.0-0.4 % Lymp Pct Auto 38.9 20-40 % Rolette Pct Auto 9.1 2-11 % Eos Pct Auto 4.3 H 0-4 % Baso Pct Auto 0.6 0-2 % NRBC Pct Auto 0.0 0.0-0.2 /100WBC ANC Neut Abs # 1.7 L 2.0-8.3 x10*3/uL ImGran Abs Auto 0.01 0.00-0.03 X10*3/uL Lymph Abs Auto 1.4 1.2-4.9 X10*3/uL Rolette Abs Auto 0.3 0.1-1.2 X10*3/uL Eos Abs Auto 0.2 0.0-0.4 X10*3/uL Baso Abs Auto 0.0 0.0-0.2 X10*3/uL NRBC Abs Auto 0.000 0.0-0.012 X10*3/uL Name: Chary Restrepo Age/Sex: 49/F : 1975 Unit#: [id number] Attend Dr: Crystal Camacho DO Re11/12/24 Status: DEP ER Location: [facility] Disch: SPEC : [id number] ERASMO: 11/12/24-113 STATUS: COMP REQ : [id number] RECD: 11/12/24-[address]: Isi Roberts NP COMP: 11/12/24-1201 ENTERED: 11/12/24-[address]: Deidre Foster MD ORDERED: CMP, C Reactive Prot Test Result Flag Reference Sodium 141 135-145 mmol/L Potassium 4.4 3.3-5.1 mmol/L Slight Hemolysis.Interpret result with caution. CL 106 96-108 mmol/L CO2 28 22-29 mmol/L Gap 11 L 12-20 BUN 13 9-16 mg/dL Creat 0.75 0.5-1.4 mg/dL Estimated CrCl 98.0 Provided height and weight: 162.56 cm, 92.986 kg. eGFR (calculated from the MDRD study equation) and eCrCl (calculated from the Cockcroft-Gault equation) are based on different parameters and may not yield comparable results. If eCrCl result is absurd, please check patient's height/weight. eGFR > 60 Chronic Kidney Disease: Estimated GFR < 60 mL/min/1.73m2 Severe Kidney Disease: Estimated GFR < 15 mL/min/1.73m2 Glucose, Random 98 60-115 mg/dL CA 10.1 # 8.4-10.2 mg/dL Total Bili 0.3 0.0-1.0 mg/dL AST (GOT) 30 5-31 U/L Slight Hemolysis.Interpret result with caution. ALT (GPT) 25 0-31 U/L CRP 0.72 H < or = 0.50 mg/dL Protein, Total 8.0 6.5-8.0 g/dL Alb 4.5 3.5-5.0 g/dL Alk Phos 116 39-117 U/L Coding Level of Care Code Est Pt Prev Care 40-64y(00652) Diagnoses Dyslipidemia E78.5 Essential hypertension I10 Seasonal allergic rhinitis, unspecified trigger J30.2 Allergic rhinitis trigger: unspecified Annual visit for general adult medical examination with abnormal findings Z. H/O motion sickness Z87.898 Assessment & Plan Assessment & Plan (1) Dyslipidemia: Code(s): E78.5 - Hyperlipidemia, unspecified Category: Medical Plan: Fasting lipid panel ordered, advised adherence to healthy eating habits and regular exercise at least 30- minutes of followed intensity exercise 3 to 4 times a week. (2) Essential hypertension: Code(s): I10 - Essential (primary) hypertension Category: Medical Plan: Blood pressure controlled on present treatment, continue go losartan 100 mg daily (3) Seasonal allergic rhinitis: Code(s): J30.2 - Other seasonal allergic rhinitis Category: Medical Qualifiers: Allergic rhinitis trigger: unspecified Qualified Code(s): J30.2 - Other seasonal allergic rhinitis Plan: Continue taking cetirizine 10 mg once a day as needed (4) Annual visit for general adult medical examination with abnormal findings: Code(s): Z. - Encounter for general adult medical examination with abnormal findings Plan: Will check fasting lipids. Recommended dental visit every 6 months and regular eye exams, at least every 2 years. Take adequate calcium in diet and vitamin-D 3 at 2000 IU per cap once a day, in addition to weight-bearing exercises to help maintain good muscle tone and weight control. Instructed to do self-breast exam, and continue with yearly mammogram. Up-to-date with her cervical cancer screening. Due for repeat colonoscopy in 2025. Up-to-date with her COVID booster, Tdap, reminded to get yearly flu shot, eligible not to get the shingles vaccine (5) H/O motion sickness: Code(s): Z87.898 - Personal history of other specified conditions Category: Medical Plan: Prescription sent for scopolamine base, to use as directed, on her upcoming cruise later this year Orders: Orders Lipid Panel Today E78.5 - Hyperlipidemia, unspecified Medications: Refilled scopolamine base (Transderm-Scop) 1 patch transdermal Q3D PRN 10 ea 0RF motion sickness
[2024-12-12 14:33] VITALS: BP 126/80; PULSE 78; RESP 16; TEMP 36.6; O2SAT 98; BMI 35.9
== END 2024-12-12 15:12 | disposition home or self-care (01) ==
LOC: HO.HMCC 14:10
PROVIDERS: PCP Internal Medicine; Visit Provider Internal Medicine
DX: E78.5 Hyperlipidemia, unspecified (principal); I10 Essential (primary) hypertension; J30.2 Other seasonal allergic rhinitis; Z00.01 Encounter for general adult medical examination with abnormal findings; Z87.898 Personal history of other specified conditions

== ENCOUNTER → 2024-12-12 14:09 | Outpatient (BNVA) | payer BC, SELFPAY | PROVIDERS: PCP Internal Medicine; Visit Provider Internal Medicine ==

== ENCOUNTER 2024-12-31 07:37 | Outpatient (REF) | payer BC, SELFPAY | END 2024-12-31 07:38 | disposition home or self-care (01) | LOC: HO.MAMMO 07:37 | PROVIDERS: PCP Internal Medicine; Visit Provider Internal Medicine | DX: Z12.31 Encounter for screening mammogram for malignant neoplasm of breast (principal) | CPT/HCPCS: 77063; 77067 ==

== ENCOUNTER → 2024-12-31 07:45 | Outpatient (BNV) | payer BC, SELFPAY | PROVIDERS: PCP Internal Medicine; Visit Provider Internal Medicine | DX: Z12.31 Encounter for screening mammogram for malignant neoplasm of breast (principal) | CPT/HCPCS: 77063; 77067 ==

== ENCOUNTER 2025-01-14 08:50 | Outpatient (AMB) | payer BC, SELFPAY ==
[2025-01-14 08:56] VITALS: BP 126/82; BMI 35.9
--- NOTE | 2025-01-14 08:56 | MHC.OFFVIS ---
Vital Signs 01/14/25 08:56 Height 5 ft 4 in Weight 209 lb BMI 35.9 BP 126/82 Intake Visit Reasons: Ultra sound follow up Allergies clarithromycin [From Biaxin] Allergy (Mild, Verified 12/12/24 14:55) HIVES HPI Comments Details: Presenting for follow-up ultrasound regarding uterine myoma seen on previous pelvic ultrasound. The patient is doing well with no complaints no abnormal uterine bleeding, pelvic pressure or pain. Pelvic ultrasound done recently showed the following: Anteverted uterus is 10.3 cm length. Normal myometrium. Endometrium 2.0 mm thickness. No lesions. There are 3 measured uterine myometrial leiomyomata. These measure 1.3 x 1.2 x 1.4 cm, previously 2.1 x 1.9 x 1.3 cm. 0.9 x 0.7 x 0.8 cm, previously 1.8 x 1.4 x 1.3 cm. 1.8 x 1.7 x 1.2 cm, previously 2.4 x 1.8 x 1.6 cm. Right ovary 2.4 x 1.6 x 1.5 cm. Left ovary 1.8 x 1.5 x 1.3 cm. Normal color Doppler of both ovaries. No free fluid. [facility] Medical History Fibroids Neck pain on left side Dyslipidemia Essential hypertension Obesity (BMI 30.0-34.9) Seasonal allergic rhinitis Hemorrhoids PCOS (polycystic ovarian syndrome) Family history of colon cancer in father Family history of thyroid disease in mother History of cholecystitis History of tension headache Surgical History History of hemorrhoidectomy (~07/2021) H/O colonoscopy History of cholecystectomy Hx of section Hx of tubal ligation Family History Father Colon cancer, Onset Age: 44 Substance abuse Mother Oral cancer Thyroid disease Substance abuse Brother Substance abuse Paternal Aunt Stomach cancer Family/Other History of breast cancer Social History Household Members Other:: , kids Housing: House Housing Other:: mobile home Alcohol intake: never Patient Tobacco Use Status: Never used Tobacco e-Cigarette/Vaping Use: Never Used Current occupational status: employed Current occupation: [employer] Cognitive needs: No Hearing needs: No Vision needs: Yes Female Reproductive History Menstrual Age of Menarche: 12 Review of Systems Const All systems reviewed & are unremarkable except as noted in HPI and below Reports as per HPI and Reports no additional complaints GI Reports no additional complaints Reports no additional complaints Assessment & Plan Assessment & Plan (1) Uterine myoma: Code(s): D25.9 - Leiomyoma of uterus, unspecified Category: Medical Plan: Discussed with the patient the findings on pelvic ultrasound & the risk of myosarcoma; in addition reviewed with the patient that malignancy and pre malignancy cannot be ruled out without hysterectomy for pathological evaluation ; furthermore, explained to the patient the limitation of pelvic ultrasound and endometrial biopsy in the setting. Discussed with the patient the options of treatment including expectant management versus hysterectomy; the pros and cons, risks benefits of each approach were discussed with the patient including the fact that in cases of myosarcoma, surgical treatment can lead to early diagnosis and positively affects the prognosis; after further discussion, the patient decided to proceed with expectant management. Will repeat pelvic ultrasound periodically. Instructions given to patient to call in case any of the following occurs: pressure symptoms, abnormal uterine bleeding, pelvic pain; and to schedule a 12-months pelvic ultrasound (order placed) and a follow-up appointment . All questions answered, the patient verbalized understanding and agreed with the plan . Orders: Orders US pelvic and transvaginal 12 Months D25.9 - Leiomyoma of uterus, unspecified Coding Level of Care Code Est Pt Level 3 (74246) Diagnoses Uterine myoma D25.9
--- OUTSIDE RECORDS SUMMARY | 2025-01-14 09:18 | XMS_ITS | Patient Health Record ---
Author Organization [facility] Address [address] [place] [address] Care Team Providers Care Security Escort Name Role Phone Kristin HAMILTON, Deidre Mercer Primary Care Provider Un available Matthew Ruiz Unavailable [phone] Allergies Allergen (clinical drug ingredient) Drug/Non Drug Allergy documented on EMR Reaction Allergy Type Onset Date Status Biaxin hives Drug Allergy Active erythromycin Erythromycin hives Drug Allergy A ctive Z-Pac hives Drug Allergy Active Reason For Referral No Information Medications Medication SIG (Take, Route, Fr equency, Duration) Notes Start Date End Date Status Flexeril Not-Taking Problems No Known Problems Plan Of Treatment Pending Test Test Name Order Date ,[id number] TENDON SHEATH/LIGAMENT 1 Insurance Providers Payer Name Payer Address Payer Phone Subscriber Number Group Number Insured Name Patient Relationship to Insured Coverage Start Date Coverage End Date [facility] All Others [address] [place] [address] [phone] [id number] Chary Restrepo Self - patient is the insured Medical (General) History Medical History History ICD Code Chicken pox Surgical History Surgery Date(Month/Year) and tubal 05/13/2009
== END 2025-01-14 09:07 | disposition home or self-care (01) ==
LOC: HO.HWS 08:50
PROVIDERS: PCP Internal Medicine; Visit Provider Obstetrics & Gynecology
DX: D25.9 Leiomyoma of uterus, unspecified (principal)
CPT/HCPCS: 99213

== ENCOUNTER 2025-02-12 11:51 | Outpatient (AMB) | payer OTHER, SELFPAY ==
--- NOTE | 2025-02-12 11:53 | AM.OFFWIN_ITS ---
Intake Vital Signs 02/12/25 11:54 Height 5 ft 4 in Weight 209 lb BMI 35.9 BP 146/90 H Blood Pressure Location Rt brachial Position Sitting Pulse 81 Pulse Source Pulse Oximeter Temp 98.5 F Temp Source Oral Pulse Oximetry (%) 98 Oxygen Delivery Method Room Air Intake Visit Reasons: EP Headache, ?BP Intake Note: presents with headaches, flushing, high blood pressures at home, sudden onset upper inner thigh pain today Patient Tobacco Use Status: Never used Tobacco Allergies clarithromycin (From Biaxin) Allergy (Mild, Verified 02/12/25 11:53) HIVES Do you need a note to return to daycare/school/sports/work: No HPI HPI Comments History of Present Illness Details History of Present Illness - The patient is a 50-year-old female pr esenting with elevated blood pressure and persistent headaches. - Reports a blood pressure reading of 16 4/107 mmHg at home, with headaches persisting for four days. - Headaches are throbbing, primarily at the temples and back of her head, and not relieved by Tylenol or Motrin. - Experiences vibrations in her head and pressure in the right ear for five months, under ENT evaluation. - Woke up with pain in her inner left in ner thigh, worsening throughout the day, affecting walking. - History of hypertension, with medicati on adjustments in May due to high readings and persistent headaches. - No recent changes in diet or salt inta ke; labs were checked and normal. - Denies nausea, vomiting, dizziness, ph otophobia, or chest pain. - Denies visual changes, blurry vision, auras, cold symptoms, or dizziness. Physical Exam General: Cooperative, healthy appearing, comfortable, no acute distress and well developed Orientation: Patient oriented x3 Limitations: No limitations Ears: Hearing grossly normal bilaterally Eyes: Appearance normal, both eyes and all related structures. PERRLA Neck: Normal visual inspection and Yes full ROM. No carotid bruits. Respiratory: Normal respiratory effort and able to speak in complete sentences. Clear to auscultation bilaterally Cardiovascular: Regular rate and rhythm. Normal S1 and S2 Skin: No rashes or lesions noted Neuro: Patient oriented x3 Extremities: Normal to inspection. TTP of the left upper inner thigh. No calf tenderness noted. 1+ pitting edema noted bilaterally. Patient was informed and verbally consented to the use of an ambient scribe for clinic note documentation during this visit. [facility] Medical History Fibroids Neck pain on left side Dyslipidemia Essential hypertension Obesity (BMI 30.0-34.9) Seasonal allergic rhinitis Hemorrhoids PCOS (polycystic ovarian syndrome) Family history of colon cancer in father Family history of thyroid disease in mother History of cholecystitis History of tension headache Surgical History History of hemorrhoidectomy (~07/2021) H/O colonoscopy History of cholecystectomy Hx of section Hx of tubal ligation Family History Father Colon cancer, Onset Age: 44 Substance abuse Mother Oral cancer Thyroid disease Substance abuse Brother Substance abuse Paternal Aunt Stomach cancer Family/Other History of breast cancer Social History Household Members Other:: , kids Housing: House Housing Other:: mobile home Alcohol intake: never Patient Tobacco Use Status: Never used Tobacco e-Cigarette/Vaping Use: Never Used Current occupational status: employed 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52 - New daily persistent headache (NDPH) (2) HTN (hypertension): Code(s): I10 - Essential (primary) hypertension Qualifiers: Hypertension type: primary hypertension Qualified Code(s): I10 - Essential (primary) hypertension Plan Most likely uncontrolled HTN Plan - Adjust blood pressure medication regimen to include a combination therapy to better manage hypertension. - Will add thiazide diuretic to her losartan - change her to HCTZ-losartan - reviewed her labs from November - low salt diet - elevate legs - Schedule follow-up appointment in one to two weeks to assess blood pressure control and symptom improvement. Medications: New losartan-hydrochlorothiazide 100-12.5 mg 1 tab PO DAILY 90 tabs 0RF 90 days Discontinued losartan Discontinued Reason: Ancillary Entered New Order 100 mg PO DAILY 90 tabs 1RF Coding Level of Care Code Est Pt Level 4 (95591) Diagnoses New daily persistent headache G44.52 Headache type: new daily persistent Primary hypertension I10 Hypertension type: primary hypertension
[2025-02-12 11:54] VITALS: BP 146/90; PULSE 81; TEMP 36.9; O2SAT 98; BMI 35.9
--- OUTSIDE RECORDS SUMMARY | 2025-02-12 13:01 | XMS_ITS | Data Portability ---
Author Organization [place] - [facility] Address [address] [place] [address] Care Team Providers Care Orthopedic Physician Assistant Name Role Phone KYMBERLY AC Primary Care Provider Assessment Encounter Date Assessment Date Assessment LastModified by Organization Details LastModified Time 02/03/2025 02/03/2025 Ear exam is normal. She had a CT scan of which the report noted clear sinuses and mastoids, though I do not have the images to review. The only remarkable thing on testing today was she had a type C tymp on the right. It is unclear if this is contributing to her feeling of head vibration. She has already been on prednisone and tried amitriptyline which have not helped. I recommended Flonase and Sudafed. Will plan on short-term follow-up and she will bring in the images from her CT. I'd be interested in if any of the mastoid air cells on the right have fluid. We discussed myringotomy if so to see if this may help symptomatically. [email or web address] Not available 02/06/2025 07:00:06 Plan of Treatment Reminders Order Date Submit Date Provider Last Modified By Organization Details Last Modified Time Details Appointments Establish ed 15 2024 11:15A M CHRISTIANO WILEY MD Not available Not available Not available Lab None recorded. Referral None recorded. Procedures None recorded. Surgeries None recorded. Imaging None recorded. Medication Orders None recorded. Patient TargetsNo targets recorded. Patient InstructionsNo instructions recorded. Reason for Referral None Reported. Results Created Date Observation Date Name Description Value Unit Range Abnormal Flag Note LastModifiedBy Organization Detail LastModifiedTime 02/05/20 25 audio gram No observ ation record ed. BARCODE Not Available 2024 09:48:40 Result Notes None recorded. Problems Name Problem SNOMED Code Status Onset Date Resolution Date Notes Provider Name and Address Organization Details Recorded Time Dysfunction of right eustachian tube 2698972246045 101 Active 2024 GEOVANNA SR, REINALDO 100 [facility],[address], [address], [place] - [facility] 15:04:58 Problem Notes None recorded. Procedures Surgical History Date Name Laterality Status Provider Name and Address Organization Details Recorded Time 02/04/20 Comp Audio with Tymps - 50179 & 78633 completed GEOVANNA SR, REINALDO 100 [facility],[address], [address], [facility] 02/03/2025 15:04:45 cholecystectomy completed CHRISTIANO WILEY MD [address] [place] [address],[address], [address], [facility] - [facility] 02/06/2025 06:56:45 section completed CHRISTIANO WILEY MD 100 [facility],[address], [address], [facility] - [facility] 02/06/2025 06:56:58 Imaging Results None recorded. Procedure Notes None recorded. Medical Equipment None Reported. Allergies No known drug allergies Medications Name Sig Start Date Stop Date Status Note LastModified by Organization Details LastModified Time losartan 50 mg tablet TAKE 1 TABLET BY MOUTH DAILY. 02/03 completed Not Available Not Available Not Available benzonatate 200 mg capsule TAKE 1 CAPSULE ORALLY 2 TO 3 TIMES A DAY NEEDED FOR COUGH 02/03 completed Not Available Not Available Not Available carbamazepi ne ER 100 mg tablet,exte nded release,12 hr TAKE 1 TABLET BY MOUTH TWICE A DAY 02/03 completed Not Available Not Available Not Available prednisone 20 mg tablet TAKE 1 TABLET BY MOUTH TWICE A DAY 02/03 completed Not Available Not Available Not Available Zyrtec 10 mg tablet Take 1 tablet every day by oral route. active Not Available Not Available No t Available amitriptyli ne 25 mg tablet TAKE 1 TABLET BY MOUTH EVERY DAY AT BEDTIME FOR 30 DAYS 02/03 completed Not Available Not Available Not Available lorazepam 0.5 mg tablet TAKE 1 TABLET BY MOUTH DAILY NEEDED FOR ANXIETY ATTACKS 02/03 completed Not Available Not Available Not Available meclizine 25 mg tablet TAKE 1 TABLET BY MOUTH 3 TIMES A DAY NEEDED FOR DIZZINESS 02/03 completed Not Available Not Available Not Available scopolamine 1 mg over 3 days transdermal patch APPLY 1 PATCH EVERY 3 DAYS NEEDED FOR MOTION SICKNESS 02/03 completed Not Available Not Available Not Available bromphenira mine-pseudo ephedrine-D M 2 mg-30 mg-10 mg/5 mL oral syrup TAKE 10 MILLILITE R BY MOUTH EVERY 8 HOURS 02/03 completed Not Available Not Available Not Available losartan 100 mg tablet TAKE 1 TABLET BY MOUTH EVERY DAY active Not Available Not Available No t Available amoxicillin 875 mg-potassiu m clavulanate 125 mg tablet TAKE 1 TABLET BY MOUTH EVERY 12 HOURS FOR 5 DAYS 02/03 completed Not Available Not Available Not Available butalbital- acetaminoph en-caffeine 50 mg-300 mg-40 mg capsule 1 CAP ORALLY ONCE A DAY NEEDED FOR MIGRAINE HEADACHE 02/03 completed Not Available Not Available Not Available Vitals Date Recorded Body height Body mass index (BMI) Body weight Provider Name and Address Organization Details Last Updated DateTime 02/03/2025 162.56 cm 36 kg/m2 11541.4 g Karina Tomas [facility] 02/03/2025 15:32:21 Social History None recorded. Functional Status None recorded. Mental Status None recorded. Family History Nothing Reported. Medical History Condition Response Allergies/Hayfever Y Headaches Y Hypertension Y Gynecological HistoryNo gynecological history recorded. Obstetrics History GPAL:G 0 P 0 0 0 0 Past Encounters Encounter ID Performer Location Encounter Start Date Encounter Closed Date Diagnosis/Indication Diagnosis SNOMED-CT Code Diagnosis ICD10 Code Diagnosis Note [id number] CHRISTIANO WILEY MD [facility] [address] [address] 02/03/2025 14:44:04 02/03/2025 15:49:15 Dysfunction of right eustachian tube [id number] 955620 H69.91 Audiologic al evaluation results: Right ear: Normal hearing with excellent word recognitio n. Left ear: Normal hearing with excellent word recognitio n. Tympanomet ry: Right Ear:Type C Left Ear:Type A Health Concerns Section Related Observation LastModified by Organization Detai ls LastModified Time None Recorded Concern Status LastModified by Organization Details LastModified Time None Recorded Advance Directives Directive None Recorded Payers Insurance Date Sequence Insurance Name Policy Number Policy Darby Covered Member ID Darby Member ID Guarantor Name 02/03/2025 1 [employer] BLUE [employer]IELD (PPO) [id number] Chary Lauro [id number] Chary Restrepo 02/03/2025 1 [employer] (EPO) Chary Restrepo [id number] Charynancy Restrepo 02/03/2025 1 [employer] Marco Restrepo [id number] Charynancy Restrepo 02/03/2025 1 [employer] (PPO) Chary Restrepo [id number] Charynancy Restrepo Notes Date Note Type Note Provider Name and Address Organization Details Recorded Time 5 text/html 50 yo F presents for evaluationvibration in head for 4 monthsmost of the times no headachesno change in soundloud sounds make it worse exertion makes it worse just back from a cruise with cough when it startedcough went awayno seasickness, [facility] came back tried benzonatateseasonal allergies on zyrtec sometimes dizzinesstherapist negative for vertigoCT in the ED [facility] sinuses [facility], recommended amitriptyline tried for 3 weeks right ear bothersomedoes not recall steroids prednisone in September [facility] CHRISTIANO WILEY MD [address] [place] [address],[place] [address], [place], [address], [facility] - [facility] 02/06/2025 07:00:25 OBGyn Episode No OBEpisode recorded.
--- OUTSIDE RECORDS SUMMARY | 2025-02-12 13:02 | XMS_ITS | Patient Health Record ---
Author Organization [facility] Address [address] [place] [address] Care Team Providers Care Electrical Calibrator Name Role Phone Kristin HAMILTON, Deidre Mercer Primary Care Provider Un available Matthew Ruiz Unavailable [phone] Allergies Allergen (clinical drug ingredient) Drug/Non Drug [...] Treatment Pending Test Test Name Order Date ,[id number] TENDON SHEATH/LIGAMENT 1 Insurance Providers Payer Name Payer Address Payer Phone Subscriber Number Group Number Insured Name Patient Relationship to Insured Coverage Start Date Coverage End Date [facility] All Others [address] [place] [address] [phone] [id number] Chary Restrepo Self - patient is the insured Medical (General) History Medical History History ICD Code Chicken pox Surgical History Surgery Date(Month/Year) and tubal 05/13/2009
--- OUTSIDE RECORDS SUMMARY | 2025-02-12 13:02 | XMS_ITS | Patient Health Record ---
Author Organization [facility] Address [address] [place] [address] Care Team Providers Care Directory Clerk Name Role Phone Kristin HAMILTON, Deidre Primary Care Provider Jessica Green Jr, Rajinder Unavailable [phone] Allergies Allergen (clinical drug ingredient) Drug/Non Drug Allergy documented on EMR Reaction Allergy Type Onset Date Status Biaxin Unknown Drug Allergy Active Reason For Referral No Information Medications Medication SIG (Take, Route, Fr equency, Duration) Notes Start Date End Date Status Dicyclomine HCl 20 MG 1 tablet Orally 2- 4 times a day for 30 day(s) 04/18/2014 Active Plan Of Treatment No Information Insurance Providers Payer Name Payer Address Payer Phone Subscriber Number Group Number Insured Name Patient Relationship to Insured Coverage Start Date Coverage End Date [facility] [address] [place], [place] [id number] SADI ROJAS Self - patient is the insured Medical (General) History Medical History History ICD Code Denies [place],DM,CVA,Lung disease,renal dise ase Surgical History Surgery Date(Month/Year) section tubal ligation
== END 2025-02-12 13:07 | disposition home or self-care (01) ==
PROVIDERS: PCP Internal Medicine; Visit Provider Physician Assistant Medical
DX: G44.52 New daily persistent headache (NDPH) (principal); I10 Essential (primary) hypertension

== ENCOUNTER 2025-02-21 07:46 | Outpatient (AMB) | payer OTHER, SELFPAY ==
--- OUTSIDE RECORDS SUMMARY | 2025-02-21 07:49 | XMS_ITS | Patient Health Record ---
Author Organization [facility] Address [address] [place] [address] Care Team Providers Care Continuous Dryout Operator Helper Name Role Phone Kristin HAMILTON, Deidre Primary Care Provider Jessica Green Jr, Rajinder Unavailable Allergies Allergen (clinical drug ingredient) Drug/Non Drug [...] Insured Coverage Start Date Coverage End Date [facility] [address] [place], [place] [id number] SADI ROJAS Self - patient is the insured Medical (General) History Medical History History ICD Code Denies CA,DM,CVA,Lung disease,renal dise ase Surgical History Surgery Date(Month/Year) section tubal ligation
--- OUTSIDE RECORDS SUMMARY | 2025-02-21 07:49 | XMS_ITS | Patient Health Record ---
Author Organization [facility] Address [address] [place] [address] Care Team Providers Care Liquor Store Manager Name Role Phone Kristin HAMILTON, Deidre Mercer Primary Care Provider Un available Matthew Ruiz Unavailable [phone] Allergies Allergen (clinical drug ingredient) Drug/Non Drug [...] Treatment Pending Test Test Name Order Date ,[id number] TENDON SHEATH/LIGAMENT 1 Insurance Providers Payer Name Payer Address Payer Phone Subscriber Number Group Number Insured Name Patient Relationship to Insured Coverage Start Date Coverage End Date [facility] All Others [address] [place] [address] [phone] [id number] Chary Restrepo Self - patient is the insured Medical (General) History Medical History History ICD Code Chicken pox Surgical History Surgery Date(Month/Year) and tubal 05/13/2009
--- NOTE | 2025-02-21 08:26 | A.OFFPC_ITS ---
Vital Signs 02/21/25 08:26 Height 5 ft 4 in Intake Visit Reasons: new bp med Intake Note: pt is here for follow up regarding her BP, 132/90 this morning right before taking medication and the 16th was 118/83, the 15th wad 119/82. patients headaches have resolved. [employer] Supervisor Required: No Allergies clarithromycin (From Biaxin) Allergy (Mild, Verified 02/21/25 09:01) HIVES Medication List - Last Reconciled 02/21/25 by Deidre Foster MD cetirizine (Zyrtec) 10 mg PO DAILY PRN cholecalciferol (vitamin D3) 50 mcg PO DAILY ibuprofen 200 mg PO Q6H PRN lorazepam 0.5 mg PO DAILY PRN losartan-hydrochlorothiazide 100-12.5 mg 1 tab PO DAILY 90 days scopolamine base (Transderm-Scop) 1 patch transdermal Q3D PRN Tobacco use date assessed: 12/12/24 Dental Screening Dental Screen Date: 12/12/24 HPI new bp med HPI Details 50-year-old lady with hypertension, here today for follow-up. She has started taking losartan HCTZ on 02/14/2025, started the walk-in as her blood pressure was markedly elevated, and was having headaches with it. After starting taking the medication her blood pressure has started dropping and has been getting readings at home of 118/83, 119/82, and does not go above 130/80. She had her blood pressure checked at the clinic yesterday an hour after taking her losartan HCTZ and it came back at 140/100. Patient however states that she has not been having headaches ever since she started taking losartan HCTZ. This morning when she took it just before her medicine, it was 132/91. She has changed her diet, has cut down a lot of salty foods, processed foods but admits to have not started exercising yet. She has an appointment to get day with her ENT for follow-up, and plan is to release some pressure in her middle ear. [facility] Medical History Fibroids Neck pain on left side Dyslipidemia Essential hypertension Obesity (BMI 30.0-34.9) Seasonal allergic rhinitis Hemorrhoids PCOS (polycystic ovarian syndrome) Family history of colon cancer in father Family history of thyroid disease in mother History of cholecystitis History of tension headache Surgical History History of hemorrhoidectomy (~07/2021) H/O colonoscopy History of cholecystectomy Hx of section Hx of tubal ligation Family History Father Colon cancer, Onset Age: 44 Substance abuse Mother Oral cancer Thyroid disease Substance abuse Brother Substance abuse Paternal Aunt Stomach cancer Family/Other History of breast cancer Social History Household Members Other:: , kids Housing: House Housing Other:: mobile home Alcohol intake: never Patient Tobacco Use Status: Never used Tobacco e-Cigarette/Vaping Use: Never Used Current occupational status: employed Current occupation: [employer] Cognitive needs: No Hearing needs: No Vision needs: Yes Female Reproductive History Menstrual Age of Menarche: 12 Questionnaire PHQ-9 Over the last 2 weeks, how often have you been bothered by any of the following problems? 1. Little interest or pleasure in doing things: not at all 2. Feeling down, depressed, or hopeless: not at all 3. Trouble falling or staying asleep, or sleeping too much: not at all 4. Feeling tired or having little energy: not at all 5. Poor appetite or overeating: not at all 6. Feeling bad about yourself - or that you are a failure or have let yourself or your family down: not at all 7. Trouble concentrating on things, such as reading the newspaper or watching television: not at all 8. Moving or speaking so slowly that other people could have noticed. Or the opposite - being so fidgety or restless that you have been moving around a lot more than usual: not at all 9. Thoughts that you would be better off or of hurting yourself in some way: not at all Total score: 0 Depression Screening Interpretation: Negative Depression Screening Done: Yes 32032 - PHQ-9 Billing: Yes Source: Developed by Drs. Leonel Ely, Lesia Saenz, Luis F Pulido and colleagues, with an educational rebecca from [employer]. Thrive Questionnaire Date Thrive assessed: 02/21/25 I am a: Patient What is your living situation today?: I have a steady place to live Within the past 12 months, did the food you bought not last and you didn't have the money to get more?: Never true Within the past 12 months, did you worry whether your food would run out before you got money to buy more?: Never true Do you have trouble paying for medicines?: No Do you have trouble getting transportation to medical appointments?: No Do you have trouble paying your heating and electricity bill?: No Do you have trouble taking care of your child, family member or friend?: No Do you have trouble with day-to-day activities such as bathing, preparing meals, shopping, managing finances, etc.?: No Are you currently unemployed and looking for a job?: No Are you interested in more education?: No Please select the resources that you would like help with: None Currently or been in a relationship where the following occur: No concerns repo rted THRIVE Score: 0 KEN-7 AMB Questionnaire KEN-7 Date KEN - 7 assessed: 08/30/24 Source: Developed by Drs. Leonel Ely, Lesia Saenz, Luis F Pulido and colleagues, with an educational rebecca from [employer]. Review of Systems Const Reports no additional complaints, Denies fatigue, Denies frequent falls and Denies headache(s) Eyes Denies change in vision ENT Denies headache(s) Card Denies chest pain, Denies chest pain with activity and Denies irregular heart rhythm Resp Reports no additional complaints Musc Reports no additional complaints Neuro Denies frequent falls and Denies headache(s) Endo Denies fatigue Physical exam (Primary Care) Tobacco/Smoking Status: Tobacco use Status Tobacco use date assessed 12/12/24 02/21/25 08:29 Patient Tobacco Use Status Never used Tobacco 02/21/25 08:29 e-Cigarette/Vaping Use Never Used 02/21/25 08:29 PHQ-9: PHQ-9 Score PHQ-9: Total score 0 02/21/25 08:29 Depression Screening Interpretation: Negative Thrive Assessment: Date of Thrive Assessment Date Thrive assessed 02/21/25 02/21/25 08:29 Currently or been in a relationship where the following occur: No concerns r eported Telehealth Telehealth [facility]health [facility] Location of provider rendering services: practice address Location of patient: address on file Patient Identification confirmed using: Name, : Yes Telehealth method: voice only Patient verbally consented to treatment: Yes Patient verbally consented to billing insurance company: Yes Patient informed of any privacy concerns related to visit: Yes Minutes spent on Phone/Video with Pt.: 20 Coding Level of Care Code Tele Est Pt Level 4 (71835) Diagnoses Essential hypertension I10 Additional Codes PHQ-9 - 59224 - PHQ-9 Billing: Yes ([id number]) Assessment & Plan Assessment & Plan (1) Essential hypertension: Code(s): I10 - Essential (primary) hypertension Category: Medical Plan: Reviewed home blood pressure readings and it has been running below 130/80. Continue on losartan-HCTZ 100-12.5 mg tablet, taken once a day. Reinforced importance of following a low-salt diet and getting regular exercise.
== END 2025-02-21 09:53 | disposition home or self-care (01) ==
LOC: HO.HMCC 07:47
PROVIDERS: PCP Internal Medicine; Visit Provider Internal Medicine
DX: I10 Essential (primary) hypertension (principal)

== ENCOUNTER → 2025-02-21 07:46 | Outpatient (BNVA) | payer OTHER, SELFPAY | PROVIDERS: PCP Internal Medicine; Visit Provider Internal Medicine | DX: I10 Essential (primary) hypertension (principal); Z79.899 Other long term (current) drug therapy; Z13.31 Encounter for screening for depression | CPT/HCPCS: 96127 ==